=== PATIENT | male | born 1935 | race Caucasian/White ===

== ENCOUNTER 2017-06-04 23:42 | Outpatient (CLI) | payer MEDICARE, OTHER | END 2017-06-04 23:43 | disposition critical access hospital (66) | LOC: EMS 23:42 | PROVIDERS: ATTEND Surgery | DX: R07.89 Other chest pain (principal); R11.0 Nausea; R61 Generalized hyperhidrosis | CPT/HCPCS: A0425; A0427 ==

== ENCOUNTER 2017-06-05 00:01 | Observation (INO) | payer MEDICARE, OTHER ==
[2017-06-05] MEDS ORDERED: NITROGLYCERIN 2% PASTE TOP STA (00:21)
--- NOTE | 2017-06-05 00:24 | ED Physician Documentation ---
PD HPI CHEST PAIN - Stated complaint Stated Complaint: CHEST PN - Chief complaint Chief Complaint: Cardiac - History obtained from History obtained from: Patient, EMS - History of Present Illness Timing - onset: How many hours ago (6) Timing - onset during: Rest Timing - details: Still present Pain level max: 7 Pain level now: 1 Quality: Pain Location: Substernal Improved by: Nitro, ASA Associated symptoms: Diaphoresis, Nausea. No: Shortness of air, Vomiting Similar symptoms before: Has not had sx before - Treatment prior to arrival Treatment prior to arrival: Medics administered 4 baby aspirin and nitroglycerin sublingual x2. - Additional information Additional information: The patient is an 81-year-old male who presents with substernal chest pain that started about 6 hours prior to arrival while sitting watching television. He reports associated nausea and diaphoresis. He denies vomiting or shortness of breath. His pain has persisted since that time. Medics found him to be hypertensive with a blood pressure of 210/110. They administered aspirin and sublingual nitroglycerin x2, which did decrease his pain significantly. The patient denies history of similar symptoms in the past. His past medical history is significant for diabetes, but he has not been taking his metformin. He also has a history of hypertension for which he takes lisinopril. He has history of hyperlipidemia, but is not taking his medication. He quit smoking cigarettes about 35 years ago. Review of Systems Constitutional: denies: Fever Ears: denies: Tinnitus/ringing Nose: denies: Congestion Throat: denies: Sore throat Cardiac: reports: Chest pain / pressure Respiratory: denies: Dyspnea, Cough GI: reports: Nausea. denies: Abdominal Pain, Vomiting : denies: Dysuria Skin: denies: Rash Musculoskeletal: denies: Back pain, Extremity swelling Neurologic: denies: Focal weakness, Numbness, Headache PD PAST MEDICAL HISTORY - Past Medical History Cardiovascular: Hypertension, High cholesterol Neuro: None Endocrine/Autoimmune: Type 2 diabetes - Present Medications Home Medications: Ambulatory Orders Medication Instructions Recorded Confirmed Allopurinol 100 mg PO DAILY 06/05/17 06/05/17 Aspirin 81 mg PO DAILY 06/05/17 06/05/17 Lisinopril 20 mg PO DAILY 06/05/17 06/05/17 Nitroglycerin [Nitrostat] 0.4 mg SL Q5MIN PRN #1 bottle 06/05/17 - Allergies Allergies/Adverse Reactions: Allergies Allergy/AdvReac Type Severity Reaction Status Date / Time No Known Drug Allergies Allergy Verified 06/05/17 00:10 PD ED PE NORMAL - Vitals Vital signs reviewed: Yes (hypertensive) - General General: Alert and oriented X 3, Well developed/nourished - HEENT HEENT: Atraumatic, EOMI, Pharynx benign - Neck Neck: No adenopathy, No JVD - Cardiac Cardiac: No murmur, Other (Bradycardic rate, regular rhythm.) - Respiratory Respiratory: No respiratory distress, Clear bilaterally - Abdomen Abdomen: Soft, Non tender - Back Back: No CVA TTP - Derm Derm: No rash - Extremities Extremities: No edema, No calf tenderness / cord - Neuro Neuro: Alert and oriented X 3, No motor deficit, No sensory deficit Results - Vitals Vitals: Vital Signs - 24 hr 06/05/17 06/05/17 06/05/17 00:03 00:25 00:37 Temperature 36.8 C Heart Rate 54 L 57 L 55 L Respiratory 16 17 17 Rate Blood Pressure 156/90 H 198/88 H 163/80 H O2 Saturation 97 97 97 06/05/17 06/05/17 06/05/17 00:48 01:45 02:13 Temperature Heart Rate 64 72 74 Respiratory 17 16 13 Rate Blood Pressure 161/88 H 130/70 137/84 H O2 Saturation 98 100 99 06/05/17 06/05/17 02:56 03:20 Temperature Heart Rate 82 81 Respiratory 17 20 Rate Blood Pressure 112/98 H 162/79 H O2 Saturation 96 95 Oxygen O2 Source Room air - EKG (time done) 00:18 Rate: Rate (enter#) (45) Rhythm: Sinus bradycardia [place]: Normal Intervals: Normal NH QRS: Normal Ischemia: Normal ST segments Compare to prior EKG: Old EKG unavailable Computer interpretation: Agree with computer - Labs Labs: Laboratory Tests 06/05/17 06/05/17 06/05/17 00:30 00:30 00:30 WBC 12.3 H RBC 4.51 L Hgb 14.2 Hct 41.8 L MCV 92.6 MCH 31.5 H MCHC 34.1 RDW 13.6 Plt Count 205 MPV 8.5 Neut # 10.1 H Lymph # 1.6 [place] # 0.5 Eos # 0.1 Baso # 0.1 Absolute Nucleated RBC 0.00 Nucleated RBCs 0.0 Sodium 139 Potassium 4.4 Chloride 105 Carbon Dioxide 26 Anion Gap 8.0 BUN 16 Creatinine 1.0 Estimated GFR (MDRD) 72 L Glucose 166 H Glycated Hemoglobin Estim Average Glucose Calcium 8.7 Magnesium 1.7 Total Bilirubin 0.6 AST 20 ALT 16 Alkaline Phosphatase 64 Troponin I < 0.04 Total Protein 6.9 Albumin 3.8 Globulin 3.1 Albumin/Globulin Ratio 1.2 Lipase 17 L Urine Color Urine Clarity Urine pH Ur Specific [place] Urine Protein Urine Glucose (UA) Urine Ketones Urine Occult Blood Urine Nitrite Urine Bilirubin Urine Urobilinogen Ur Leukocyte Esterase Urine RBC Urine WBC Ur Squamous Epith Cells Urine Bacteria Ur Microscopic Review Urine Culture Comments 06/05/17 06/05/17 06/05/17 00:30 00:55 03:23 WBC RBC Hgb Hct MCV MCH MCHC RDW Plt Count MPV Neut # Lymph # [place] # Eos # Baso # Absolute Nucleated RBC Nucleated RBCs Sodium Potassium Chloride Carbon Dioxide Anion Gap BUN Creatinine Estimated GFR (MDRD) Glucose Glycated Hemoglobin 5.3 Estim Average Glucose 105 H Calcium Magnesium Total Bilirubin AST ALT Alkaline Phosphatase Troponin I < 0.04 Total Protein Albumin Globulin Albumin/Globulin Ratio Lipase Urine Color YELLOW Urine Clarity CLEAR Urine pH 7.0 Ur Specific [place] 1.020 Urine Protein NEGATIVE Urine Glucose (UA) NEGATIVE Urine Ketones 15 H Urine Occult Blood SMALL H Urine Nitrite NEGATIVE Urine Bilirubin NEGATIVE Urine Urobilinogen 0.2 (NORMAL) Ur Leukocyte Esterase NEGATIVE Urine RBC 6-10 H Urine WBC 0-3 Ur Squamous Epith Cells NONE SEEN Urine Bacteria None Seen Ur Microscopic Review INDICATED Urine Culture Comments NOT INDICATED - Rads (name of study) Portable CXR Radiology: Prelim report reviewed, EMP read contemporaneously, See rad report ( Minor left basilar scarring/atelectasis, otherwise unremarkable single the chest.) PD MEDICAL DECISION MAKING - ED course Complexity details: reviewed results, re-evaluated patient, considered differential, d/w patient, d/w family, d/w communication consultant ED course: The patient's presentation is significant for chest pain of about 6 hours duration, with associated hypertension. It is concerning for likely cardiac etiology. His pain improved significantly after administration of aspirin and sublingual nitroglycerin, and resolved completely after application of nitro paste. His initial cardiac enzymes are negative, and his electrocardiogram does not reveal acute ST elevations. His presentation does not suggest aortic dissection, pulmonary embolus, or congestive heart failure. Treatment in the emergency department included administration of nitro paste one-inch topically. I discussed his condition with hospitalist, Dr. Duncan, who will admit him on observation status for further evaluation and treatment. Departure - Departure Disposition: ED Place in Observation Clinical Impression: Chest pain Qualifiers: Chest pain type: unspecified Qualified Code(s): R07.9 - Chest pain, unspecified Condition: Good Discharge Date/Time: 06/05/17 04:59
[2017-06-05] MEDS ORDERED: NITROGLYCERIN 2% PASTE TOP ONE (00:26)
[2017-06-05 00:43] LABS: BASOPHILS # (AUTO) 0.1 10^3/uL (0.0-0.1); BASOPHILS % (AUTO) 0.7 %; EOSINOPHILS # (AUTO) 0.1 10^3/uL (0.0-0.7); EOSINOPHILS % (AUTO) 0.6 %; HCT - HEMATOCRIT 41.8 % (42.0-52.0); HGB - HEMOGLOBIN 14.2 g/dL (14.0-18.0); LYMPHOCYTES # (AUTO) 1.6 10^3/uL (1.5-3.5); MEAN CORPUSCULAR HEMOGLOBIN 31.5 pg (27.0-31.0); MEAN CORPUSCULAR HGB CONC 34.1 g/dL (32.0-36.0); MEAN CORPUSCULAR VOLUME 92.6 fL (80.0-94.0); MEAN PLATELET VOLUME 8.5 fL (7.4-11.4); MONOCYTES # (AUTO) 0.5 10^3/uL (0.0-1.0); MONOCYTES % (AUTO) 3.9 %; NEUTROPHILS # (AUTO) 10.1 10^3/uL (1.5-6.6); NEUTROPHILS % (AUTO) 81.8 %; RED BLOOD COUNT 4.51 10^6/uL (4.70-6.10); RED CELL DISTRIBUTION WIDTH 13.6 % (12.0-15.0); UNCORRECTED WHITE BLOOD COUNT 12.3 x10^3/uL; WHITE BLOOD COUNT 12.3 x10^3/uL (4.8-10.8)
[2017-06-05 00:54] LABS: ALBUMIN/GLOBULIN RATIO 1.2 (1.0-2.2); BILIRUBIN,TOTAL 0.6 mg/dL (0.2-1.0); CALCIUM 8.7 mg/dL (8.5-10.3); MAGNESIUM 1.7 mg/dL (1.7-2.8); POTASSIUM 4.4 mmol/L (3.5-5.0); TOTAL PROTEIN 6.9 g/dL (6.7-8.2)
--- NOTE | 2017-06-05 00:57 | XRAY Preliminary Report ---
Exam: XR Chest 1 View IMPRESSION: Minor left basilar scarring/atelectasis, otherwise unremarkable single view chest. [facility] SITE ID: [id number]
--- NOTE | 2017-06-05 01:00 | XRAY Report ---
EXAM: CHEST RADIOGRAPHY EXAM DATE: 06/05/2017 12:39 AM. CLINICAL HISTORY: Chest pain. COMPARISON: 05/05/2010. TECHNIQUE: 1 view. FINDINGS: Lungs/Pleura: Minor left base atelectasis/scarring, otherwise no focal opacities evident. No pleural effusion. No pneumothorax. Mediastinum: Within exam limitations, cardiomediastinal contour is normal. Other: No bony abnormality noted. IMPRESSION: Minor left basilar scarring/atelectasis, otherwise unremarkable single view chest. [facility] Referring Provider Line: [phone] SITE ID: [id number]
[2017-06-05 01:06] LABS: BILIRUBIN,URINE NEGATIVE (NEGATIVE)
[2017-06-05 01:10] LABS: UA w/ MICROSCOPIC CHARGE YES
[2017-06-05 01:22] LABS: UR CULTURE IF IND NOT INDICATED; WBC,URINE 0-3 /HPF (0-3)
[2017-06-05] MEDS ORDERED: ONDANSETRON ODT 4 MG TABLET TL PRN (03:28)
[2017-06-05] MEDS ORDERED: ASPIRIN CHEW 81 MG TABLET PO SCH (03:28)
[2017-06-05] MEDS ORDERED: ONDANSETRON 4 MG/2 ML VIAL IVP PRN (03:28)
[2017-06-05] MEDS ORDERED: ACETAMINOPHEN 325 MG TABLET PO PRN (03:28)
[2017-06-05] MEDS ORDERED: SODIUM CHLORIDE FLUSH 0.9% 10 ML SYRINGE IVP PRN (03:28)
[2017-06-05] MEDS ORDERED: HYDROcod/ACETAM 5/325 MG TABLET PO PRN (03:28)
[2017-06-05] MEDS ORDERED: MORPHINE 2 MG/ML SYRINGE IVP PRN (03:28)
[2017-06-05] MEDS ORDERED: NITROGLYCERIN SL 0.4 MG TABLET SL PRN (03:28)
[2017-06-05] MEDS ORDERED: ATORVASTATIN 40 MG TABLET PO SCH (03:32)
[2017-06-05 03:55] LABS: HEMOGLOBIN A1C 0.55 g/dL
--- NOTE | 2017-06-05 05:13 | HISTORY & PHYSICAL EXAMINATION ---
Chief Complaint - Chief Complaint Chief Complaint: Chest pain History of Present Illness - Admitted From Admitted From:: Emergency Department - History Obtained From Records Reviewed: Emergency Department and reviewed records from PCP History obtained from: Patient - History of Present Illness HPI Comment/Other: 81-year-old white male with PMH of hypertension, diabetes, and hyperlipidemia who presents tonight with chest "achiness" that started at 1800 last night after eating dinner. The pain was constant, rated 7-8/10 and radiated to his left shoulder with numbess to his left forearm. He experienced mild indigestion with "burping" and "was in a cold sweat." The patient called 911 and EMS administered 324 chewable aspirin and nitroglycerin which relieved his chest pain and relieved his systolic hypertension > 200. In the ED 1 inch of nitro paste is applied to his chest. Patient has no chest pain upon evaluation for admission. He denies shortness of breath or palpitations during the event. He continues to take his daily 81 mg aspirin at home and his lisinopril for his blood pressure but has stopped taking his simvastatin and metformin per his own accord. 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 Patient's medical record from his PCP's office was reviewed on [facility]. In 2006, he had a pre-surgical cardiac evaluation. A Modified Justin Treadmill test showed a fixed irreversible inferior wall defect and an LVEF 60%. Carotid ultrasound was completed to evaluate a right bruit which showed no carotid stenosis. His initial and 3 hour troponin levels are < 0.04 and there are no acute findings on his EKG. He is admitted to observation on the medical unit for repeat troponin levels at the 6 and 12 hour ocasio. Review of Systems - Constitutional Constitutional: denies: Fatigue, Fever, Chills, Weakness - Eyes Eyes: reports: Corrective lenses (Reading glasses.). denies: Blurred vision, Vision loss - Ears, Nose & Throat Ears, Nose & Throat: reports: Dentures (Upper and lower.). denies: Mouth lesions - Cardiovascular Cariovascular: reports: Chest pain. denies: Irregular heart rate, Palpitations , Edema, Syncope, Orthopnea - Respiratory Respiratory: reports: Cough - Gastrointestinal Gastrointestinal: reports: Nausea. denies: Constipation, Diarrhea, Black stools , Bloody stools, Reflux/heartburn - Genitourinary Genitourinary: reports: Frequency, Nocturia - Musculoskeletal Musculoskeletal: reports: Back pain (Chronic), Gout, Joint pain (Left hip). denies: Muscle aches - Neurological Neurological: denies: Headache, Numbness, Memory problems, Abnormal gait - Psychiatric Psychiatric: reports: Depression (Depression for "many" years.), Anxiety. denies: Suicidal, Homicidal - Hematologic/Lymphatic Hematologic/Lymphatic: reports: Bruising - All Other Systems All Other Systems: reports: Reviewed and negative History - Past Medical History Cardiovascular: reports: Hypertension, High cholesterol (Not taking medication) , Other (Premature ventricular contractions) Respiratory: reports: None Neuro: reports: None Endocrine/Autoimmune: reports: Type 2 diabetes GI: reports: GERD, Other (Diverticulosis) : reports: Benign prostate hypertrophy, Nocturia, Frequency, Kidney stones HEENT: reports: None Psych: reports: Depression, Anxiety, Other (Paranoia (documented in PCP charts)) Musculoskeletal: reports: Gout, Chronic back pain (spinal stenosis), Other ( Pain left hip; decided not to have surgery) Derm: reports: None MRSA Hx?: No Other Past Medical History: Dupuytren's contracture - Past Surgical History General: reports: Colonoscopy (2008) Ortho: reports: Other (Left meniscus repair.) - Family & Social History Family History Comment/Other: Patient's mother at 101 of old age. Both his father and brother had diabetes. His son is alive and healthy. Living arrangement: At home Living Situation: With spouse/s.o. 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 Upon skilled nursing him and his moved to [facility]. They currently live in [place] and the patient is the primary (sole) caregiver to his who has progressively worsening dementia over the past 6- 7 years. He dresses, bathes, and feeds his daily. She does not recognize him or her son anymore. He is home-bound to take care of her and pays someone to do the grocery shopping, it is causing him to miss doctor's appointments. His son lives nearby in [place] although is not able to assist regularly due to running his own businesses. Patient expresses concern about continuing to care for his at home and has been discussing the idea of finding placement for her. He enjoyed exercising, fly fishing, and fly fishing tying which is regrets he is unable to do at this time due to his caretaking responsibilities. - POLST Patient has POLST: No Meds/Allgy - Home Medications Home Medications: Ambulatory Orders Medication Instructions Recorded Confirmed Allopurinol 1 tab PO DAILY 06/05/17 06/05/17 Aspirin 1 tab PO DAILY 06/05/17 06/05/17 Lisinopril 1 tab PO DAILY 06/05/17 06/05/17 - Allergies Allergies/Adverse Reactions: Allergies Allergy/AdvReac Type Severity Reaction Status Date / Time No Known Drug Allergies Allergy Verified 06/05/17 00:10 Exam - Vital Signs Reviewed Vital Signs: Yes Vital Signs: Vital Signs x48h Pulse Resp BP Pulse Ox 06/05/17 04:10 81 19 143/90 H 98 - Physical Exam General Appearance: positive: No acute distress, Alert, Other (Appears comfortable on the stretcher, talkative and interactive.) Eyes Bilateral: positive: Normal inspection, PERRL, EOMI ENT: positive: ENT inspection nml, Pharynx nml, No signs of dehydration Neck: positive: No JVD, Trachea midline, Carotid bruit (Right) Respiratory: positive: Chest non-tender, No respiratory distress, Breath sounds nml Cardiovascular: positive: Regular rate & rhythm, Other (2/6 murmur heard best at the left 4th intercostal space.) Peripheral Pulses: positive: 2+ (Radial and pedal.) Abdomen: positive: Non-tender, No organomegaly, Nml bowel sounds, No distention Skin: positive: Color nml, Other (Multiple bruises to bilateral arms.) Extremities: positive: Non-tender, Full ROM, Nml appearance Neurologic/Psychiatric: positive: Oriented x3, Motor nml, Sensation nml, Mood/ affect nml Conclusion/Plan - Problem List (1) Chest pain Conclusion/Plan: Atypical presentation of angina related diabetes versus esophageal spasm. Patient's chest "achiness" occurred after eating dinner and was associated with pain that radiated to his left shoulder and a "cold sweat." His initial and 3 hours troponin values are both < 0.04; and no acute changes seen on EKG. * Repeat troponin at 0600 and 1200. * Cardiac stress test to be completed inpatient vs outpatient. * Telemetry * Assess and monitor for recurrent episodes of chest pain. * Vital signs every 8 hours. Qualifiers: Chest pain type: unspecified Qualified Code(s): R07.9 - Chest pain, unspecified (2) Diabetes Conclusion/Plan: Patient with diabetes previously controlled with Metformin. He has not been taking his Metformin or checking his blood sugars. * ACHS blood sugar checks. * ACHS 1-5 unit sliding scale Novolog insulin. * Hgb A1c * Level III carbohydrate controlled diet. * Address patient's need/reasons for no longer taking his Metformin after reviewing Hgb A1c results. Qualifiers: Diabetes mellitus type: type 2 Diabetes mellitus complication status: with neurologic complications Diabetes mellitus complication detail: with unspecified neuropathy Diabetes mellitus intermediate designer insulin use: without mcfp use Qualified Code(s): E11.40 - Type 2 diabetes mellitus with diabetic neuropathy, unspecified (3) Hypertension Conclusion/Plan: Hypertension not at goal therapy. * Continue home regimen. * 1 inch (gm) nitroglycerin paste placed in ED. * Vital signs every 8 hours. Qualifiers: Hypertension type: unspecified secondary hypertension Qualified Code(s): I15.9 - Secondary hypertension, unspecified; I15 - Secondary hypertension - Lab Results Fish Bones: 06/05/17 00:30 06/05/17 00:30 Issues/Core Measures - Anticipated LOS Anticipated Stay Length: Less than 2 midnights - DVT/VTE - Prophylaxis VTE/DVT Device ordered at admit?: No Not Ordered - Low Risk: Very low risk (Ambulatory) VTE/DVT Prophylaxis med ordered at admit?: No
[2017-06-05] MEDS ORDERED: SODIUM CHLORIDE FLUSH 0.9% 10 ML SYRINGE IVP SCH (06:00)
--- NOTE | 2017-06-05 07:10 | Discharge Plan ---
Discharge Plan Disposition: Home, Self Care Condition: Good Prescriptions: Nitroglycerin [Nitrostat] 0.4 mg SL Q5MIN PRN #1 bottle PRN Reason: Chest Pain Diet: Cardiac Activity Restrictions: No Restrictions Shower Restrictions: No Driving Restrictions: No Assistance Devices: Walker, Cane Weight Bearing: Full Weight Instruction Topics: Heart Failure Warning Signs Additional Instructions or Follow Up instructions: Please take all home medications as prescribed. You will need to see your spoke maker within the first week of discharge to have repeat stress test and echo to rule out possible cardiac problems. Continue to eat a heart healthy diet and drink plenty of water throughout the day. You need to avoid soda and limit caffeine because these can dehydrate you . Get plenty of exercise throughout the day and take rest breaks often. Walking is a great way to exercise. Get plenty of sleep at night, 7-8 hours is preferred. If you snore, you will need to talk to your doctor about a sleep study. Sleep apnea can weaken your hearts ability to contract normally. Be sure to follow up with your primary care provider within the first week of discharge. you will need to schedule an appointment with them. Be sure to let they know you were just released from the hospital. Call 911 or return to the nearest ER if you have chest pain, shortness of breath , fever not relieved with medications or stroklike symptoms. You need to schedule a electrocardiogram with your spoke maker as an outpatient No Smoking: If you smoke, Please STOP! Call for help. Follow-up with: David Winchester MD [Primary Care Provider] -
--- NOTE | 2017-06-05 07:10 | DISCHARGE SUMMARY ---
Discharge Summary Admit Date: 06/05/17 Discharge Date: 06/05/17 (discharge for MS rule out) Discharging Provider: Karyna Rome Primary Care Provider: Pb Winchester MD Code Status: Do Not Attempt Resuscitation Condition at Discharge: Good Discharge Disposition: 01 Home, Self Care Discharge Facility Name: home - DIAGNOSES Admission Diagnoses: 1. chest pain, unspecified 2. Type 2 diabetes mellitus with other diabetic neurological complication 3. Essential primary hypertension Discharge Diagnoses with Status of Each Condition: 1. Acute chest pain with probably angina, unspecified 2. Type 2 diabetes mellitus with other diabetic neurological complication 3. Essential primary hypertension - HPI History of Present Illness: 81-year-old white male with PMH of hypertension, diabetes, and hyperlipidemia who presents tonight with chest "achiness" that started at 1800 last night after eating dinner. The pain was constant, rated 7-8/10 and radiated to his left shoulder with numbess to his left forearm. He experienced mild indigestion with "burping" and "was in a cold sweat." The patient called 911 and EMS administered 324 chewable aspirin and nitroglycerin which relieved his chest pain and relieved his systolic hypertension > 200. In the ED 1 inch of nitro paste is applied to his chest. Patient has no chest pain upon evaluation for admission. He denies shortness of breath or palpitations during the event. He continues to take his daily 81 mg aspirin at home and his lisinopril for his blood pressure but has stopped taking his simvastatin and metformin per his own accord. 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 Patient's medical [facility] In 2006, he had a pre-surgical cardiac evaluation. A Modified Justin Treadmill test showed a fixed irreversible inferior wall defect and an LVEF 60%. Carotid ultrasound was completed to evaluate a right bruit which showed no carotid stenosis. His initial and 3 hour troponin levels are < 0.04 and there are no acute findings on his EKG. He is admitted to observation on the medical unit for repeat troponin levels at the 6 and 12 hour ocasio. - CONSULTS | PROCEDURES Consultations: none Procedures: none - HOSPITAL COURSE Hospital Course: Patient is an 81 year old admitted for chest pain rule out. He was admitted from the ER with troponins trended. Patient was continued on chest pain protocol including aspirin, nitro, morphine oxygen and statin therapy. He remained on lisinopril home dosage. He had EKG x 2 and remained in sinus rate and rhythm. He had nitropaste that helped and pain resolved. His chest xray was with no acute process. He was able to go home with followup stress test and echo with primary care referral to cardiology. Patient went home with son with referral and instructions for followup - ALLERGIES Allergies/Adverse Reactions: Allergies Allergy/AdvReac Type Severity Reaction Status Date / Time No Known Drug Allergies Allergy Verified 06/05/17 00:10 - MEDICATIONS Home Medications: Ambulatory Orders Medication Instructions Recorded Confirmed Allopurinol 100 mg PO DAILY 06/05/17 06/05/17 Aspirin 81 mg PO DAILY 06/05/17 06/05/17 Lisinopril 20 mg PO DAILY 06/05/17 06/05/17 Nitroglycerin [Nitrostat] 0.4 mg SL Q5MIN PRN #1 bottle 06/05/17 - PHYSICAL EXAM AT DISCHARGE General Appearance: positive: No acute distress, Alert Eyes Bilateral: positive: Normal inspection, PERRL, EOMI ENT: positive: ENT inspection nml, Pharynx nml, No signs of dehydration Neck: positive: Nml inspection, Thyroid nml, No JVD, Trachea midline Respiratory: positive: Chest non-tender, No respiratory distress, Breath sounds nml Cardiovascular: positive: Regular rate & rhythm, No murmur, No gallop Peripheral Pulses: positive: 2+ Abdomen: positive: Non-tender, No organomegaly, Nml bowel sounds, No distention Back: positive: Nml inspection. negative: CVA tenderness (R), CVA tenderness (L ) Skin: positive: Color nml, No rash, Warm, Dry Extremities: positive: Non-tender, Full ROM Neurologic/Psychiatric: positive: Oriented x3, CN's nml (2-12), Motor nml, Sensation nml, Mood/affect nml - LABS Result Diagrams: 06/05/17 00:30 06/05/17 00:30 - DIAGNOSTIC IMAGING Diagnostic Imaging Results: Final report reviewed - FOLLOW UP Follow Up: Patient was instructed to followup with Dr Winchester within 1 week of discharge and to return to the ER if symptoms reoccur. Time spent with patient was 40 minutes for education, assessment and planning.
[2017-06-05] MEDS: INSULIN ASPART 300 UNIT/3 ML PEN SUBQ SCH ×2 (08:12→12:08)
[2017-06-05] MEDS ORDERED: POLYETHYLENE GLYCOL 3350 17 GM PACKET PO SCH (09:00)
[2017-06-05] MEDS ORDERED: LISINOPRIL 20 MG TABLET PO SCH (09:00)
[2017-06-05] MEDS ORDERED: ALLOPURINOL 100 MG TABLET PO SCH (09:00)
[2017-06-05 12:11] VITALS: BP 143/73
== END 2017-06-05 13:12 | disposition home or self-care (01) ==
LOC: EDUNIT# → ED 00:01 → SUPCPDRO 00:01 → MS 03:29
PROVIDERS: ADMIT Specialist; ATTEND Nurse Practitioner
DX: R07.9 Chest pain, unspecified (principal); E11.40 Type 2 diabetes mellitus with diabetic neuropathy, unspecified; I10 Essential (primary) hypertension; E78.5 Hyperlipidemia, unspecified; H54.7 Unspecified visual loss; N40.1 Benign prostatic hyperplasia with lower urinary tract symptoms; R35.0 Frequency of micturition; R35.1 Nocturia; F32.9 Major depressive disorder, single episode, unspecified; F41.9 Anxiety disorder, unspecified; Z79.82 Long term (current) use of aspirin; Z87.891 Personal history of nicotine dependence
CPT/HCPCS: 36415; 71010; 80053; 81001; 83036; 83690; 83735; 84484; 85025; 93005; 99285; A9270; G0378; 81003; 87086

== ENCOUNTER 2019-01-15 10:47 | Outpatient (CLI) | payer MEDICARE, OTHER | END 2019-01-15 10:48 | disposition critical access hospital (66) | LOC: EMS 10:47 | PROVIDERS: ATTEND Surgery | DX: R47.81 Slurred speech (principal) | CPT/HCPCS: A0425; A0427 ==

== ENCOUNTER 2019-01-15 11:08 | Emergency (ER) | payer MEDICARE, OTHER ==
--- NOTE | 2019-01-15 11:21 | ED Physician Documentation ---
PD HPI FOCAL NEURO - Stated complaint Stated Complaint: POSS STROKE - Chief complaint Chief Complaint: Neuro - History obtained from History obtained from: Patient, EMS - History of Present Illness Timing - onset: Today (The patient got up from sleep and seemed to feel okay. He then went downstairs and made himself some breakfast and as he was drinking some coffee it dribbled out the right side of his mouth. He then went into the bathroom to shave and noticed a right facial droop. He did not feel any weakness of his arms or legs. He did not have any headache. EMS was called and brought him here with a notice of a facial droop without any other focal weakness. He thought he was having some troubles getting words out when talking with dispatcher but was not sure whether it was because of the facial muscles.) Timing - duration: Hours (3-4 hours or longer (awoke with symptoms)) Timing - details: Abrupt onset, Still present Severity of deficit: Moderate Weakness: Face. No: Arm, Leg Numbness: Face. No: Arm, Leg Associated symptoms: No: Headache, Nausea / vomiting Contributing factors: negative: Anticoagulated, Vascular dz, Atrial fibrillation Baseline status: positive: A&OX3, ambulatory, indep Similar symptoms before: Has not had sx before Recently seen: Not recently seen Review of Systems Constitutional: denies: Fever Nose: denies: Rhinorrhea / runny nose, Congestion Throat: denies: Sore throat Cardiac: denies: Chest pain / pressure, Palpitations Respiratory: denies: Dyspnea, Cough GI: denies: Abdominal Pain, Nausea, Vomiting Neurologic: reports: Focal weakness, Difficulty speaking (just briefly this morning). denies: Altered mental status, Headache PD PAST MEDICAL HISTORY - Past Medical History Cardiovascular: Hypertension, High cholesterol Respiratory: None Endocrine/Autoimmune: Type 2 diabetes GI: GERD, Other (Diverticulosis) : Benign prostate hypertrophy, Nocturia, Frequency, Kidney stones HEENT: None Psych: Depression, Anxiety, Other (Paranoia (documented in PCP charts)) Musculoskeletal: Gout, Chronic back pain (spinal stenosis), Other (Pain left hip; decided not to have surgery) Derm: None - Past Surgical History Past Surgical History: No General: Colonoscopy (2008) Ortho: Other (Left meniscus repair.) - Present Medications Home Medications: Ambulatory Orders Medication Instructions Recorded Confirmed Allopurinol 100 mg PO DAILY 06/05/17 06/05/17 Aspirin 81 mg PO DAILY 06/05/17 06/05/17 Lisinopril 20 mg PO DAILY 06/05/17 06/05/17 Nitroglycerin [Nitrostat] 0.4 mg SL Q5MIN PRN #1 bottle 06/05/17 Clopidogrel [Plavix] 75 mg PO DAILY #10 tablet 01/15/19 - Allergies Allergies/Adverse Reactions: Allergies Allergy/AdvReac Type Severity Reaction Status Date / Time No Known Drug Allergies Allergy Verified 01/15/19 11:18 - Social History Does the pt smoke?: No Smoking Status: Former smoker Does the pt drink ETOH?: No Does the pt have substance abuse?: No - Immunizations Immunizations are current?: Yes - POLST Patient has POLST: No PD ED PE NORMAL - Vitals Vital signs reviewed: Yes - General General: Alert and oriented X 3, Well developed/nourished - HEENT HEENT: Ears normal, Moist mucous membranes, Pharynx benign - Neck Neck: Supple, no meningeal sign, No adenopathy, No JVD - Cardiac Cardiac: RRR, No murmur - Respiratory Respiratory: Clear bilaterally - Abdomen Abdomen: Soft, Non tender - Back Back: No CVA TTP - Derm Derm: Normal color, Warm and dry - Extremities Extremities: No tenderness to palpate, Normal ROM s pain, No edema, No calf tenderness / cord - Neuro Neuro: Alert and oriented X 3, Normal speech, Other (right face with focal weakness lower face. The forehead appears normal function for eyebrow raising. ) NIHSS - Level of Consciousness Level of consciousness: (0) Alert, Keenly responsive LOC Questions: (0) Answers both Q's correct LOC Commands: (0) Performs both correctly - Gaze Best Gaze: (0) Normal - Visual Visual: (0) No loss - Facial Palsy Facial Palsy: (2) Partial paralysis - Motor Arms (both separate) Motor Arm (right): (0) No drift Motor Arm (left): (0) No drift - Motor Legs (both separate) Motor Leg (right): (0) No drift Motor Leg (left): (0) No drift - Limb Ataxia Limb Ataxia: (0) Absent - Sensory Sensory: (0) Normal - Best Language Best Language: (0) No aphasia - Dysarthria Dysarthria: (0) Normal - Extinction and Inattention (formally neg Extinction and inattention: (0) No abnormality - Total Score/Results Total Score/Result: 2 Results - Vitals Vitals: Vital Signs - 24 hr 01/15/19 01/15/19 01/15/19 11:11 12:56 13:39 Temperature 36.7 C 36.6 C Heart Rate 55 L 67 73 Respiratory 15 20 20 Rate Blood Pressure 178/91 H 189/86 H 156/116 H O2 Saturation 99 100 99 Oxygen O2 Source Room air - Labs Labs: Laboratory Tests 01/15/19 01/15/19 01/15/19 11:26 11:26 11:26 WBC 7.2 RBC 4.52 L Hgb 14.6 Hct 42.5 MCV 93.9 MCH 32.3 H MCHC 34.4 RDW 13.2 Plt Count 215 MPV 7.8 Neut # (Auto) 4.4 Lymph # (Auto) 1.8 Mccormick # (Auto) 0.7 Eos # (Auto) 0.2 Baso # (Auto) 0.1 Absolute Nucleated RBC 0.00 Nucleated RBC % 0.0 ESR 1 Sodium 135 Potassium 3.6 Chloride 97 L Carbon Dioxide 30 Anion Gap 8.0 BUN 16 Creatinine 1.0 Estimated GFR (MDRD) 72 L Glucose 111 H Calcium 8.9 Total Bilirubin 1.1 H AST 36 ALT 43 Alkaline Phosphatase 60 Total Protein 7.1 Albumin 3.8 Globulin 3.3 Albumin/Globulin Ratio 1.2 Lipase 31 PD MEDICAL DECISION MAKING - ED course Complexity details: re-evaluated patient (His facial weakness is improving while here in the ER. There is still a very minimal facial weakness but much improved and is able to walk steadily and speak clearly. I talked with stroke neurology who said he would not be a candidate for any intervention either TPA or endovascular. They did review the CTA showing the noncritical narrowings. There is suggestion was to add Plavix daily for 3 months to his baby aspirin.), considered differential (Facial weakness along with some difficulty speaking and feeling a bit off balance would be suggestive of a central cause. His forehead does not seem to be involved but only the lower part of the face on the right side also suggesting central cause as opposed to a facial nerve palsy. We evaluated him as potential stroke. His symptoms are improving on route.), d/w patient Departure - Departure Disposition: 07 Against Medical Advice Clinical Impression: Stroke-like symptoms, Facial weakness, TIA (transient ischemic attack) Condition: Stable Record reviewed to determine appropriate education?: Yes Instructions: ED Transient Ischemic Attack Follow-Up: Susan Becker MD [Provider Admit Priv/Credential] - Prescriptions: Clopidogrel [Plavix] 75 mg PO DAILY #10 tablet Comments: Continue your baby aspirin and add Plavix 75 mg daily for 3 months. I wrote a prescription for 10 days worth and follow-up with your primary care this week or early next week for follow-up, call today for follow-up appointment. Have her prescribe the remaining 3 months of medication so you can get it through [facility] as you request. Your symptoms are improving so it seems likely to be a TIA although there is possibility may have had a small stroke that just is not showing on the basic scan. Common treatment for this would be to have you in the hospital for a day for watching for worsening of symptoms and likely an ultrasound of your heart and MRI of your brain. I understand you want to go home and did not want to be admitted. Please return if you have worsening symptoms again. Follow-up with your primary care in the next few days. We would like to take care of you if you have worsening symptoms again. Discharge Date/Time: 01/15/19 13:45
[2019-01-15] MEDS ORDERED: SODIUM CHLORIDE 0.9% 1,000 ML IV ONE (11:30)
[2019-01-15] MEDS ORDERED: IOVERSOL 320 100 ML VIAL IVP ONE ×2 (11:45→12:33)
[2019-01-15 11:52] LABS: BASOPHILS # (AUTO) 0.1 10^3/uL (0.0-0.1); BASOPHILS % (AUTO) 0.7 %; EOSINOPHILS # (AUTO) 0.2 10^3/uL (0.0-0.7); HGB - HEMOGLOBIN 14.6 g/dL (14.0-18.0); LYMPHOCYTES # (AUTO) 1.8 10^3/uL (1.5-3.5); LYMPHOCYTES % (AUTO) 25.1 %; MEAN CORPUSCULAR HEMOGLOBIN 32.3 pg (27.0-31.0); MEAN CORPUSCULAR HGB CONC 34.4 g/dL (32.0-36.0); MEAN CORPUSCULAR VOLUME 93.9 fL (80.0-94.0); MEAN PLATELET VOLUME 7.8 fL (7.4-11.4); MONOCYTES # (AUTO) 0.7 10^3/uL (0.0-1.0); MONOCYTES % (AUTO) 10.3 %; NEUTROPHILS # (AUTO) 4.4 10^3/uL (1.5-6.6); NEUTROPHILS % (AUTO) 60.9 %; PLT - PLATELET COUNT 215 10^3/uL (130-450); RED BLOOD COUNT 4.52 10^6/uL (4.70-6.10); RED CELL DISTRIBUTION WIDTH 13.2 % (12.0-15.0); WHITE BLOOD COUNT 7.2 x10^3/uL (4.8-10.8)
[2019-01-15 12:04] LABS: ALBUMIN 3.8 g/dL (3.2-5.5); ALBUMIN/GLOBULIN RATIO 1.2 (1.0-2.2); BILIRUBIN,TOTAL 1.1 mg/dL (0.2-1.0); CALCIUM 8.9 mg/dL (8.5-10.3); TOTAL PROTEIN 7.1 g/dL (6.7-8.2)
--- NOTE | 2019-01-15 12:20 | CT Report ---
Reason: right facial droop this morning Procedure Date: 01/15/2019 Accession Number: [id number] / [id number] Procedure: CT - Head W/O Stroke Protocol CPT Code: FULL RESULT: EXAM: CT HEAD EXAM DATE: 01/15/2019 12:00 PM. CLINICAL HISTORY: Right facial droop this morning. COMPARISON: Head angio 01/15/2019 11:56 AM. TECHNIQUE: Multiaxial CT images were obtained from the foramen magnum to the vertex. Reformats: Coronal IV contrast: None. In accordance with CT protocol optimization, one or more of the following dose reduction techniques were utilized for this exam: automated exposure control, adjustment of mA and/or KV based on patient size, or use of iterative reconstructive technique. FINDINGS: Parenchyma: No intraparenchymal hemorrhage. No evidence of mass, midline shift, or CT findings of acute infarction. Potts-white differentiation is distinct. Age-related volume loss is seen. Mild periventricular white matter hypodensity is seen. Extraaxial Spaces: Normal for age. No subdural or epidural collections identified. Ventricles: Normal in size and position. No hydrocephalus. Sinuses and Orbits: Imaged paranasal sinuses, orbits, and mastoids show no significant abnormality. Bones: No evidence of fracture or calvarial defect. Other: None. IMPRESSION: 1. Negative noncontrast CT scan of the head. No acute abnormality. 2. Mild senescent change. RADIA The critical test notification system was initiated by Dr. Kenny Grullon at 12:16 PM on 01/15/2019. Critical test: The above critical test findings were discussed with Jay Carson by Dr. Kenny Grullon at 12:22 PM on 01/15/2019.
--- NOTE | 2019-01-15 12:26 | CT Report ---
Reason: R sided facial droop Procedure Date: 01/15/2019 Accession Number: [id number] / [id number] Procedure: CT - ANGIO HEAD W CPT Code: FULL RESULT: EXAM: CT ANGIOGRAM HEAD. CT SCAN OF THE HEAD WITH CONTRAST. EXAM DATE: 01/15/2019 12:09 PM CLINICAL HISTORY: 83-year-old man with right-sided facial droop. COMPARISON: HEAD W/O STROKE PROTOCOL 01/15/2019 11:56 AM. TECHNIQUE: - CT Scan Head: Using a multidetector scanner, axial images were acquired from the foramen magnum to the skull vertex following contrast administration. - CT Angiogram: Using a multidetector scanner, high-resolution axial images were acquired from the skull base through vertex following rapid infusion of intravenous contrast. Reformats: Multiplanar MIP reformats were reconstructed. Nascet criteria used for stenosis measurement. IV Contrast: OPTI 320 90mL. In accordance with CT protocol optimization, one or more of the following dose reduction techniques were utilized for this exam: automated exposure control, adjustment of mA and/or KV based on patient size, or use of iterative reconstructive technique. FINDINGS: CTA HEAD: RIGHT: - Visualized Internal Carotid: Patent without significant stenosis or aneurysm. No evidence of atherosclerotic plaque. - Anterior Cerebral: Patent without significant stenosis or aneurysm. The A1 segment is hypoplastic, a normal variant. - Middle Cerebral: Patent without significant stenosis or aneurysm. - Posterior Cerebral: Patent without significant stenosis or aneurysm. - Posterior Communicating: Not well seen. - Visualized Vertebral: Patent without significant stenosis or dissection. LEFT: - Visualized Internal Carotid: Patent without significant stenosis or aneurysm. No evidence of atherosclerotic plaque. - Anterior Cerebral: Patent without significant stenosis or aneurysm. - Middle Cerebral: Patent, but there is mild stenosis (less than 50% luminal narrowing) along the M1 segment and moderate to high-grade stenosis (approximate 70% luminal narrowing) at the origin of the superior temporal branch (image 68, series 8). - Posterior Cerebral: Patent without significant stenosis or aneurysm. - Posterior Communicating: Not well seen. - Visualized Vertebral: Patent without significant stenosis or dissection. 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 CENTRAL: - Anterior Communicating: Patent. No aneurysm. - Basilar: Patent without significant stenosis, dissection, or aneurysm. POSTCONTRAST HEAD: No abnormal enhancement. IMPRESSION: 1. 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 There is also mild narrowing (less than 50%) of the M1 segment on the side. RADIA
--- NOTE | 2019-01-15 12:30 | CT Report ---
Reason: right facial droop this morning Procedure Date: 01/15/2019 Accession Number: [id number] / [id number] Procedure: CT - ANGIO NECK W/WO CPT Code: FULL RESULT: EXAM: CT ANGIOGRAM NECK EXAM DATE: 01/15/2019 12:09 PM. CLINICAL HISTORY: 83-year-old man with right facial droop this morning. COMPARISON: None. TECHNIQUE: Routine axial helical imaging was performed from the skull base through the aortic arch. Reconstructions: Routine multiplanar 3D MIP reconstructions. IV Contrast: OPTI 320 90mL. Evaluation of arterial stenosis is based on a NASCET method of measurement. In accordance with CT protocol optimization, one or more of the following dose reduction techniques were utilized for this exam: automated exposure control, adjustment of mA and/or KV based on patient size, or use of iterative reconstructive technique. FINDINGS: RIGHT: - Common and Internal Carotid: Patent without signficant stenosis. No evidence of atherosclerotic plaque at the bifurcation. Stenosis by NASCET criteria: 0%. No evidence of dissection. - External Carotid: Unremarkable. - Vertebral: Patent without significant stenosis. No evidence of dissection. LEFT: - Common and Internal Carotid: Patent without signficant stenosis. There is trace calcified atherosclerotic plaque at the bifurcation and along the siphon. Stenosis by NASCET criteria: 0%. No evidence of dissection. - External Carotid: Unremarkable. - Vertebral: Patent without significant stenosis. No evidence of dissection. SOFT TISSUES AND BONES: Visualized soft tissues are unremarkable. Lung apices are clear. No evidence of acute fracture or malalignment of the cervical spine. IMPRESSION: 1. Normal. Carotid and vertebral arteries are patent without significant stenosis, atherosclerotic plaque, or dissection. RADIA
[2019-01-15] MEDS ORDERED: CLOPIDOGREL 75 MG TABLET PO STA (13:21)
[2019-01-15 13:40] VITALS: BP 156/116
== END 2019-01-15 13:45 | disposition home or self-care (01) ==
LOC: EDUNIT# → ED 11:08
DX: G45.9 Transient cerebral ischemic attack, unspecified (principal); I10 Essential (primary) hypertension; E11.9 Type 2 diabetes mellitus without complications; Z79.82 Long term (current) use of aspirin; Z87.891 Personal history of nicotine dependence
CPT/HCPCS: 36415; 70450; 70496; 70498; 80053; 83690; 85025; 85651; 93005; 99284; A9270; Q9967

== ENCOUNTER 2019-01-16 08:43 | Outpatient (CLI) | payer MEDICARE, OTHER | END 2019-01-16 08:44 | disposition critical access hospital (66) | LOC: EMS 08:43 | PROVIDERS: ATTEND Surgery | DX: R29.810 Facial weakness (principal) | CPT/HCPCS: A0425; A0429 ==

== ENCOUNTER 2019-01-16 09:05 | Inpatient (IN) | payer MEDICARE, OTHER ==
--- NOTE | 2019-01-16 09:17 | ED Physician Documentation ---
PD HPI FOCAL NEURO - Stated complaint Stated Complaint: R SIDE WEAKNESS - Chief complaint Chief Complaint: Neuro - History obtained from History obtained from: Patient - History of Present Illness Timing - onset: Today Timing - duration: Hours Timing - details: Abrupt onset, Still present Time of symptom onset unknown: Time of onset unknown Severity of deficit: Moderate Weakness: Face. No: Arm, Hand, Leg, Foot, Right, Left Numbness: No: Face, Arm, Hand, Leg, Foot, Right, Left Associated symptoms: No: Headache Contributing factors: negative: Anticoagulated Baseline status: positive: A&OX3, ambulatory, indep Similar symptoms before: Diagnosis (TIA) Recently seen: Emergency Dept - Additional information Additional information: 83-year-old male who has had a recent elevation his blood pressure has doubled up on his hydrochlorothiazide. He was seen in the emergency department ye sterday with a right sided facial droop and this was sparing the forehead and likely a central process. He had workup including CT Justyna of the head and neck without finding of large vessel occlusion. He did have some narrowing that was considered noncritical. He was hydrated and improved and refused hospitalization. He is come back here this morning with repeat symptoms. He states that he has been drinking a lot of fluid and urinating a lot.He reports that he went to the gym and did an hour of workout as usual something he does every other day and he did this the day before yesterday. Review of Systems Constitutional: denies: Fever, Chills, Myalgias Eyes: denies: Decreased vision Ears: denies: Ear pain Nose: denies: Rhinorrhea / runny nose, Congestion Throat: denies: Sore throat Cardiac: denies: Chest pain / pressure, Palpitations Respiratory: denies: Dyspnea, Cough GI: denies: Abdominal Pain, Nausea, Vomiting : reports: Frequency. denies: Dysuria Musculoskeletal: denies: Neck pain, Back pain, Extremity pain Neurologic: reports: Focal weakness, Difficulty speaking. denies: Generalized weakness, Numbness, Syncope, Seizure, Confused, Headache, Head injury, LOC PD PAST MEDICAL HISTORY - Past Medical History Cardiovascular: Hypertension, High cholesterol Respiratory: None Endocrine/Autoimmune: Type 2 diabetes GI: GERD, Other (Diverticulosis) : Benign prostate hypertrophy, Nocturia, Frequency, Kidney stones HEENT: None Psych: Depression, Anxiety, Other (Paranoia (documented in PCP charts)) Musculoskeletal: Gout, Chronic back pain (spinal stenosis), Other (Pain left hip; decided not to have surgery) Derm: None - Past Surgical History Past Surgical History: No General: Colonoscopy (2008) Ortho: Other (Left meniscus repair.) - Present Medications Home Medications: Ambulatory Orders Medication Instructions Recorded Confirmed Allopurinol 100 mg PO DAILY 06/05/17 06/05/17 Aspirin 81 mg PO DAILY 06/05/17 06/05/17 Lisinopril 20 mg PO DAILY 06/05/17 06/05/17 Nitroglycerin [Nitrostat] 0.4 mg SL Q5MIN PRN #1 bottle 06/05/17 Clopidogrel [Plavix] 75 mg PO DAILY #10 tablet 01/15/19 - Allergies Allergies/Adverse Reactions: Allergies Allergy/AdvReac Type Severity Reaction Status Date / Time No Known Drug Allergies Allergy Verified 01/16/19 09:10 - Social History Does the pt smoke?: No Smoking Status: Former smoker Does the pt drink ETOH?: No Does the pt have substance abuse?: No - Immunizations Immunizations are current?: Yes - POLST Patient has POLST: No PD ED PE NORMAL - Vitals Vital signs reviewed: Yes (hypertensive ) - General General: Alert and oriented X 3, No acute distress, Well developed/nourished - HEENT HEENT: Atraumatic, PERRL, EOMI, Ears normal, Other (dry mucous membranes ) - Neck Neck: Supple, no meningeal sign, No bony TTP - Cardiac Cardiac: RRR, No murmur - Respiratory Respiratory: No respiratory distress, Clear bilaterally - Abdomen Abdomen: Soft, Non tender - Back Back: No CVA TTP, No spinal TTP - Derm Derm: Normal color, Warm and dry, No rash - Extremities Extremities: No deformity, No edema - Neuro Neuro: Alert and oriented X 3, Other (mildly dysarthric speech, facial asymetry with right sided droop sparring the forehead. ) Eye Opening: Spontaneous Motor: Obeys Commands Verbal: Oriented GCS Score: 15 - Psych Psych: Normal mood, Normal affect NIHSS - Time Time: 10:00 - Level of Consciousness Level of consciousness: (0) Alert, Keenly responsive LOC Questions: (0) Answers both Q's correct LOC Commands: (0) Performs both correctly - Gaze Best Gaze: (0) Normal - Visual Visual: (0) No loss - Facial Palsy Facial Palsy: (2) Partial paralysis - Motor Arms (both separate) Motor Arm (right): (0) No drift Motor Arm (left): (0) No drift - Motor Legs (both separate) Motor Leg (right): (0) No drift Motor Leg (left): (0) No drift - Limb Ataxia Limb Ataxia: (0) Absent - Sensory Sensory: (0) Normal - Best Language Best Language: (0) No aphasia - Dysarthria Dysarthria: (1) [id number] dysarthria - Extinction and Inattention (formally neg Extinction and inattention: (0) No abnormality - Total Score/Results Total Score/Result: 3 Results - Vitals Vitals: Vital Signs - 24 hr 01/16/19 01/16/19 09:05 11:31 Temperature 36.8 C Heart Rate 87 75 Respiratory 14 18 Rate Blood Pressure 191/91 H 170/91 H O2 Saturation 100 99 Oxygen O2 Source Room air - EKG (time done) 0909 Rate: Rate (enter#) (56) Rhythm: NSR Compare to prior EKG: Unchanged from prior EKG (SPT 01-15-19 no changes) Computer interpretation: Agree with computer - Labs Labs: Laboratory Tests 01/16/19 01/16/19 01/16/19 09:17 09:17 09:17 WBC 8.1 RBC 4.65 L Hgb 14.9 Hct 43.5 MCV 93.5 MCH 32.1 H MCHC 34.3 RDW 13.4 Plt Count 226 MPV 8.0 Neut # (Auto) 4.8 Lymph # (Auto) 2.2 [place]ell # (Auto) 0.9 Eos # (Auto) 0.2 Baso # (Auto) 0.1 Absolute Nucleated RBC 0.01 Nucleated RBC % 0.1 Sodium 140 Potassium 3.4 L Chloride 101 Carbon Dioxide 32 Anion Gap 7.0 BUN 15 Creatinine 1.1 Estimated GFR (MDRD) 64 L Glucose 103 H Calcium 9.2 Total Bilirubin 0.9 AST 38 ALT 44 Alkaline Phosphatase 53 Troponin I < 0.04 Total Protein 7.2 Albumin 3.9 Globulin 3.3 Albumin/Globulin Ratio 1.2 Lipase 35 Urine Color Urine Clarity Urine pH Ur Specific [place] Urine Protein Urine Glucose (UA) Urine Ketones Urine Occult Blood Urine Nitrite Urine Bilirubin Urine Urobilinogen Ur Leukocyte Esterase Ur Microscopic Review Urine Culture Comments 01/16/19 10:20 WBC RBC Hgb Hct MCV MCH MCHC RDW Plt Count MPV Neut # (Auto) Lymph # (Auto) Cory[place] # (Auto) Eos # (Auto) Baso # (Auto) Absolute Nucleated RBC Nucleated RBC % Sodium Potassium Chloride Carbon Dioxide Anion Gap BUN Creatinine Estimated GFR (MDRD) Glucose Calcium Total Bilirubin AST ALT Alkaline Phosphatase Troponin I Total Protein Albumin Globulin Albumin/Globulin Ratio Lipase Urine Color YELLOW Urine Clarity CLEAR Urine pH 6.0 Ur Specific [place] 1.010 Urine Protein NEGATIVE Urine Glucose (UA) NEGATIVE Urine Ketones NEGATIVE Urine Occult Blood NEGATIVE Urine Nitrite NEGATIVE Urine Bilirubin NEGATIVE Urine Urobilinogen 0.2 (NORMAL) Ur Leukocyte Esterase NEGATIVE Ur Microscopic Review NOT INDICATED Urine Culture Comments NOT INDICATED Procedures - IVC sono (time) 1005 Bedside IVC sono: IVC measures (cm) (0.73), IVC collapsed c insp (cm) (complete), Significant dehydration (est 2-3 liter deficit) PD MEDICAL DECISION MAKING - ED course Complexity details: reviewed old records, reviewed results, re-evaluated patient, considered differential, d/w patient, d/w family ED course: 83-year-old male with history of hypertension has had an increase in his blood pressure recently has been placed onto an increased dose of hydrochlorothiazide. He developed right-sided facial weakness and dysarthric speech which was transient yesterday and appears persistent today. He is again today dehydrated on interrogation the inferior vena cava and saline is again administered. He does not resolve his symptoms. He refused hospitalization yesterday and today he is willing to go into the hospital. After Dr. Dr. Gibbs and she has graciously agreed to care for him in the hospital. Today he received 1 liter of saline and he is estimated to be 2-3 liter deficit on initial exam. Departure - Departure Disposition: 66 [facility] DC/Xfer Clinical Impression: Dehydration Cerebrovascular accident (CVA) Qualifiers: CVA mechanism: unspecified Qualified Code(s): I63.9 - Cerebral infarction, unspecified Hypertension Qualifiers: Hypertension type: unspecified Qualified Code(s): I10 - Essential (primary) hypertension Condition: Stable
[2019-01-16] MEDS ORDERED: SODIUM CHLORIDE 0.9% 1,000 ML IV ONE (10:09)
[2019-01-16 10:16] LABS: BASOPHILS # (AUTO) 0.1 10^3/uL (0.0-0.1); BASOPHILS % (AUTO) 0.6 %; EOSINOPHILS # (AUTO) 0.2 10^3/uL (0.0-0.7); EOSINOPHILS % (AUTO) 3.1 %; HGB - HEMOGLOBIN 14.9 g/dL (14.0-18.0); LYMPHOCYTES # (AUTO) 2.2 10^3/uL (1.5-3.5); LYMPHOCYTES % (AUTO) 26.7 %; MEAN CORPUSCULAR HEMOGLOBIN 32.1 pg (27.0-31.0); MEAN CORPUSCULAR HGB CONC 34.3 g/dL (32.0-36.0); MEAN CORPUSCULAR VOLUME 93.5 fL (80.0-94.0); MONOCYTES # (AUTO) 0.9 10^3/uL (0.0-1.0); MONOCYTES % (AUTO) 10.7 %; NEUTROPHILS # (AUTO) 4.8 10^3/uL (1.5-6.6); NEUTROPHILS % (AUTO) 58.9 %; PLT - PLATELET COUNT 226 10^3/uL (130-450); RED BLOOD COUNT 4.65 10^6/uL (4.70-6.10); RED CELL DISTRIBUTION WIDTH 13.4 % (12.0-15.0); WHITE BLOOD COUNT 8.1 x10^3/uL (4.8-10.8)
[2019-01-16 10:25] LABS: BILIRUBIN,URINE NEGATIVE (NEGATIVE); GLUCOSE, URINE (UA) NEGATIVE (NEGATIVE); KETONES,URINE (UA) NEGATIVE (NEGATIVE); LEUKOCYTE ESTERASE, URINE NEGATIVE (NEGATIVE); NITRITE,URINE NEGATIVE (NEGATIVE); OCCULT BLOOD,URINE NEGATIVE (NEGATIVE); PROTEIN,URINE NEGATIVE (NEGATIVE); UROBILINOGEN,URINE 0.2 (NORMAL) E.U./dL (NORMAL)
[2019-01-16 10:25] LABS: ALBUMIN 3.9 g/dL (3.2-5.5); ALBUMIN/GLOBULIN RATIO 1.2 (1.0-2.2); BILIRUBIN,TOTAL 0.9 mg/dL (0.2-1.0); CALCIUM 9.2 mg/dL (8.5-10.3); CREATININE 1.1 mg/dL (0.6-1.2); TOTAL PROTEIN 7.2 g/dL (6.7-8.2)
[2019-01-16 10:26] LABS: CLARITY,URINE CLEAR (CLEAR)
[2019-01-16] MEDS ORDERED: POTASSIUM BICARB 25 MEQ TABLET PO STA (10:40)
[2019-01-16] MEDS ORDERED: SODIUM CHLORIDE FLUSH 0.9% 10 ML SYRINGE IVP PRN (13:50)
[2019-01-16] MEDS ORDERED: ONDANSETRON 4 MG/2 ML VIAL IVP PRN (13:50)
[2019-01-16] MEDS ORDERED: ZOLPIDEM 5 MG TABLET PO PRN (13:50)
[2019-01-16] MEDS ORDERED: ACETAMINOPHEN 325 MG TABLET PO PRN (13:50)
[2019-01-16] MEDS ORDERED: hydrALAZINE INJ 20 MG/ML VIAL IVP PRN (13:58)
[2019-01-16] MEDS ORDERED: cloNIDine 0.1 MG TABLET PO PRN (14:00)
--- NOTE | 2019-01-16 14:06 | HISTORY & PHYSICAL EXAMINATION ---
Chief Complaint - Chief Complaint Chief Complaint: facial droop and dysarthric speech History of Present Illness - History of Present Illness HPI Comment/Other: 83-year-old white male with PMH significant for hypertension, diabetes with diet control, and hyperlipidemia who presents ER complain right facial droop and dysarthric speech. Pt was seen in this emergency department on yesterday with complaint of a right sided facial droop and dysarthric speech. He had workup in ER of CT of head and CTA of the head and neck which was not found to have large vessel occlusion and noncritical. Pt refused hospitalization at that time. Pt came back today and complain of similar symptoms, right facial droop and some of difficulty speech. He denies dysphagia, denies upper and lower extremity weakness or abnormal sensation. Upon examination, pt present slight weakness on right upper extremity and unsteady on the walk. pt is admitted for whole stroke workup. History - Past Medical History Cardiovascular: reports: Hypertension, High cholesterol Respiratory: reports: None Endocrine/Autoimmune: reports: Type 2 diabetes GI: reports: GERD, Other (Diverticulosis) : reports: Benign prostate hypertrophy, Nocturia, Frequency, Kidney stones HEENT: reports: None Psych: reports: Depression, Anxiety, Other (Paranoia (documented in PCP charts)) Musculoskeletal: reports: Gout, Chronic back pain (spinal stenosis), Other (Pain left hip; decided not to have surgery) Derm: reports: None MRSA Hx?: No - Past Surgical History General: reports: Colonoscopy (2008) Ortho: reports: Other (Left meniscus repair.) - Family & Social History Social History Notes: Patient was raised on the [facility] and went to college in [employer] [employer], he left school to join 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 Upon alf him and his moved to [facility]. They currently live in [place] and the patient is the primary (sole) caregiver to his who has progressively worsening dementia over the past 6-7 years. He dresses, bathes, and feeds his daily. She does not recognize him or her son anymore. He is home-bound to take care of her and pays someone to do the grocery shopping, it is causing him to miss doctor's appointments. His son lives nearby in [place] although is not able to assist regularly due to running his own businesses. Patient expresses concern about continuing to care for his at home and has been discussing the idea of finding placement for her. He enjoyed exercising, fly fishing, and fly fishing tying which is regrets he is unable to do at this time due to his caretaking responsibilities. - POLST Patient has POLST: No Meds/Allgy - Home Medications Home Medications: Ambulatory Orders Medication Instructions Recorded Confirmed Aspirin 81 mg PO DAILY 06/05/17 01/16/19 Lisinopril 40 mg PO DAILY 06/05/17 01/16/19 Clopidogrel [Plavix] 75 mg PO DAILY #10 tablet 01/15/19 01/16/19 Simvastatin 20 mg PO QPM 01/16/19 01/16/19 hydroCHLOROthiazide 50 mg PO DAILY 01/16/19 01/16/19 [Hydrochlorothiazide] - Allergies Allergies/Adverse Reactions: Allergies Allergy/AdvReac Type Severity Reaction Status Date / Time No Known Drug Allergies Allergy Verified 01/16/19 09:10 Review of Systems - Constitutional Constitutional: denies: Fatigue, Fever, Chills, Weakness, Poor appetite, Diaphoresis, Night sweats - Eyes Eyes: denies: Pain, Irritation, Amaurosis, Spots in vision, Field loss, Vision loss, Dipolpia - Ears, Nose & Throat Ears, Nose & Throat: denies: Ear pain, Hearing loss, Hearing aids, Tinnitus, Vertigo, Nasal pain, Nasal discharge, Nosebleeds, Nasal obstruction, Nasal congestion, Postnasal drainage, Dentures, Sore throat, Hoarseness, Mouth lesions, Bleeding gums - Cardiovascular Cariovascular: denies: Irregular heart rate, Palpitations, Chest pain, Edema, Lightheadedness, Syncope, Exertional dyspnea, Decr. exercise tolerance - Respiratory Respiratory: denies: Cough, Sputum production, Wheezing, Snoring, Hemoptysis, Orthopnea, SOB at rest, SOB with exertion - Gastrointestinal Gastrointestinal: denies: Abdominal pain, Abdominal distention, Constipation, Diarrhea, Change in bowel habits, Rectal bleeding, Black stools, Bloody stools, Nausea, Vomiting, Bile emesis, Rodríguez blood emesis - Genitourinary Genitourinary: denies: Dysuria, Frequency, Urgency, Hematuria, Incontinence, Flank pain, Nocturia, Urethral discharge - Musculoskeletal Musculoskeletal: denies: Muscle pain, Back pain, Muscle aches, Stiffness, Limited range of motion, Muscle weakness, Gout, Joint pain - Integumentary Integumentary: denies: Rash, Pruritis, Lesions, Dryness, Acne, Pigment changes, Nail changes - Neurological Neurological: reports: Focal weakness, Slurred speech. denies: General weakness, Headache, Dizziness, Numbness, Memory problems, Pre-existing deficit, Abnormal gait, Seizures, Incoordination - Psychiatric Psychiatric: denies: Depression, Anxiety, Suicidal, Delusions, Hallucinations, Homicidal - Endocrine Endocrine: denies: Polyuria, Polydypsia, Polyphagia, Intolerance to cold - Hematologic/Lymphatic Hematologic/Lymphatic: denies: Anemia, Bruising, Petechiae, Blood clots, Lymphadenopathy, Bleeding tendencies Prior Level of Functionality: pt is independent Exam - Vital Signs Vital Signs: Vital Signs x48h Temp Pulse Resp BP Pulse Ox 01/16/19 13:00 68 16 181/106 H 100 01/16/19 11:31 75 18 170/91 H 99 01/16/19 09:05 36.8 C 87 14 191/91 H 100 - Physical Exam General Appearance: positive: No acute distress, Alert. negative: Lethargic Eyes Bilateral: positive: Normal inspection, PERRL, No lid inflammation, Conjunctivae nml ENT: positive: ENT inspection nml, Pharynx nml, No signs of dehydration. negative: Purulent nasal drainage, Pharyngeal erythema, Oral lesions Neck: positive: Nml inspection, Thyroid nml, No JVD, Trachea midline. negative: Thyromegaly, Lymphadenopathy (R), Lymphadenopathy (L), Stiff neck, Swelling/bruising, Tracheal deviation Respiratory: positive: Chest non-tender, No respiratory distress, Breath sounds nml. negative: Wheezes, Rales, Rhonchi Cardiovascular: positive: Regular rate & rhythm, No murmur, No gallop. negative: Irregularly irregular, Extrasystoles, Tachycardia, Bradycardia, JVD present, Systolic murmur, Diastolic murmur Peripheral Pulses: positive: 2+ Abdomen: positive: Non-tender, No organomegaly, Nml bowel sounds, No distention. negative: Tenderness, Guarding, Rebound Back: positive: Nml inspection. negative: CVA tenderness (R), CVA tenderness (L) Skin: positive: Color nml, No rash, Warm, Dry. negative: Cyanosis, Diaphoresis, Pallor Extremities: positive: Non-tender, Nml appearance. negative: Calf tenderness, Joint swelling, Sandra's sign/cords Neurologic/Psychiatric: positive: Oriented x3, Sensation nml, Mood/affect nml, Weakness, Facial droop, Slurred/abnml speech. negative: Sensory loss, Depressed mood/affect Sepsis Event Note (H) - Evaluation Current Stage of Sepsis: Ruled out Conclusion/Plan - Problem List (1) Cerebrovascular accident (CVA) Conclusion/Plan: pt present persisting facial droop, dysarthric speech, right upper extremity mild weakness, and unsteady on the walk, clinically indicate pt has stroke MRI and ECHO pt was prescribed Plavix on yesterday, will continue Lipitor 80 mg daily PT/OT/ ST evaluation and treatment Qualifiers: CVA mechanism: unspecified Qualified Code(s): I63.9 - Cerebral infarction, unspecified (2) Hypertension Conclusion/Plan: hold home BP meds, allow BP rise. PRN hydralazine and Clonidine. Qualifiers: Hypertension type: unspecified Qualified Code(s): I10 - Essential (primary) hypertension (3) Hyperlipidemia Conclusion/Plan: test Lipid panel Lipitor 80 mg daily (4) Dehydration Conclusion/Plan: pt has slight elevated creatinine, clinic present dehydration IVF of NS vital and lab monitor (5) Do not intubate, cardiopulmonary resuscitation (CPR)-only code status Conclusion/Plan: pt request DNR - Lab Results Fish Bones: 01/16/19 09:17 01/16/19 09:17 Core Measures - Anticipated LOS I expect patient to be DC'd or transferred within 96 hours.: Yes - DVT/VTE - Prophylaxis VTE/DVT Device ordered at admit?: Yes VTE/DVT Prophylaxis med ordered at admit?: Yes
[2019-01-16] MEDS: SODIUM CHLORIDE 0.9% 1,000 ML IV SCH ×2 (14:28→22:46)
[2019-01-16] MEDS: SODIUM CHLORIDE FLUSH 0.9% 10 ML SYRINGE IVP SCH (17:22)
[2019-01-16] MEDS: FAMOTIDINE 20 MG TABLET PO SCH (20:24)
[2019-01-16] MEDS ORDERED: ATORVASTATIN 40 MG TABLET PO SCH (21:00)
[2019-01-17] MEDS: SODIUM CHLORIDE FLUSH 0.9% 10 ML SYRINGE IVP SCH ×2 (03:28→08:26)
[2019-01-17 05:23] LABS: BASOPHILS % (AUTO) 0.6 %; EOSINOPHILS # (AUTO) 0.3 10^3/uL (0.0-0.7); EOSINOPHILS % (AUTO) 3.1 %; HGB - HEMOGLOBIN 13.7 g/dL (14.0-18.0); LYMPHOCYTES # (AUTO) 2.4 10^3/uL (1.5-3.5); LYMPHOCYTES % (AUTO) 28.5 %; MEAN CORPUSCULAR HEMOGLOBIN 32.7 pg (27.0-31.0); MEAN CORPUSCULAR HGB CONC 34.8 g/dL (32.0-36.0); MEAN PLATELET VOLUME 7.6 fL (7.4-11.4); MONOCYTES # (AUTO) 0.9 10^3/uL (0.0-1.0); MONOCYTES % (AUTO) 11.1 %; NEUTROPHILS # (AUTO) 4.7 10^3/uL (1.5-6.6); NEUTROPHILS % (AUTO) 56.7 %; PLT - PLATELET COUNT 198 10^3/uL (130-450); RED BLOOD COUNT 4.21 10^6/uL (4.70-6.10); RED CELL DISTRIBUTION WIDTH 13.2 % (12.0-15.0); WHITE BLOOD COUNT 8.3 x10^3/uL (4.8-10.8)
[2019-01-17 05:39] LABS: CHOL/HDL RATIO 2.3 (<5.0); CHOLESTEROL 107 mg/dL; HDL CHOLESTEROL 47 mg/dL; LDL CHOLESTEROL,CALCULATED 49 mg/dL; VLDL CHOLESTEROL 11 mg/dL
[2019-01-17 05:42] LABS: ALBUMIN 3.3 g/dL (3.2-5.5); ALBUMIN/GLOBULIN RATIO 1.2 (1.0-2.2); BILIRUBIN,TOTAL 1.2 mg/dL (0.2-1.0); CALCIUM 8.3 mg/dL (8.5-10.3); MAGNESIUM 1.7 mg/dL (1.7-2.8); TOTAL PROTEIN 6.1 g/dL (6.7-8.2)
[2019-01-17] MEDS: FAMOTIDINE 20 MG TABLET PO SCH (08:25)
[2019-01-17] MEDS ORDERED: ENOXAPARIN 40 MG/0.4 ML SYRINGE SUBQ SCH (09:00)
[2019-01-17] MEDS ORDERED: POLYETHYLENE GLYCOL 3350 17 GM PACKET PO SCH (09:00)
[2019-01-17] MEDS ORDERED: CLOPIDOGREL 75 MG TABLET PO SCH (09:00)
[2019-01-17] MEDS ORDERED: ASPIRIN CHEW 81 MG TABLET PO SCH (09:00)
--- NOTE | 2019-01-17 12:52 | MRI Report ---
Reason: stroke Procedure Date: 01/17/2019 Accession Number: [id number] / [id number] Procedure: MRI - Brain W/O CPT Code: FULL RESULT: EXAM: MRI BRAIN WITHOUT CONTRAST EXAM DATE: 01/17/2019 12:00 PM. CLINICAL HISTORY: Stroke. Right facial droop. COMPARISON: MRI brain without contrast 02/20/2012 12:24 PM Head without stroke protocol 01/15/2019 11:56 AM Head angio 01/15/2019 11:56 AM. TECHNIQUE: Multiplanar, multisequence T1-weighted and fluid-sensitive MR sequences of the brain were performed. Sequences optimized for routine evaluation. Other: None. IV Contrast: None. FINDINGS: Brain Volume: Normal for age. Parenchyma/Dura: 13 mm wedge-shaped focus of restricted diffusion is seen in the posterior left putamen. Patchy extension through the posterior limb of the internal capsule to the posterior body of the left caudate nucleus is seen. Associated increased T2/FLAIR signal is noted. No hemorrhage is present. Mild confluent periventricular with minimal scattered punctate deep and subcortical white matter T2/FLAIR bright signal is seen in the cerebral hemispheres and to a lesser extent brainstem. No intracranial mass or hemorrhage is seen. Ventricles/Cisterns: Mild age-related prominence to the ventricular system and overlying cortical sulci. No hydrocephalus. No abnormal extra-axial fluid collection or hemorrhage. Orbits: Symmetric and unremarkable. Sella Turcica: The pituitary gland, cavernous sinuses, suprasellar cistern and optic chiasm are unremarkable. IAC: Symmetric and unremarkable. Vasculature: Normal signal flow void is seen in the major arterial structures at the skull base. Sinuses: Diffuse opacification of left mastoid air cells is once again evident. Right mastoid air cells and visualized paranasal sinuses are clear. Bones: No focal pathologic appearing marrow signal changes. Other: None. IMPRESSION: 1. Acute infarct in the left posterior putamen. Minimal patchy extension through the posterior limb of the internal capsule to the posterior body of the caudate nucleus is seen. This is consistent with lacunar infarct in lateral lenticulostriate arterial supply off the M1 segment of the MCA. 2. Mild white matter T2/FLAIR bright signal seen in the cerebral hemispheres and to a lesser extent brainstem. This is nonspecific. This is typically secondary to small vessel ischemic change. 3. Diffuse opacification of left mastoid air cells once again evident. RADIA The call report notification system was initiated by Dr. Kenny Grullon at 12:40 PM on 01/17/2019. Critical test: The above call report findings were discussed with referring physician, Dr. Ruiz, by Dr. Kenny Grullon at 12:46 PM on 01/17/2019.
--- NOTE | 2019-01-17 13:16 | Discharge Plan ---
Discharge Plan Disposition: Home, Self Care Condition: Poor Prescriptions: Atorvastatin [Lipitor] 80 mg PO QPM #20 tablet Diet: Regular Activity Restrictions: Activity as Tolerated Shower Restrictions: No (fall precaution, caregiver closely monitor) Instruction Topics: Atorvastatin tablets, Clopidogrel Bisulfate Oral tablet, Stroke Taking Meds, Stroke Risk Factors, TIA Surgery, Stroke Sx Additional Instructions or Follow Up instructions: You may followup your PCP in one week, followup neurologist as out-pt. Should your symptoms return or worsen, you may present ER, call 911, or your PCP for help. No Smoking: If you smoke, Please STOP! Call for help. Follow-up with: Susan Becker MD [Primary Care Provider] -
--- NOTE | 2019-01-17 13:26 | DISCHARGE SUMMARY ---
Discharge Summary Discharge Date: 01/17/19 Discharging Provider: COULTER Primary Care Provider: Dr. Becker Condition at Discharge: Poor Discharge Disposition: 01 Home, Self Care Discharge Facility Name: home - DIAGNOSES Admission Diagnoses: (1) Cerebrovascular accident (CVA) (2) Hypertension (3) Hyperlipidemia (4) Dehydration Discharge Diagnoses with Status of Each Condition: 1) Cerebrovascular accident (CVA) MRI reveal pt has acute left infarction. Pt still present right facial droop but speech is improved, no difficult to speech and understand. Pt does not present other focal neurology deficit beside of facial droop. PT/OT had evaluation and treatment for pt, and recommend pt can be d/c home. discuss the image results of MRI and CTA of head with pt and pt's son. advise pt followup PCP and neurologist, answer all their questions discuss pt about if he can drive. advise pt no driving for at least two weeks until he was assessed by his PCP or neurologist (2) Hypertension resume home meds, followup PCP management (3) Hyperlipidemia increase pt's lipid to 80mg daily per stroke recommendation (4) Dehydration resolved - HPI History of Present Illness: 83-year-old white male with PMH significant for hypertension, diabetes with diet control, and hyperlipidemia who presents ER complain right facial droop and dysarthric speech. Pt was seen in this emergency department on yesterday with complaint of a right sided facial droop and dysarthric speech. He had workup in ER of CT of head and CTA of the head and neck which was not found to have large vessel occlusion and noncritical. Pt refused hospitalization at that time. Pt came back today and complain of similar and persisting symptoms, right facial droop and some of difficulty speech. He denies dysphagia, denies upper and lower extremity weakness or abnormal sensation. Upon examination, pt present slight weakness on right upper extremity and unsteady on the walk. pt is admitted for whole stroke workup. - HOSPITAL COURSE Hospital Course: pt was admitted for further evaluation and treatment of persisting right facial droop and slight dysarthria. Pt had ECHO and MRI. ECHO reveals unremarkable. MRI reveals pt had left brain infarction. Pt still present right facial droop but speech is improved, and he can speak, and understand other's speech. pt does not have other focal neurological deficit. Pt and PT evaluate and treated pt. I discussed all image study results with pt and his son, and answer all their questions. pt strongly requested to be discharged today. pt is advised to continue his home medications, include Plavix, and increase dosage of his Lipitor to 80 mg daily - ALLERGIES Allergies/Adverse Reactions: Allergies Allergy/AdvReac Type Severity Reaction Status Date / Time No Known Drug Allergies Allergy Verified 01/16/19 09:10 - MEDICATIONS Home Medications: Ambulatory Orders Medication Instructions Recorded Confirmed RX: Aspirin 81 mg PO DAILY 06/05/17 01/16/19 RX: Lisinopril 40 mg PO DAILY 06/05/17 01/16/19 RX: Clopidogrel [Plavix] 75 mg PO DAILY #10 tablet 01/15/19 01/16/19 RX: hydroCHLOROthiazide 50 mg PO DAILY 01/16/19 01/16/19 [Hydrochlorothiazide] RX: Atorvastatin [Lipitor] 80 mg PO QPM #20 tablet 01/17/19 - PHYSICAL EXAM AT DISCHARGE General Appearance: positive: No acute distress, Alert. negative: Lethargic Eyes Bilateral: positive: Normal inspection, PERRL, No lid inflammation, Conjunctivae nml ENT: positive: ENT inspection nml, Pharynx nml, No signs of dehydration. negative: Purulent nasal drainage, Pharyngeal erythema, Oral lesions Neck: positive: Nml inspection, Thyroid nml, No JVD, Trachea midline. negative: Thyromegaly, Stiff neck, Swelling/bruising, Tracheal deviation Respiratory: positive: Chest non-tender, No respiratory distress, Breath sounds nml. negative: Wheezes, Rales, Rhonchi Cardiovascular: positive: Regular rate & rhythm, No murmur, No gallop. negative: Irregularly irregular, Extrasystoles, Tachycardia, Bradycardia, PMI displaced laterally, Systolic murmur, Diastolic murmur Peripheral Pulses: positive: 2+ Abdomen: positive: Non-tender, No organomegaly, Nml bowel sounds, No distention. negative: Tenderness, Guarding, Rebound Back: positive: Nml inspection. negative: CVA tenderness (R), CVA tenderness (L) Skin: positive: Color nml, No rash, Warm, Dry. negative: Cyanosis, Diaphoresis, Pallor Extremities: positive: Non-tender, Full ROM, Nml appearance. negative: Calf tenderness, Joint swelling, Sandra's sign/cords Neurologic/Psychiatric: positive: Oriented x3, Motor nml, Sensation nml, Mood/affect nml, Facial droop. negative: Disoriented to person, Disoriented to place, Disoriented to time, Weakness, Sensory loss, Slurred/abnml speech, Depressed mood/affect - LABS Result Diagrams: 01/17/19 05:05 01/17/19 05:05 - SEPSIS Current Stage of Sepsis: Ruled out - FOLLOW UP Follow Up: You may followup your PCP in one week, followup neurologist as out-pt. Should your symptoms return or worsen, you may present ER, call 911, or your PCP for help. - TIME SPENT Time Spent in Discharge (Minutes): 55
[2019-01-17 14:33] VITALS: BP 184/95
== END 2019-01-17 13:40 | disposition home or self-care (01) | DRG 66 ==
LOC: ED 09:05 → MS2 13:50
PROVIDERS: ADMIT Nurse Practitioner Gerontology; ATTEND Nurse Practitioner Gerontology
DX: I63.9 Cerebral infarction, unspecified (principal); G81.91 Hemiplegia, unspecified affecting right dominant side; R47.1 Dysarthria and anarthria; R29.810 Facial weakness; G83.21 Monoplegia of upper limb affecting right dominant side; R27.0 Ataxia, unspecified; R29.703 NIHSS score 3; E78.00 Pure hypercholesterolemia, unspecified; E86.0 Dehydration; I10 Essential (primary) hypertension; E78.5 Hyperlipidemia, unspecified; E11.9 Type 2 diabetes mellitus without complications; N40.1 Benign prostatic hyperplasia with lower urinary tract symptoms; R35.0 Frequency of micturition; R35.1 Nocturia; K21.9 Gastro-esophageal reflux disease without esophagitis; K57.90 Diverticulosis of intestine, part unspecified, without perforation or abscess without bleeding; G89.29 Other chronic pain; M54.9 Dorsalgia, unspecified; M48.00 Spinal stenosis, site unspecified; M25.552 Pain in left hip; M10.9 Gout, unspecified; Z66 Do not resuscitate; Z79.82 Long term (current) use of aspirin; Z87.891 Personal history of nicotine dependence; Z87.442 Personal history of urinary calculi
CPT/HCPCS: 36415; 70551; 80053; 80061; 81001; 81003; 83690; 83721; 83735; 84484; 85025; 87086; 93005; 93306; 96360; 99284

== ENCOUNTER 2019-02-01 15:00 | Outpatient (CLI) | payer MEDICARE, OTHER | END 2019-02-01 23:59 | LOC: LAB.WCP 15:00 | PROVIDERS: ATTEND Family Medicine | DX: I10 Essential (primary) hypertension (principal); I63.9 Cerebral infarction, unspecified | CPT/HCPCS: 83835 ==

== ENCOUNTER 2019-02-05 12:51 | Outpatient (CLI) | payer MEDICARE, OTHER ==
--- NOTE | 2019-02-05 16:27 | Ultrasound Report ---
Reason: HYPERTENSION,BENIGN ESSENTIAL,LABILE Procedure Date: 02/05/2019 Accession Number: [id number] / [id number] Procedure: US - Retroperitoneal CPT Code: FULL RESULT: EXAM: RENAL ULTRASOUND EXAM DATE: 02/05/2019 02:04 PM. CLINICAL HISTORY: Hypertension, benign essential, labile. COMPARISON: None. TECHNIQUE: Real-time scanning was performed with static images obtained. FINDINGS: Right Kidney: 10.6 x 5.4 x 5.6 cm. Mildly increased cortical echotexture. 2.2 cm mid pole simple cyst. No solid masses. No appreciable stone or hydronephrosis. Left Kidney: 10.5 x 4.6 x 5.2 cm. Mildly increased cortical echotexture. Thin-walled 4.7 x 2.7 x 3.5 cm upper pole cyst with thin internal septation. No appreciable stone or hydronephrosis. Bladder: Bilateral jets seen. The prevoid bladder volume was 215 cc. The postvoid bladder volume was 198 cc. Other: Enlarged prostate gland measuring 5.9 x 6.6 x 5.5 cm. Estimated volume 114 cc. IMPRESSION: 1. Symmetric increase in cortical echotexture may indicate underlying medical renal disease. 2. No appreciable stone or hydronephrosis. 3. Enlarged prostate gland. 4. Large postvoiding residual possibly due to prostatic enlargement. RADIA
== END 2019-02-05 12:52 | disposition home or self-care (01) ==
LOC: DI 12:51
PROVIDERS: ATTEND Family Medicine
DX: I10 Essential (primary) hypertension (principal); N40.0 Benign prostatic hyperplasia without lower urinary tract symptoms
CPT/HCPCS: 76770

== ENCOUNTER 2019-03-13 08:10 | Outpatient (CLI) | payer MEDICARE, OTHER ==
--- NOTE | 2019-03-13 11:12 | Ultrasound Report ---
Reason: HYPERTENSION,BENIGN ESSENTIAL,LABILE Procedure Date: 03/13/2019 Accession Number: [id number] / [id number] Procedure: US - Arterial Visceral Complete CPT Code: FULL RESULT: EXAM: RENAL ARTERY DOPPLER ULTRASOUND EXAM DATE: 03/13/2019 09:30 AM. CLINICAL HISTORY: Hypertension, benign essential, labile. COMPARISON: None. TECHNIQUE: Real-time sonographic vascular imaging was performed by the mixer runner through the renal arterial system with a linear transducer utilizing color-flow, Doppler flow, and spectral analysis. Multiple parts representative static images were saved for review. FINDINGS: Bilateral renal artery duplex is performed. The study is somewhat limited by poor acoustic windows. Within the right kidney resistive indices are relatively low and there is questionably mild delay in upstroke, evaluation limited by Doppler signal. At the same time, there are borderline elevated renal artery to aortic peak systolic velocities. Investigation of the left kidney is normal. Redemonstration of renal cysts, simple appearance. Right Kidney: 10.5 x 5.5 x 5.2 cm. Echotexture: Increased cortical echogenicity. Right Segmental Artery: Upper pole: PSV 12.4 cm/sec, RI 0.65. Mid pole: PSV 20.0 cm/sec, RI 0.60. Lower pole: PSV 19.0 cm/sec, RI 0.63. Right Renal Artery: Origin: PSV 134 cm/sec, RA/AO 3.2. Proximal: PSV 122 cm/sec, RA/AO 2.9. Mid: PSV 151 cm/sec, RA/AO 3.6. Distal: PSV 175 cm/sec, RA/AO 4.2. Aorta PSV: 42.0 cm/sec. RRV Patent: Yes. Left Kidney: 10.3 x 4.9 x 4.6 cm. Echotexture: Increased cortical echogenicity. Left Segmental Artery: Upper pole: PSV 18 cm/sec, RI 0.68. Mid pole: PSV 19 cm/sec, RI 0.70. Lower pole: PSV 12.4 cm/sec, RI 0.66. Left Renal Artery: Origin: PSV 76 cm/sec, RA/AO 1.81. Proximal: PSV 82 cm/sec, RA/AO 1.95. Mid: PSV 127 cm/sec, RA/AO 3.02. Distal: Not seen. LRV Patent: Yes. IMPRESSION: Limited study with possible mild right renal artery stenosis. Recommendation: CTA CRITERIA FOR CLASSIFICATION OF RENAL ARTERY (RA) DISEASE BY DUPLEX SCANNING: RA Diameter Reduction/ RA PSV/ RAR: Normal, < 180 cm/sec, < 3.5 < 60%, >= 180 cm/sec, < 3.5 >= 60%, >= 180 cm/sec, >= 3.5 Total Occlusion: Undetectable; Not applicable RADIA
== END 2019-03-13 08:11 | disposition home or self-care (01) ==
LOC: DI 08:10
PROVIDERS: ATTEND Family Medicine
DX: I10 Essential (primary) hypertension (principal)
CPT/HCPCS: 93975

== ENCOUNTER 2019-03-14 15:36 | Outpatient (CLI) | payer MEDICARE, OTHER ==
[2019-03-14 19:55] LABS: HB2 TOTAL 15.6 g/dL; HEMOGLOBIN A1C 0.66 g/dL
== END 2019-03-14 23:59 | disposition home or self-care (01) ==
LOC: LAB.WCP 15:36
PROVIDERS: ATTEND Family Medicine
DX: E11.9 Type 2 diabetes mellitus without complications (principal); Z12.5 Encounter for screening for malignant neoplasm of prostate
CPT/HCPCS: 36415; 83036; G0103; 84153

== ENCOUNTER 2019-11-25 11:30 | Outpatient (CLI) | payer MEDICARE, OTHER ==
--- NOTE | 2019-11-25 15:01 | XRAY Report ---
Reason: COSTOCHONDRITIS ACUTE Procedure Date: 11/25/2019 Accession Number: [id number] / [id number] Procedure: WCP - Chest 2 View X-Ray CPT Code: 60630 Final Report FULL RESULT: EXAM: CHEST RADIOGRAPHY EXAM DATE: 11/25/2019 11:30 AM. CLINICAL HISTORY: COSTOCHONDRITIS ACUTE. Pain. COMPARISON: CHEST 1 VIEW 06/05/2017 12:43 AM. TECHNIQUE: 2 views. FINDINGS: Lungs/Pleura: Clear. No effusion or pneumothorax. Mediastinum: Heart and mediastinal contours are unremarkable. Upper lobe vessels not distended. Other: Degenerative changes. IMPRESSION: No acute disease. RADIA
== END 2019-11-25 23:59 | disposition home or self-care (01) ==
LOC: DI.WCP 11:30
PROVIDERS: ATTEND Physician Assistant Medical
DX: M94.0 Chondrocostal junction syndrome [Tietze] (principal)
CPT/HCPCS: 71046

== ENCOUNTER 2020-01-14 07:36 | Outpatient (CLI) | payer MEDICARE, OTHER ==
[2020-01-14 12:48] LABS: ALBUMIN 3.8 g/dL (3.2-5.5); ALKALINE PHOSPHATASE 68 IU/L (42-121); ALT ALANINE AMINOTRANSFERASE 26 IU/L (10-60); AST ASPARTATE AMINOTRANSFERASE 24 IU/L (10-42); BILIRUBIN,TOTAL 0.9 mg/dL (0.2-1.0); BUN - BLOOD UREA NITROGEN 23 mg/dL (6-20); CARBON DIOXIDE - CO2 29 mmol/L (21-32); CHLORIDE 106 mmol/L (101-111); CHOLESTEROL 109 mg/dL; GFR - MDRD 71 (>89); GLUCOSE 128 mg/dL (70-100); HDL CHOLESTEROL 55 mg/dL; LDL CHOLESTEROL,CALCULATED 38 mg/dL; LDL/HDL RATIO 0.7 (<3.6); SODIUM 140 mmol/L (135-145); TOTAL PROTEIN 7.6 g/dL (6.7-8.2); VLDL CHOLESTEROL 16 mg/dL
[2020-01-14 13:14] LABS: HB2 TOTAL 13.9 g/dL; HEMOGLOBIN A1C 0.63 g/dL; HEMOGLOBIN A1C % 6.3 % (4.6-6.2)
== END 2020-01-14 23:59 | disposition home or self-care (01) ==
LOC: LAB.WCP 07:36
PROVIDERS: ATTEND Physician Assistant Medical
DX: E78.5 Hyperlipidemia, unspecified (principal); E11.9 Type 2 diabetes mellitus without complications; R79.89 Other specified abnormal findings of blood chemistry
CPT/HCPCS: 36415; 80053; 80061; 83036; 83721; 84443

== ENCOUNTER 2020-02-10 08:00 | Outpatient (CLI) | payer MEDICARE, OTHER | END 2020-02-10 23:59 | disposition home or self-care (01) | LOC: LAB.WCP 08:00 | PROVIDERS: ATTEND Physician Assistant Medical | DX: R31.9 Hematuria, unspecified (principal) | CPT/HCPCS: 81002 ==

== ENCOUNTER 2020-02-10 08:00 | Outpatient (CLI) | payer MEDICARE, OTHER ==
[2020-02-10 12:15] LABS: BILIRUBIN,URINE NEGATIVE (NEGATIVE); GLUCOSE, URINE (UA) NEGATIVE (NEGATIVE); KETONES,URINE (UA) NEGATIVE (NEGATIVE); LEUKOCYTE ESTERASE, URINE NEGATIVE (NEGATIVE); NITRITE,URINE NEGATIVE (NEGATIVE); OCCULT BLOOD,URINE SMALL (NEGATIVE); PROTEIN,URINE NEGATIVE (NEGATIVE); UROBILINOGEN,URINE 0.2 (NORMAL) E.U./dL (NORMAL)
[2020-02-10 12:31] LABS: BACTERIA,URINE Rare /HPF (None Seen); CLARITY,URINE CLEAR (CLEAR); SQUAMOUS EPITHELIAL CELL,UR NONE SEEN (<= Few)
== END 2020-02-10 23:59 | disposition home or self-care (01) ==
LOC: LAB.R 08:00
PROVIDERS: ATTEND Physician Assistant Medical
DX: R31.9 Hematuria, unspecified (principal)
CPT/HCPCS: 81001; 87086

== ENCOUNTER 2020-02-17 08:12 | Outpatient (CLI) | payer MEDICARE, OTHER ==
--- NOTE | 2020-02-17 10:07 | Ultrasound Report ---
Reason: HEMATURIA Procedure Date: 02/17/2020 Accession Number: [id number] / [id number] Procedure: US - Retroperitoneal CPT Code: Final Report FULL RESULT: EXAM: RENAL ULTRASOUND EXAM DATE: 02/17/2020 09:53 AM. CLINICAL HISTORY: Haematuria. COMPARISON: RETROPERITONEAL 02/05/2019 1:08 PM. TECHNIQUE: Real-time scanning was performed with static images obtained. FINDINGS: Right Kidney: 11.1 x 5.6 x 4.0 cm. No calculi or hydronephrosis evident. At multiple simple cysts are identified, the largest measuring 2.7 cm, previously 2.2 cm. The cortex appears mildly thinned. No solid masses identified. Left Kidney: 10.9 x 5.4 x 5.4 cm. No calculi or hydronephrosis evident. An upper pole finally septated cyst measures 7.3 x 4.5 x 6.2 cm, previously 4.7 cm. No solid masses identified. The cortex is mildly thinned. Bladder: Bilateral jets seen. The prevoid bladder volume was 328 cc. The postvoid bladder volume was 192 cc. There is non-mobile echogenic focus adjacent to the right UVJ measuring 1.7 x 0.9 x 1.2 cm and could represent non-mobile debris versus mass lesion. Other: The prostate is enlarged measuring 6.0 x 5.9 x 6.6 cm. IMPRESSION: 1. Newly identified 1.7 cm non-mobile echogenic mural focus adjacent to right UVJ concerning for bladder wall mass and could explain the hematuria. Less likely it could represent non-mobile echogenic debris such as blood clot. Urological consult and further evaluation with cystoscopy and/or contrast-enhanced cross-sectional imaging suggested. 2. Large post void bladder residual of 192 cc, likely secondary to prostatic hypertrophy. 3. Large septated left upper pole renal cyst has increased in size in the interval from 4.7 to 7.3 cm. 4. Multiple right renal simple cysts measuring up to 2.7 cm, increased from 2.2 cm. 5. No calculi or hydronephrosis evident. RADIA
== END 2020-02-17 08:13 | disposition home or self-care (01) ==
LOC: DI 08:12
PROVIDERS: ATTEND Physician Assistant Medical
DX: R31.9 Hematuria, unspecified (principal); N40.0 Benign prostatic hyperplasia without lower urinary tract symptoms; Q61.02 Congenital multiple renal cysts
CPT/HCPCS: 76770

== ENCOUNTER 2020-03-19 11:31 | Outpatient (CLI) | payer MEDICARE, OTHER | END 2020-03-19 11:32 | disposition EMS.NT | LOC: EMS 11:31 | PROVIDERS: ATTEND Surgery | DX: M79.602 Pain in left arm (principal) ==

== ENCOUNTER 2020-03-19 11:35 | Emergency (ER) | payer MEDICARE, OTHER ==
--- NOTE | 2020-03-19 11:41 | ED Physician Documentation ---
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 Pt states for the past two nights as he laid down to sleep he had 2-3 minutes of achiness in the left shoulder into the upper arm. It goes away on its own and he goes to sleep w/o difficulty. He has no pain during the day. He has no associated sx w/ the pain such as cough or uri sx, chest pain, dyspnea, abd pain, n/v, diaphoresis. He remains active during the day time and walks on his treadmill most days of the week and has not had pain w/ this. He denies any new strenuous activity or shoulder injury. He has been practicing his fly fishing cast in his yard recently, but no other new activity. Has not attempted meds for this. Feels well now and has no pain. Pt last saw a spd manager in December of 2018, has hx/o palpitations and some atypical cp in the past but spd manager evaluated and felt no provocative testing indicated.) Review of Systems Constitutional: reports: Reviewed and negative Eyes: reports: Reviewed and negative Ears: reports: Reviewed and negative Nose: reports: Reviewed and negative Throat: reports: Reviewed and negative Cardiac: reports: Reviewed and negative Respiratory: reports: Reviewed and negative GI: reports: Reviewed and negative : reports: Reviewed and negative Skin: reports: Reviewed and negative Musculoskeletal: reports: Extremity pain (left shoulder/arm), Joint pain. denies: Extremity swelling, Joint swelling Neurologic: reports: Reviewed and negative PD PAST MEDICAL HISTORY - Past Medical History Cardiovascular: Hypertension, High cholesterol Respiratory: None Neuro: TIA Endocrine/Autoimmune: Type 2 diabetes GI: GERD, Other (Diverticulosis) : Benign prostate hypertrophy, Nocturia, Frequency, Kidney stones HEENT: None Psych: Depression, Anxiety, Other Musculoskeletal: Gout, Chronic back pain, Other Derm: None - Past Surgical History Past Surgical History: No General: Colonoscopy Ortho: Other - Present Medications Home Medications: Ambulatory Orders Medication Instructions Recorded Confirmed Aspirin 81 mg PO DAILY 06/05/17 01/16/19 lisinopriL [Lisinopril] 40 mg PO DAILY 06/05/17 01/16/19 Clopidogrel [Plavix] 75 mg PO DAILY #10 tablet 01/15/19 01/16/19 hydroCHLOROthiazide 50 mg PO DAILY 01/16/19 01/16/19 [Hydrochlorothiazide] Atorvastatin [Lipitor] 80 mg PO QPM #20 tablet 01/17/19 - Allergies Allergies/Adverse Reactions: Allergies Allergy/AdvReac Type Severity Reaction Status Date / Time No Known Drug Allergies Allergy Verified 03/19/20 11:49 - Social History Does the pt smoke?: No Smoking Status: Former smoker Does the pt drink ETOH?: No Does the pt have substance abuse?: No - Immunizations Immunizations are current?: Yes - POLST Patient has POLST: No PD ED PE NORMAL - Vitals Vital signs reviewed: Yes - General General: Alert and oriented X 3, No acute distress, Well developed/nourished - HEENT HEENT: Atraumatic, Moist mucous membranes - Neck Neck: Supple, no meningeal sign, No adenopathy, No JVD - Cardiac Cardiac: RRR, No murmur, No gallop, No rub, Strong equal pulses - Respiratory Respiratory: No respiratory distress, Clear bilaterally - Abdomen Abdomen: Normal bowel sounds, Non tender, Non distended - Back Back: No CVA TTP, No spinal TTP - Derm Derm: Normal color, Warm and dry, No rash - Extremities Extremities: No deformity, No tenderness to palpate, Normal ROM s pain, No edema, No calf tenderness / cord - Neuro Neuro: Alert and oriented X 3 Eye Opening: Spontaneous Motor: Obeys Commands Verbal: Confused GCS Score: 14 - Psych Psych: Normal mood, Normal affect Results - Vitals Vitals: Vital Signs - 24 hr 03/19/20 03/19/20 03/19/20 11:37 12:00 12:41 Temperature 36.4 C L 98.4 C H Heart Rate 78 77 74 Respiratory 16 22 24 Rate Blood Pressure 157/98 H 157/98 H 141/99 H O2 Saturation 98 97 96 Oxygen O2 Source Room air - EKG (time done) 12pm Rhythm: NSR [place]: Normal Intervals: Normal IA QRS: Normal Ischemia: Non specific changes - Labs Labs: Laboratory Tests 03/19/20 03/19/20 03/19/20 11:50 12:05 12:05 WBC 8.6 RBC 4.70 Hgb 15.3 Hct 45.6 MCV 97.0 H MCH 32.6 H MCHC 33.6 RDW 12.7 Plt Count 254 MPV 10.6 Neut # (Auto) 5.7 Lymph # (Auto) 1.8 [place] # (Auto) 0.7 Eos # (Auto) 0.3 Baso # (Auto) 0.1 Absolute Nucleated RBC 0.00 Nucleated RBC % 0.0 Sodium 140 Potassium 4.0 Chloride 103 Carbon Dioxide 29 Anion Gap 8.0 BUN 24 H Creatinine 1.1 Estimated GFR (MDRD) 64 L Glucose 124 H Calcium 8.8 Troponin I High Sens 5.0 PD MEDICAL DECISION MAKING - ED course Complexity details: reviewed results, re-evaluated patient, considered differential, d/w patient ED course: Pt presented with a few minutes of left shoulder and upper arm pain at night for the last few nights. He was evaluated by PCP and advised to come to the ER for a troponin, though low suspicion for ACS/anginal equivalent. His trop is negative and his EKG is NSR w/o acute st/t changes. His chest xray is normal. It is reassuring that patient has no pain with daily treadmill walks that he does. He has been doing some fly fishing casting recently which potentially are causiing some achiness in left shoulder. He has full left shoulder ROM and no acute signs of impingement or rotator cuff injury. ACS unlikely and given sx onset was 2 days ago, will not hold for 2nd troponin. Departure - Departure Disposition: 01 Home, Self Care Clinical Impression: Atypical chest pain Condition: Good Instructions: ED Chest Pain NonCardiac Comments: We evaluated you for chest pain today. We checked a lab that helps us know if there may be damage or stress to the heart and this was negative. Your EKG (heart rhythm) does not show any sign of acute heart damage. Your chest xray was also normal. I suspect you may have some achiness in the shoulder due to activity and you may consider taking a tylenol or using a warm compress before bed. If your symptoms worsen or become more persistent or are accompanied by chest pain, dyspnea, sweating, nausea, or other new symptoms, please return to the ER. Please follow up with your primary doctor in the next 1-2 weeks. Discharge Date/Time: 03/19/20 12:41
[2020-03-19 12:23] LABS: BASOPHILS # (AUTO) 0.1 10^3/uL (0.0-0.1); BASOPHILS % (AUTO) 0.8 %; EOSINOPHILS # (AUTO) 0.3 10^3/uL (0.0-0.7); EOSINOPHILS % (AUTO) 3.8 %; HGB - HEMOGLOBIN 15.3 g/dL (14.0-18.0); LYMPHOCYTES # (AUTO) 1.8 10^3/uL (1.5-3.5); LYMPHOCYTES % (AUTO) 20.7 %; MEAN CORPUSCULAR HEMOGLOBIN 32.6 pg (27.0-31.0); MEAN CORPUSCULAR HGB CONC 33.6 g/dL (32.0-36.0); MEAN PLATELET VOLUME 10.6 fL (7.4-11.4); MONOCYTES # (AUTO) 0.7 10^3/uL (0.0-1.0); NEUTROPHILS # (AUTO) 5.7 10^3/uL (1.5-6.6); NEUTROPHILS % (AUTO) 66.4 %; PLT - PLATELET COUNT 254 10^3/uL (130-450); RED CELL DISTRIBUTION WIDTH 12.7 % (12.0-15.0); WHITE BLOOD COUNT 8.6 x10^3/uL (4.8-10.8)
[2020-03-19 12:27] LABS: CALCIUM 8.8 mg/dL (8.5-10.3); CREATININE 1.1 mg/dL (0.6-1.2)
[2020-03-19 12:55] VITALS: BP 141/99
--- NOTE | 2020-03-19 13:24 | XRAY Report ---
Reason: cough Procedure Date: 03/19/2020 Accession Number: [id number] / [id number] Procedure: XR - Chest 2 View X-Ray CPT Code: 08090 Final Report FULL RESULT: EXAM: CHEST RADIOGRAPHY EXAM DATE: 03/19/2020 12:29 PM. CLINICAL HISTORY: Cough. COMPARISON: CHEST 2 VIEW 11/25/2019 11:08 AM. TECHNIQUE: 2 views. FINDINGS: Lungs/Pleura: No focal opacities evident. No pleural effusion. No pneumothorax. Decreased volumes. Mediastinum: Heart size normal. Calcified ectatic aorta. Other: None. IMPRESSION: No active cardiopulmonary disease RADIA
== END 2020-03-19 12:41 | disposition home or self-care (01) ==
LOC: ED 11:35
DX: R07.89 Other chest pain (principal); I10 Essential (primary) hypertension; E11.9 Type 2 diabetes mellitus without complications; Z87.891 Personal history of nicotine dependence
CPT/HCPCS: 36415; 71046; 80048; 84484; 85025; 93005; 99284

== ENCOUNTER 2021-01-04 08:00 | Outpatient (CLI) | payer MEDICARE, OTHER ==
[2021-01-04 18:39] LABS: ALBUMIN 3.6 g/dL (3.2-5.5); ALBUMIN/GLOBULIN RATIO 0.8 (1.0-2.2); ALKALINE PHOSPHATASE 81 IU/L (42-121); ALT ALANINE AMINOTRANSFERASE 18 IU/L (10-60); AST ASPARTATE AMINOTRANSFERASE 14 IU/L (10-42); BILIRUBIN,TOTAL 0.7 mg/dL (0.2-1.0); BUN - BLOOD UREA NITROGEN 29 mg/dL (6-20); CALCIUM 9.1 mg/dL (8.5-10.3); CARBON DIOXIDE - CO2 28 mmol/L (21-32); CHLORIDE 102 mmol/L (101-111); CHOL/HDL RATIO 2.6 (<5.0); CHOLESTEROL 108 mg/dL; CREATININE 1.3 mg/dL (0.6-1.2); GLUCOSE 192 mg/dL (70-100); HDL CHOLESTEROL 42 mg/dL; LDL CHOLESTEROL,CALCULATED 43 mg/dL; TOTAL PROTEIN 8.3 g/dL (6.7-8.2); VLDL CHOLESTEROL 23 mg/dL
[2021-01-04 20:27] LABS: HEMOGLOBIN A1c% 8.4 % (4.27-6.07)
== END 2021-01-04 23:59 | disposition home or self-care (01) ==
LOC: LAB.WCP 08:00
PROVIDERS: ATTEND Family Medicine
DX: E11.9 Type 2 diabetes mellitus without complications (principal)
CPT/HCPCS: 36415; 80053; 80061; 83036; 83721

== ENCOUNTER 2021-01-25 12:08 | Inpatient (IN) | payer MEDICARE, OTHER ==
[2021-01-25] MEDS ORDERED: SODIUM CHLORIDE 0.9% 1,000 ML IV STA ×2 (12:57→14:31)
--- NOTE | 2021-01-25 13:02 | ED Physician Documentation ---
History of Present Illness - Stated complaint Stated Complaint: FOUND ON FLOOR YESTERDAY - Chief complaint Chief Complaint: General - History obtained from History obtained from: Patient - Additonal information Additional information: Patient comes emergency department chief complaint of generalized weakness that started a few days ago. He states that it seems to have gotten gradually little worse over the course of last few days. Patient states that he got up to go to the bathroom and try to take a shower today, and he just felt so weak that he had to lay down on the floor. He denies any chest pain or shortness of breath. No abdominal pain, nausea, or vomiting. No diarrhea or dysuria. No fevers or chills. He states that he does not drink much water and that he has been told before that he gets dehydrated. Patient has a history of a CVA. He states that he recovered from all of his deficits after his CVA. No complaints of focal deficits today. No known coronary artery disease. 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 No other complaints at this time. Review of Systems Ten Systems: 10 systems reviewed and negative Constitutional: reports: Fatigue Eyes: reports: Reviewed and negative Ears: reports: Reviewed and negative Nose: reports: Reviewed and negative Throat: reports: Reviewed and negative Cardiac: reports: Reviewed and negative Respiratory: reports: Reviewed and negative GI: reports: Reviewed and negative : reports: Reviewed and negative Skin: reports: Reviewed and negative Musculoskeletal: reports: Reviewed and negative Neurologic: reports: Other (Generalized weakness.). denies: Focal weakness Psychiatric: reports: Reviewed and negative Endocrine: reports: Reviewed and negative Immunocompromised: reports: Reviewed and negative PD PAST MEDICAL HISTORY - Past Medical History Past Medical History: Yes Cardiovascular: Hypertension, High cholesterol Respiratory: None Neuro: TIA Endocrine/Autoimmune: Type 2 diabetes GI: GERD, Other : Benign prostate hypertrophy, Nocturia, Frequency, Kidney stones, Other HEENT: None Psych: Depression, Anxiety, Other Musculoskeletal: Gout, Chronic back pain, Other Derm: None Other Past Medical History: Bladder cancer - Past Surgical History Past Surgical History: No General: Colonoscopy Ortho: Other - Present Medications Home Medications: Ambulatory Orders Medication Instructions Recorded Confirmed Aspirin 81 mg PO DAILY 06/05/17 01/16/19 lisinopriL [Lisinopril] 40 mg PO DAILY 06/05/17 01/16/19 Clopidogrel [Plavix] 75 mg PO DAILY #10 tablet 01/15/19 01/16/19 hydroCHLOROthiazide 50 mg PO DAILY 01/16/19 01/16/19 [Hydrochlorothiazide] Atorvastatin [Lipitor] 80 mg PO QPM #20 tablet 01/17/19 - Allergies Allergies/Adverse Reactions: Allergies Allergy/AdvReac Type Severity Reaction Status Date / Time No Known Drug Allergies Allergy Verified 01/25/21 12:20 - Social History Does the pt smoke?: No Smoking Status: Never smoker Does the pt drink ETOH?: No Does the pt have substance abuse?: No - Immunizations Immunizations are current?: Yes - POLST Patient has POLST: No PD ED PE NORMAL - Vitals Vital signs reviewed: Yes - General General: Alert and oriented X 3, No acute distress, Well developed/nourished - HEENT HEENT: Atraumatic, PERRL, EOMI, Moist mucous membranes - Neck Neck: Supple, no meningeal sign - Cardiac Cardiac: RRR, No murmur, Strong equal pulses - Respiratory Respiratory: No respiratory distress, Clear bilaterally - Abdomen Abdomen: Soft, Non tender, Non distended - Derm Derm: Normal color, Warm and dry, No rash - Extremities Extremities: No deformity, No edema, No calf tenderness / cord - Neuro Neuro: Alert and oriented X 3, braiding operator 2-12 intact, No motor deficit (No gross deficit), Normal speech - Psych Psych: Normal mood, Normal affect Results - Vitals Vitals: Vital Signs - 24 hr 01/25/21 01/25/21 01/25/21 12:20 12:37 13:55 Temperature 36.3 C L Heart Rate 87 74 80 Respiratory 18 14 20 Rate Blood Pressure 93/48 L 94/64 95/59 L O2 Saturation 100 96 98 Oxygen O2 Source Room air - Labs Labs: Laboratory Tests 01/25/21 01/25/21 13:19 13:19 WBC 17.0 H RBC 4.30 L Hgb 13.3 L Hct 41.4 L MCV 96.3 H MCH 30.9 MCHC 32.1 RDW 13.4 Plt Count 231 MPV 10.9 Neut # (Auto) 14.1 H Lymph # (Auto) 1.3 [place] # (Auto) 1.3 H Eos # (Auto) 0.1 Baso # (Auto) 0.1 Absolute Nucleated RBC 0.00 Nucleated RBC % 0.0 Sodium 134 L Potassium 4.1 Chloride 98 L Carbon Dioxide 24 Anion Gap 12.0 BUN 82 H* Creatinine 3.9 H Estimated GFR (MDRD) 15 L Glucose 225 H Calcium 8.4 L Total Bilirubin 0.9 AST 33 ALT 30 Alkaline Phosphatase 78 Total Protein 7.8 Albumin 3.2 Globulin 4.6 H Albumin/Globulin Ratio 0.7 L Lipase 27 PD MEDICAL DECISION MAKING - ED course Complexity details: reviewed old records, reviewed results, re-evaluated patient, considered differential, d/w patient ED course: The patient was treated with IV fluids and worked up with laboratory studies and urinalysis. He was found to have an elevated BUN at 82 and a creatinine of 3.9. This was an acute change since 3 weeks ago when he was last seen here. The patient received serial boluses in the ED. I spoke to Dr. Duncan, who agreed to admit the patient to her service. Departure - Departure Disposition: 66 [facility] DC/Xfer Clinical Impression: Acute prerenal failure, Dehydration Condition: Serious
[2021-01-25 13:53] LABS: BASOPHILS # (AUTO) 0.1 10^3/uL (0.0-0.1); BASOPHILS % (AUTO) 0.3 %; EOSINOPHILS # (AUTO) 0.1 10^3/uL (0.0-0.7); EOSINOPHILS % (AUTO) 0.3 %; HCT - HEMATOCRIT 41.4 % (42.0-52.0); HGB - HEMOGLOBIN 13.3 g/dL (14.0-18.0); LYMPHOCYTES # (AUTO) 1.3 10^3/uL (1.5-3.5); LYMPHOCYTES % (AUTO) 7.7 %; MEAN CORPUSCULAR HEMOGLOBIN 30.9 pg (27.0-31.0); MEAN CORPUSCULAR HGB CONC 32.1 g/dL (32.0-36.0); MEAN CORPUSCULAR VOLUME 96.3 fL (80.0-94.0); MEAN PLATELET VOLUME 10.9 fL (7.4-11.4); MONOCYTES # (AUTO) 1.3 10^3/uL (0.0-1.0); MONOCYTES % (AUTO) 7.4 %; NEUTROPHILS # (AUTO) 14.1 10^3/uL (1.5-6.6); NEUTROPHILS % (AUTO) 83.4 %; PLT - PLATELET COUNT 231 10^3/uL (130-450); RED CELL DISTRIBUTION WIDTH 13.4 % (12.0-15.0)
[2021-01-25 14:09] LABS: ALBUMIN 3.2 g/dL (3.2-5.5); ALBUMIN/GLOBULIN RATIO 0.7 (1.0-2.2); BILIRUBIN,TOTAL 0.9 mg/dL (0.2-1.0); CALCIUM 8.4 mg/dL (8.5-10.3); CREATININE 3.9 mg/dL (0.6-1.2); POTASSIUM 4.1 mmol/L (3.5-5.0); TOTAL PROTEIN 7.8 g/dL (6.7-8.2)
[2021-01-25] MEDS ORDERED: ACETAMINOPHEN 325 MG TABLET PO PRN (14:34)
[2021-01-25] MEDS ORDERED: ONDANSETRON ODT 4 MG TABLET TL PRN (14:34)
[2021-01-25] MEDS ORDERED: SODIUM CHLORIDE FLUSH 0.9% 10 ML SYRINGE IVP PRN (14:34)
[2021-01-25] MEDS ORDERED: ONDANSETRON 4 MG/2 ML VIAL IVP PRN (14:34)
[2021-01-25] MEDS ORDERED: oxyCODONE 5 MG TABLET PO PRN (14:34)
[2021-01-25 15:35] LABS: B. PARAPERTUSSIS- RESP PCR PAN NOT DETECTED; B. PERTUSSIS- RESP PCR PANEL NOT DETECTED; C. PNEUMONIAE- RESP PCR PANEL NOT DETECTED; CORONAVIRUS 229E-RESP PCR NOT DETECTED; CORONAVIRUS HKU1-RESP PCR NOT DETECTED; CORONAVIRUS NL63-RESP PCR NOT DETECTED; CORONAVIRUS OC43-RESP PCR NOT DETECTED; HUMAN METAPNEUMOVIRUS NOT DETECTED; INFLUENZA A- RESP PCR PANEL NOT DETECTED; INFLUENZA B - RESP PCR PANEL NOT DETECTED; M. PNEUMONIAE- RESP PCR PANEL NOT DETECTED; PARAINFLUENZA VIRUS 1 NOT DETECTED; PARAINFLUENZA VIRUS 2 NOT DETECTED; PARAINFLUENZA VIRUS 3 NOT DETECTED; PARAINFLUENZA VIRUS 4 NOT DETECTED; RHINOVIRUS/ENTEROVIRUS NOT DETECTED; RSV- RESP PCR PANEL NOT DETECTED; SARS-CoV-2 -RESP PCR PANEL NOT DETECTED
[2021-01-25] MEDS: SODIUM CHLORIDE 0.9% 1,000 ML IV SCH (16:09)
[2021-01-25] MEDS ORDERED: SODIUM CHLORIDE 0.9% 500 ML IV PRN (16:42)
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
[2021-01-25] MEDS: SODIUM CHLORIDE FLUSH 0.9% 10 ML SYRINGE IVP SCH (17:43)
--- NOTE | 2021-01-25 18:22 | XRAY Report ---
PROCEDURE: Chest 1 View X-Ray INDICATIONS: aloc, wbc TECHNIQUE: One view of the chest was acquired. COMPARISON: 03/19/2020 FINDINGS: Surgical changes and devices: Right chest wall Port-A-Cath tip is projecting in the expected location of SVC.. Lungs and pleura: No pleural effusions or pneumothorax. Increased interstitial reticular markings ar e noted. No focal infiltrate. Mediastinum: Mediastinal contours appear normal. Heart size is enlarged. Bones and chest wall: No suspicious bony lesions. Overlying soft tissues appear unremarkable. IMPRESSION: Increased interstitial reticular markings most consistent with chronic lung parenchymal disease/pulmo nary fibrosis. No focal infiltrate, pleural effusion or pneumothorax. Reviewed by: Osmani Burrell MD on 01/25/2021 6:20 PM PST Approved by: Osmani Burrell MD on 01/25/2021 6:20 PM PST Station ID: [id number]
[2021-01-25 18:54] LABS: GLUCOSE, URINE (UA) NEGATIVE (NEGATIVE); KETONES,URINE (UA) NEGATIVE (NEGATIVE); LEUKOCYTE ESTERASE, URINE NEGATIVE (NEGATIVE); NITRITE,URINE NEGATIVE (NEGATIVE); OCCULT BLOOD,URINE SMALL (NEGATIVE); PROTEIN,URINE 30 mg/dL (NEGATIVE); UROBILINOGEN,URINE 0.2 (NORMAL) E.U./dL (NORMAL)
[2021-01-25 19:03] LABS: BILIRUBIN,URINE SMALL (NEGATIVE); CLARITY,URINE CLEAR (CLEAR); ICTOTEST,URINE POSITIVE
[2021-01-25 19:30] LABS: BACTERIA,URINE Few /HPF (None Seen); EPITHELIAL CELLS,UR RARE Transitional /HPF (<= Few); RBC,URINE 0-5 /HPF (0-5); SQUAMOUS EPITHELIAL CELL,UR NONE SEEN (<= Few); WBC,URINE 0-3 /HPF (0-3)
[2021-01-25 19:31] LABS: AMORPHOUS SEDIMENT,UR Few /LPF
[2021-01-25 19:41] LABS: CALCIUM 8.2 mg/dL (8.5-10.3); CREATININE 3.3 mg/dL (0.6-1.2)
[2021-01-25] MEDS: INSULIN ASPART 300 UNIT/3 ML PEN SUBQ SCH (21:07)
[2021-01-25] MEDS: INSULIN GLARGINE 300 UNIT/3 ML PEN SUBQ SCH (21:08)
[2021-01-26] MEDS: SODIUM CHLORIDE FLUSH 0.9% 10 ML SYRINGE IVP SCH ×3 (00:37→19:20)
[2021-01-26] MEDS: SODIUM CHLORIDE 0.9% 1,000 ML IV SCH ×3 (01:56→21:32)
[2021-01-26 06:05] LABS: BASOPHILS % (AUTO) 0.2 %; EOSINOPHILS # (AUTO) 0.2 10^3/uL (0.0-0.7); EOSINOPHILS % (AUTO) 1.7 %; HCT - HEMATOCRIT 37.7 % (42.0-52.0); HGB - HEMOGLOBIN 12.4 g/dL (14.0-18.0); LYMPHOCYTES # (AUTO) 1.3 10^3/uL (1.5-3.5); LYMPHOCYTES % (AUTO) 11.7 %; MEAN CORPUSCULAR HEMOGLOBIN 31.7 pg (27.0-31.0); MEAN CORPUSCULAR HGB CONC 32.9 g/dL (32.0-36.0); MEAN CORPUSCULAR VOLUME 96.4 fL (80.0-94.0); MEAN PLATELET VOLUME 10.4 fL (7.4-11.4); NEUTROPHILS # (AUTO) 8.5 10^3/uL (1.5-6.6); NEUTROPHILS % (AUTO) 76.9 %; PLT - PLATELET COUNT 190 10^3/uL (130-450); RED BLOOD COUNT 3.91 10^6/uL (4.70-6.10); RED CELL DISTRIBUTION WIDTH 13.3 % (12.0-15.0); WHITE BLOOD COUNT 11.1 x10^3/uL (4.8-10.8)
[2021-01-26 06:14] LABS: CALCIUM 7.8 mg/dL (8.5-10.3); CREATININE 2.5 mg/dL (0.6-1.2); POTASSIUM 3.8 mmol/L (3.5-5.0)
--- NOTE | 2021-01-26 07:07 | PROVIDER PROGRESS NOTE ---
Assessment/Plan - Problem List (1) Acute metabolic encephalopathy Assessment/Plan: Improved. This was likely multifactorial due to renal failure, dehydration, lack of p.o. intake. Patient also has some documented cognitive deficits. Patient receiving IV hydration with normal saline. Creatinine has improved from 3.9 down to 2.5. Patient was seen by physical therapy today who determined the patient is doing well and will mainly need a walker upon discharge. He may follow-up with physical therapy outpatient. Patient also reports that he has a neuropsych eval in [place]. He does not remember the specific date. Occupational Therapy asked to do cognitive eval while the patient is in the hospital. (2) Acute prerenal failure Assessment/Plan: Improving with IV hydration. Patient's creatinine today was 2.5. At admission creatinine was 3.9. (3) Dehydration Assessment/Plan: To poor p.o. intake from being on the ground. Patient is receiving IV hydration Patient also tolerated his breakfast well. (4) Generalized weakness Assessment/Plan: Patient was seen by physical therapy today who determined the patient is doing well and will mainly need a walker upon discharge. He may follow-up with physical therapy outpatient. (5) Stage IV bladder cancer Assessment/Plan: Has received 2 TURBTs. 4 cycles of chemotherapy. A cystectomy has been recommended and the patient has declined. 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 (6) Cognitive decline Assessment/Plan: This has been noted by patient's primary care physician. It was reported that patient has been forgetting appointments and showing up for unscheduled appointment. And the cause of the visit today patient will repeat the same statement he made moments and there without seeming to be aware he had just done so. Patient is having difficulty selling his home because of legalities of a patient with dementia selling his home. Patient is in contention with his son regarding the matter of his cognitive decline. Patient states that he has a neuropsych appointment scheduled in the near future in [place]. APS referral has been made. (7) DM w/o complication type II, uncontrolled Qualifiers: Glycemic state: with hyperglycemia Qualified Code(s): E11.65 - Type 2 diabetes mellitus with hyperglycemia Assessment/Plan: Last A1c in 01/04/21 was 8.4. Patient used to be on Metformin but is currently not taking Lantus 10 units subcu every afternoon ordered. Low-dose sliding scale insulin ordered. Accu-Cheks before every meal and at bedtime. (8) Multiple skin tears Assessment/Plan: Acute. These have been cleaned and dressed. Anticipating healing over time. (9) Non-pressure ulcer of right lower extremity Qualifiers: Non-pressure ulcer stage: limited to breakdown of skin Qualified Code(s): L97.911 - Non-pressure chronic ulcer of unspecified part of right lower leg limited to breakdown of skin Assessment/Plan: Cleaned and dressed. Patient to follow-up with wound care clinic as set up in the outpatient setting. - Current Meds Current Meds: Current Medications Generic Name Dose Route Start Last Admin Trade Name Freq PRN Reason Stop Dose Admin Sodium Chloride 1,000 mls @ 100 mls/hr 01/25/21 15:00 01/26/21 01:56 Normal Saline 0.9% IV 100 mls/hr .Q10H DIANDRA Administration Insulin Aspart 1 - 5 unit 01/25/21 21:00 01/25/21 21:07 Insulin Aspart 300 Unit/3 Ml Pen SUBQ 2 unit 0800,1200,1700,2100 DIANDRA Administration Protocol Insulin Glargine 10 unit 01/25/21 21:00 01/25/21 21:08 Insulin Glargine 300 Unit/3 Ml Pen SUBQ 10 unit QPM DIANDRA Administration Sodium Chloride 10 ml 01/25/21 17:00 01/26/21 00:37 Sodium Chloride Flush 0.9% 10 Ml Syringe IVP Not Given 0100,0900,1700 DIANDRA - Lab Result Fish Bone Diagrams: 01/26/21 05:58 01/26/21 05:58 Subjective - Subjective Patient Reports: Other (Mosley was seated up in bedside chair at time of exam. He denied any physical complaints. Prior to my visit he had been ambulating around the floor using a walker. He gets tearful talking about his who last March. Patient repeats the same statements he made comments before without s) Objective Vital Signs: Vital Signs - 24 hr 01/25/21 01/25/21 01/25/21 12:20 12:37 13:55 Temperature 36.3 C L Heart Rate 87 74 80 Heart Rate [ Brachial] Respiratory 18 14 20 Rate Blood Pressure 93/48 L 94/64 95/59 L Blood Pressure [Right Brachial artery] O2 Saturation 100 96 98 01/25/21 01/25/21 01/26/21 15:55 20:45 00:00 Temperature 36.3 C L 36.5 C 36.4 C L Heart Rate Heart Rate [ 87 87 91 Brachial] Respiratory 20 20 18 Rate Blood Pressure Blood Pressure 136/99 H 110/60 113/62 [Right Brachial artery] O2 Saturation 99 97 94 Oxygen O2 Source Room air I&O (Last 24 Hrs): Intake and Output Totals x24h 01/24/21 01/25/21 01/26/21 23:59 23:59 23:59 Intake Total 2195 1000 Output Total 100 300 Balance 2095 700 General: Alert, Cooperative, No acute distress HEENT: PERRLA, EOMI Neck: Supple, No JVD Neuro: Alert, Non Focal, Other (Patient repeats same statments he made moment earlier with no awareness he is doing.) Cardiovascular: Regular rate, Normal S1 Respiratory: Chest non-tender, No respiratory distress, Breath sounds nml Abdomen: Normal bowel sounds, Soft Extremities: No clubbing, No cyanosis, No edema, No tenderness/swelling Skin: No rashes, No breakdown, No significant lesion - Results Results: Laboratory Results WBC 11.1 x10^3/uL (4.8-10.8) H 01/26/21 05:58 RBC 3.91 10^6/uL (4.70-6.10) L 01/26/21 05:58 Hgb 12.4 g/dL (14.0-18.0) L 01/26/21 05:58 Hct 37.7 % (42.0-52.0) L 01/26/21 05:58 MCV 96.4 fL (80.0-94.0) H 01/26/21 05:58 MCH 31.7 pg (27.0-31.0) H 01/26/21 05:58 MCHC 32.9 g/dL (32.0-36.0) 01/26/21 05:58 RDW 13.3 % (12.0-15.0) 01/26/21 05:58 Plt Count 190 10^3/uL (130-450) 01/26/21 05:58 MPV 10.4 fL (7.4-11.4) 01/26/21 05:58 Neut # (Auto) 8.5 10^3/uL (1.5-6.6) H 01/26/21 05:58 Lymph # (Auto) 1.3 10^3/uL (1.5-3.5) L 01/26/21 05:58 Mathews # (Auto) 1.0 10^3/uL (0.0-1.0) 01/26/21 05:58 Eos # (Auto) 0.2 10^3/uL (0.0-0.7) 01/26/21 05:58 Baso # (Auto) 0.0 10^3/uL (0.0-0.1) 01/26/21 05:58 Absolute Nucleated RBC 0.00 x10^3/uL 01/26/21 05:58 Nucleated RBC % 0.0 /100WBC 01/26/21 05:58 Sodium 136 mmol/L (135-145) 01/26/21 05:58 Potassium 3.8 mmol/L (3.5-5.0) 01/26/21 05:58 Chloride 104 mmol/L (101-111) 01/26/21 05:58 Carbon Dioxide 22 mmol/L (21-32) 01/26/21 05:58 Anion Gap 10.0 (6-13) 01/26/21 05:58 BUN 74 mg/dL (6-20) H 01/26/21 05:58 Creatinine 2.5 mg/dL (0.6-1.2) H 01/26/21 05:58 Estimated GFR (MDRD) 25 (>89) L 01/26/21 05:58 Glucose 165 mg/dL (70-100) H 01/26/21 05:58 POC Whole Bld Glucose 188 mg/dL (70 - 100) H 01/25/21 20:41 Calcium 7.8 mg/dL (8.5-10.3) L 01/26/21 05:58 Total Bilirubin 0.9 mg/dL (0.2-1.0) 01/25/21 13:19 AST 33 IU/L (10-42) 01/25/21 13:19 ALT 30 IU/L (10-60) 01/25/21 13:19 Alkaline Phosphatase 78 IU/L (42-121) 01/25/21 13:19 Total Creatine Kinase 608 IU/L (22-269) H 01/25/21 19:20 Total Protein 7.8 g/dL (6.7-8.2) 01/25/21 13:19 Albumin 3.2 g/dL (3.2-5.5) 01/25/21 13:19 Globulin 4.6 g/dL (2.1-4.2) H 01/25/21 13:19 Albumin/Globulin Ratio 0.7 (1.0-2.2) L 01/25/21 13:19 Lipase 27 U/L (22-51) 01/25/21 13:19 Urine Color DARK YELLOW 01/25/21 18:30 Urine Clarity CLEAR (CLEAR) 01/25/21 18:30 Urine pH 5.0 PH (5.0-7.5) 01/25/21 18:30 Ur Specific [place] >=1.030 (1.002-1.030) H 01/25/21 18:30 Urine Protein 30 mg/dL (NEGATIVE) H 01/25/21 18:30 Urine Glucose (UA) NEGATIVE mg/dL (NEGATIVE) 01/25/21 18:30 Urine Ketones NEGATIVE mg/dL (NEGATIVE) 01/25/21 18:30 Urine Occult Blood SMALL (NEGATIVE) H 01/25/21 18:30 Urine Nitrite NEGATIVE (NEGATIVE) 01/25/21 18:30 Urine Bilirubin SMALL (NEGATIVE) H 01/25/21 18:30 Urine Urobilinogen 0.2 (NORMAL) E.U./dL (NORMAL) 01/25/21 18:30 Ur Leukocyte Esterase NEGATIVE (NEGATIVE) 01/25/21 18:30 Urine RBC 0-5 /HPF (0-5) 01/25/21 18:30 Urine WBC 0-3 /HPF (0-3) 01/25/21 18:30 Ur Epithelial Cells RARE Transitional /HPF (<= Few) 01/25/21 18:30 Ur Squamous Epith Cells NONE SEEN (<= Few) 01/25/21 18:30 Amorphous Sediment Few /LPF 01/25/21 18:30 Urine Bacteria Few /HPF (None Seen) 01/25/21 18:30 Urine Casts 3-5 Hyaline Casts /LPF6-10 Fine Granular /LPF 01/25/21 18:30 Urine Casts 3-5 Hyaline Casts /LPF6-10 Fine Granular /LPF 01/25/21 18:30 Ur Microscopic Review INDICATED 01/25/21 18:30 Urine Culture Comments NOT INDICATED 01/25/21 18:30 Nasal Adenovirus (PCR) NOT DETECTED 01/25/21 14:40 Nasal B. parapertussis DNA (PCR) NOT DETECTED 01/25/21 14:40 Nasal Coronavir 229E PCR NOT DETECTED 01/25/21 14:40 Nasal Coronavir HKU1 PCR NOT DETECTED 01/25/21 14:40 Nasal Coronavir NL63 PCR NOT DETECTED 01/25/21 14:40 Nasal Coronavir OC43 PCR NOT DETECTED 01/25/21 14:40 Nasal Enterovir/Rhinovir PCR NOT DETECTED 01/25/21 14:40 Nasal Influenza B PCR NOT DETECTED 01/25/21 14:40 Nasal Influenza A PCR NOT DETECTED 01/25/21 14:40 Nasal Parainfluen 1 PCR NOT DETECTED 01/25/21 14:40 Nasal Parainfluen 2 PCR NOT DETECTED 01/25/21 14:40 Nasal Parainfluen 3 PCR NOT DETECTED 01/25/21 14:40 Nasal Parainfluen 4 PCR NOT DETECTED 01/25/21 14:40 Nasal RSV (PCR) NOT DETECTED 01/25/21 14:40 Nasal B.pertussis DNA PCR NOT DETECTED 01/25/21 14:40 Nasal C.pneumoniae (PCR) NOT DETECTED 01/25/21 14:40 Ludin Human Metapneumo PCR NOT DETECTED 01/25/21 14:40 Nasal M.pneumoniae (PCR) NOT DETECTED 01/25/21 14:40 Nasal SARS-CoV-2 (PCR) NOT DETECTED 01/25/21 14:40
[2021-01-26] MEDS: INSULIN ASPART 300 UNIT/3 ML PEN SUBQ SCH ×4 (07:48→20:59)
--- NOTE | 2021-01-26 10:18 | Ultrasound Report ---
PROCEDURE: Retroperitoneal INDICATIONS: acute renal failure TECHNIQUE: Real-time scanning was performed of the retroperitoneal organs, with image documentation. COMPARISON: Retroperitoneal ultrasound 01/08/2019, 02/17/2020 FINDINGS: Kidneys: Right kidney measures 11.6 cm long; left kidney measures 11.1 cm long. Right renal cortic al thickness is 1.2 cm; left renal cortical thickness is 1.4 cm. There is mild appearance of increa sed echogenicity bilaterally, right greater than left. Bilateral renal cysts are noted the largest on the left measuring 7.2 x 4.7 x 4.4 cm. Septation is identified. There are 2 echogenic foci identifie d within the left kidney measuring 4 x 3 mm and 8 x 7 mm. C1 focus demonstrates a questionable appear ance of posterior shadowing, less so identified on prior exam. Bladder: Prevoid volume 2 85 cc, post void residual to 18 cc. Bilateral ureteral jets are identified. Prostate measures 5.6 x 5.4 x 6.0 cm. Bladder wall is irregular, similar as noted on prior exams.. IMPRESSION: 1. Increased echogenicity of the kidneys suggests medical renal disease. 2. Increased foci within the left kidney as above. While these could represent areas of calcification , given lack of posterior shadowing associated with these foci, other etiologies such as angiomyolipo ma cannot be excluded. These foci were not identified on prior ultrasound. As clinically indicated, C T abdomen pelvis with contrast may be obtained for further evaluation. Reviewed by: Genevieve Dawson MD on 01/26/2021 10:17 AM [facility] Approved by: Genevieve Dawson MD on 01/26/2021 10:17 AM PST Station ID: [id number]
[2021-01-26 12:47] LABS: ESTIMATED AVERAGE GLUCOSE 197 mg/dL (70-100); HEMOGLOBIN A1c% 8.5 % (4.27-6.07)
--- NOTE | 2021-01-26 15:08 | PHARMACY PROGRESS NOTE ---
- Best Possible Medication History Admit Date and Time: 01/25/21 1434 Processed by: Pharmacy Medication History completed: Yes Patient Interview: Completed (Pt interview completed by Jackson 01/26) Secondary Source(s): Pharmacy records, Insurance records As the person ultimately responsible for medication therapy, providers are able to order a medication from an existing home medication list in [facility] via the "Reconcile Routine" prior to Confirmation of that medication by product support representative. Such practice is discouraged except when the physician, in their clinical judgment, deems that a medical need exists for a medication without regard to previous use.
[2021-01-26] MEDS: MULTIVITAMIN W/MINERALS TABLET PO SCH (16:28)
[2021-01-26] MEDS: INSULIN GLARGINE 300 UNIT/3 ML PEN SUBQ SCH (21:01)
[2021-01-27] MEDS: SODIUM CHLORIDE FLUSH 0.9% 10 ML SYRINGE IVP SCH ×3 (00:32→17:07)
[2021-01-27 04:51] LABS: BASOPHILS % (AUTO) 0.5 %; EOSINOPHILS # (AUTO) 0.3 10^3/uL (0.0-0.7); EOSINOPHILS % (AUTO) 3.7 %; HCT - HEMATOCRIT 36.8 % (42.0-52.0); HGB - HEMOGLOBIN 11.9 g/dL (14.0-18.0); LYMPHOCYTES # (AUTO) 1.3 10^3/uL (1.5-3.5); LYMPHOCYTES % (AUTO) 16.8 %; MEAN CORPUSCULAR HEMOGLOBIN 31.4 pg (27.0-31.0); MEAN CORPUSCULAR HGB CONC 32.3 g/dL (32.0-36.0); MEAN CORPUSCULAR VOLUME 97.1 fL (80.0-94.0); MEAN PLATELET VOLUME 9.9 fL (7.4-11.4); MONOCYTES % (AUTO) 12.6 %; NEUTROPHILS % (AUTO) 65.2 %; PLT - PLATELET COUNT 188 10^3/uL (130-450); RED BLOOD COUNT 3.79 10^6/uL (4.70-6.10); RED CELL DISTRIBUTION WIDTH 13.3 % (12.0-15.0); WHITE BLOOD COUNT 7.6 x10^3/uL (4.8-10.8)
[2021-01-27 05:00] LABS: CALCIUM 7.8 mg/dL (8.5-10.3); CREATININE 1.6 mg/dL (0.6-1.2); POTASSIUM 3.9 mmol/L (3.5-5.0)
[2021-01-27] MEDS: SODIUM CHLORIDE 0.9% 1,000 ML IV SCH ×2 (07:41→17:12)
[2021-01-27] MEDS: INSULIN ASPART 300 UNIT/3 ML PEN SUBQ SCH ×4 (08:06→20:56)
[2021-01-27] MEDS: MULTIVITAMIN W/MINERALS TABLET PO SCH (08:07)
--- NOTE | 2021-01-27 10:56 | PROVIDER PROGRESS NOTE ---
Subjective - Prog Note Date Prog Note Date: 01/27/21 - Subjective Pt reports feeling: Improved Subjective: pt report he feel better, he denies fever, chill, chest pain, shortness of breath. Patient is alert and orientated on today. Patient report he had central line port For his chemotherapy for every any other Monday, He will call his storage room company because he had a schedule to remove his stuff on tomorrow, and that he remembers the telephone number of storage room. He clearly state he want to be d/ to home, NOT to nurse home or SNF on today. Current Medications - Current Medications Current Medications: Active Medications Acetaminophen (Acetaminophen 325 Mg Tablet) 650 mg PO Q4HR PRN PRN Reason: Pain 1 to 4 Heparin Sodium (Beef Lung) (Heparin Flush 50 Units/5 Ml Syringe) 30 - 50 unit IVP PRN PRN PRN Reason: Port Protocol (<24 hours) Heparin Sodium (Beef Lung) (Heparin Flush 500 Units/5 Ml Syringe) 300 - 500 unit IVP PRN PRN PRN Reason: Port Protocol (>24 hours) Sodium Chloride (Normal Saline 0.9%) 1,000 mls @ 100 mls/hr IV .Q10H [facility] Last Admin: 01/27/21 07:41 Dose: 100 mls/hr Documented by: Sodium Chloride (Normal Saline 0.9%) 500 mls @ 20 mls/hr IV Q24H PRN PRN Reason: TKO RATE Insulin Aspart (Insulin Aspart 300 Unit/3 Ml Pen) 1 - 5 unit SUBQ 0800,1200,1700,2100 [facility]; Protocol Last Admin: 01/27/21 08:06 Dose: Not Given Documented by: Insulin Glargine (Insulin Glargine 300 Unit/3 Ml Pen) 10 unit SUBQ QPM [facility] Last Admin: 01/26/21 21:01 Dose: 10 unit Documented by: Multivitamins/Minerals (Multivitamin W/Minerals Tablet) 1 tab PO DAILYWM [facility] Last Admin: 01/27/21 08:07 Dose: 1 tab Documented by: Ondansetron HCl (Ondansetron Odt 4 Mg Tablet) 4 mg TL Q6HR PRN PRN Reason: Nausea / Vomiting Ondansetron HCl (Ondansetron 4 Mg/2 Ml Vial) 4 mg IVP Q6HR PRN PRN Reason: Nausea / Vomiting Oxycodone HCl (Oxycodone 5 Mg Tablet) 5 mg PO Q4HR PRN PRN Reason: Pain 5 to 7 Sodium Chloride (Sodium Chloride Flush 0.9% 10 Ml Syringe) 10 ml IVP PRN PRN PRN Reason: NEEDED PER PROVIDER ORDERS Sodium Chloride (Sodium Chloride Flush 0.9% 10 Ml Syringe) 10 ml IVP 0100,0900,1700 [facility] Last Admin: 01/27/21 08:06 Dose: Not Given Documented by: lisinopriL [Lisinopril] 40 mg PO DAILY 06/05/17 hydroCHLOROthiazide [Hydrochlorothiazide] 25 mg PO DAILY 01/16/19 Objective - Vital Signs/Intake & Output Vital Signs: Vital Signs x48h Temp Pulse Resp BP Pulse Ox 01/27/21 07:57 37.0 C 72 17 152/85 H 97 Intake & Output: Intake & Output 01/24/21 01/25/21 01/26/21 01/27/21 23:59 23:59 23:59 23:59 Intake Total 2195 3876.667 1480 Output Total 100 1000 1100 Balance 2095 2876.667 380 - Objective General Appearance: positive: No acute distress, Alert. negative: Lethargic Eyes Bilateral: positive: Normal inspection, PERRL, No lid inflammation ENT: positive: ENT inspection nml, No signs of dehydration. negative: Purulent nasal drainage Neck: positive: Nml inspection, Trachea midline. negative: Thyromegaly, Tracheal deviation Respiratory: positive: Chest non-tender, No respiratory distress. negative: Wheezes, Rales Cardiovascular: positive: Regular rate & rhythm - Lab Results Fish Bones: 01/27/21 04:45 01/27/21 04:45 Other Labs: Lab Results x24hrs 01/27/21 01/27/21 01/27/21 Range/Units 07:28 04:45 04:45 WBC 7.6 (4.8-10.8) x10^3/uL RBC 3.79 L (4.70-6.10) 10^6/uL Hgb 11.9 L (14.0-18.0) g/dL Hct 36.8 L (42.0-52.0) % MCV 97.1 H (80.0-94.0) fL MCH 31.4 H (27.0-31.0) pg MCHC 32.3 (32.0-36.0) g/dL RDW 13.3 (12.0-15.0) % Plt Count 188 (130-450) 10^3/uL MPV 9.9 (7.4-11.4) fL Neut # (Auto) 5.0 (1.5-6.6) 10^3/uL Lymph # (Auto) 1.3 L (1.5-3.5) 10^3/uL Williamson # (Auto) 1.0 (0.0-1.0) 10^3/uL Eos # (Auto) 0.3 (0.0-0.7) 10^3/uL Baso # (Auto) 0.0 (0.0-0.1) 10^3/uL Absolute Nucleated RBC 0.00 x10^3/uL Nucleated RBC % 0.0 /100WBC Sodium 137 (135-145) mmol/L Potassium 3.9 (3.5-5.0) mmol/L Chloride 106 (101-111) mmol/L Carbon Dioxide 22 (21-32) mmol/L Anion Gap 9.0 (6-13) BUN 50 H (6-20) mg/dL Creatinine 1.6 H (0.6-1.2) mg/dL Estimated GFR (MDRD) 41 L (>89) Glucose 176 H (70-100) mg/dL POC Whole Bld Glucose 139 H (70 - 100) mg/dL Estimat Average Glucose (70-100) mg/dL Hemoglobin A1c % (4.27-6.07) % Calcium 7.8 L (8.5-10.3) mg/dL 01/26/21 01/26/21 01/26/21 Range/Units 20:13 16:37 11:18 WBC (4.8-10.8) x10^3/uL RBC (4.70-6.10) 10^6/uL Hgb (14.0-18.0) g/dL Hct (42.0-52.0) % MCV (80.0-94.0) fL MCH (27.0-31.0) pg MCHC (32.0-36.0) g/dL RDW (12.0-15.0) % Plt Count (130-450) 10^3/uL MPV (7.4-11.4) fL Neut # (Auto) (1.5-6.6) 10^3/uL Lymph # (Auto) (1.5-3.5) 10^3/uL Williamson # (Auto) (0.0-1.0) 10^3/uL Eos # (Auto) (0.0-0.7) 10^3/uL Baso # (Auto) (0.0-0.1) 10^3/uL Absolute Nucleated RBC x10^3/uL Nucleated RBC % /100WBC Sodium (135-145) mmol/L Potassium (3.5-5.0) mmol/L Chloride (101-111) mmol/L Carbon Dioxide (21-32) mmol/L Anion Gap (6-13) BUN (6-20) mg/dL Creatinine (0.6-1.2) mg/dL Estimated GFR (MDRD) (>89) Glucose (70-100) mg/dL POC Whole Bld Glucose 223 H 183 H 196 H (70 - 100) mg/dL Estimat Average Glucose (70-100) mg/dL Hemoglobin A1c % (4.27-6.07) % Calcium (8.5-10.3) mg/dL 01/26/21 Range/Units 05:58 WBC (4.8-10.8) x10^3/uL RBC (4.70-6.10) 10^6/uL Hgb (14.0-18.0) g/dL Hct (42.0-52.0) % MCV (80.0-94.0) fL MCH (27.0-31.0) pg MCHC (32.0-36.0) g/dL RDW (12.0-15.0) % Plt Count (130-450) 10^3/uL MPV (7.4-11.4) fL Neut # (Auto) (1.5-6.6) 10^3/uL Lymph # (Auto) (1.5-3.5) 10^3/uL Williamson # (Auto) (0.0-1.0) 10^3/uL Eos # (Auto) (0.0-0.7) 10^3/uL Baso # (Auto) (0.0-0.1) 10^3/uL Absolute Nucleated RBC x10^3/uL Nucleated RBC % /100WBC Sodium (135-145) mmol/L Potassium (3.5-5.0) mmol/L Chloride (101-111) mmol/L Carbon Dioxide (21-32) mmol/L Anion Gap (6-13) BUN (6-20) mg/dL Creatinine (0.6-1.2) mg/dL Estimated GFR (MDRD) (>89) Glucose (70-100) mg/dL POC Whole Bld Glucose (70 - 100) mg/dL Estimat Average Glucose 197 H (70-100) mg/dL Hemoglobin A1c % 8.5 H (4.27-6.07) % Calcium (8.5-10.3) mg/dL Assessment/Plan - Problem List (1) Acute metabolic encephalopathy Impression: Great improved, Patient is clear and orientated on today. agreed it is likely multifactorial due to JOSE, dehydration, lack of p.o. intake, pt will have cognitive assessment as well. pt clearly state he want to be d/c to home not SNF or nurse home. We will continue hydration, neuro check (2) Acute prerenal failure Assessment/Plan: Improve with IV hydration. Patient's creatinine today was 1.6. At admission creatinine was 3.9. will continue hydration, and lab monitor (3) Dehydration Assessment/Plan: improved. Due To poor p.o. intake from felling on the ground. Patient is receiving IV hydration Patient also tolerated diet now (4) Generalized weakness Assessment/Plan: improved. physical therapy assessed the patient is doing well and will mainly ne ed a walker upon discharge. Patient is prescribed a walker. We will continue physical therapist and occupational therapist evaluation and treatment. (5) Stage IV bladder cancer Assessment/Plan: Patient report he continues to have chemotherapy every other Julio by his central port. Has received 2 TURBTs. 4 cycles of chemotherapy. A cystectomy has been recommended and the patient has declined. 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 (6) Cognitive decline Assessment/Plan: Patient will have OT cognitive assessment, will followup. Today patient is clearly and orientated (7) DM w/o complication type II, uncontrolled Patient was prescribed Metformin by his oncologist per pharmacy. Last A1c was 8.4. today A1C is 8.5 pt request Metformin, pt's kidney function is imporoved. pharmacy state it is ok pt can have Metformin, continue Slide scale, continue Accu-Cheks before every meal and at bedtime, and hypoglycemia protocol. (8) Multiple skin tears Assessment/Plan: stable and improved. No infection indicated. These have been cleaned and dres sed. Anticipating healing over time. (9) Non-pressure ulcer of right lower extremity Assessment/Plan: stable, Cleaned and dressed without infection indicated. Patient to follow-up with wound care clinic as set up in the outpatient setting.
[2021-01-27] MEDS: metFORMIN 500 MG TABLET PO SCH ×2 (11:13→17:07)
[2021-01-27] MEDS: INSULIN GLARGINE 300 UNIT/3 ML PEN SUBQ SCH (20:56)
[2021-01-28] MEDS: SODIUM CHLORIDE FLUSH 0.9% 10 ML SYRINGE IVP SCH ×2 (00:39→07:52)
[2021-01-28] MEDS: SODIUM CHLORIDE 0.9% 1,000 ML IV SCH (02:48)
[2021-01-28 05:06] LABS: BASOPHILS # (AUTO) 0.1 10^3/uL (0.0-0.1); BASOPHILS % (AUTO) 0.7 %; EOSINOPHILS # (AUTO) 0.3 10^3/uL (0.0-0.7); EOSINOPHILS % (AUTO) 3.6 %; HCT - HEMATOCRIT 38.7 % (42.0-52.0); HGB - HEMOGLOBIN 12.3 g/dL (14.0-18.0); LYMPHOCYTES # (AUTO) 1.8 10^3/uL (1.5-3.5); LYMPHOCYTES % (AUTO) 24.3 %; MEAN CORPUSCULAR HEMOGLOBIN 30.8 pg (27.0-31.0); MEAN CORPUSCULAR HGB CONC 31.8 g/dL (32.0-36.0); MEAN PLATELET VOLUME 10.4 fL (7.4-11.4); MONOCYTES # (AUTO) 0.9 10^3/uL (0.0-1.0); MONOCYTES % (AUTO) 11.9 %; NEUTROPHILS # (AUTO) 4.3 10^3/uL (1.5-6.6); NEUTROPHILS % (AUTO) 58.2 %; PLT - PLATELET COUNT 195 10^3/uL (130-450); RED BLOOD COUNT 3.99 10^6/uL (4.70-6.10); RED CELL DISTRIBUTION WIDTH 13.2 % (12.0-15.0); WHITE BLOOD COUNT 7.4 x10^3/uL (4.8-10.8)
[2021-01-28 05:19] LABS: CREATININE 1.3 mg/dL (0.6-1.2); POTASSIUM 3.7 mmol/L (3.5-5.0)
[2021-01-28] MEDS: metFORMIN 500 MG TABLET PO SCH (07:51)
[2021-01-28] MEDS: MULTIVITAMIN W/MINERALS TABLET PO SCH (07:52)
[2021-01-28] MEDS ORDERED: hydroCHLOROthiazide 25 MG TABLET PO SCH ×2 (08:26→09:00)
[2021-01-28 08:52] VITALS: BP 158/88
[2021-01-28] MEDS ORDERED: ENOXAPARIN 40 MG/0.4 ML SYRINGE SUBQ SCH (09:00)
[2021-01-28] MEDS ORDERED: amLODIPine 5 MG TABLET PO SCH (09:00)
[2021-01-28] MEDS: INSULIN ASPART 300 UNIT/3 ML PEN SUBQ SCH ×2 (09:22→11:40)
--- NOTE | 2021-01-28 11:10 | Discharge Plan ---
Discharge Plan Problem Reviewed?: Yes Disposition: Home, Self Care Condition: Stable Prescriptions: amLODIPine [Norvasc] 5 mg PO DAILY #30 tablet Multivitamin W/Minerals [Theragran M] 1 tab PO DAILYWM #30 tablet Diet: Diabetic Activity Restrictions: Activity as Tolerated Shower Restrictions: No (fall precaution) Instruction Topics: Amlodipine, Injury Acute Kidney Dc, Dehydration Health Concerns: acute kidney injury, dehydration, diabetes Plan of Treatment: You clearly state you want to be d/c to home not SNF or nurse home. Your kidney function return your baseline now, you may keep hydration at home. Your home meds Lisinopril is hold for protection of your kidney function, instead you are prescribed new blood pressure medication Amlodipine. You may followup with your PCP continue management. Your A1C is 8.5 now. You want continue to keep your home medication Metformin not insulin, you may continue followup with your PCP for your diabetes management. Care Goals: stabilization and improvement of your medical conditions. Assessment: Discussed the care plan with you, answered your questions, you understood. Additional Instructions or Follow Up instructions: You may followup with your PCP in one to two weeks. Should your symptoms return or worsen, you may present ER or call 911 for help Follow-Up Care: Outpatient Rehab - PT No Smoking: If you smoke, Please STOP! Call for help. Follow-up with: Juliette Howard PA-C [Primary Care Provider] -
--- NOTE | 2021-01-28 11:21 | DISCHARGE SUMMARY ---
Discharge Summary Admit Date: 01/25/21 Discharge Date: 01/28/21 Discharging Provider: Onur Doe Primary Care Provider: Dr. Brooklyn Howard Condition at Discharge: Stable Discharge Disposition: 01 Home, Self Care Discharge Facility Name: home - DIAGNOSES Discharge Diagnoses with Status of Each Condition: (1) Acute metabolic encephalopathy resolved. pt is alert and oriented today (2) Acute prerenal failure resolved. pt's creatinine is 1.3 as his baseline. advise pt keep hydration at home (3) Dehydration resolved (4) Generalized weakness great improved. PT Evaluated and treated the patient, Patient declined to be discharged to SNF or nurse home. Patient also declined to have a walker, home health PT, Aide. After PT was treated in the hospital, PT believe patient can be safely discharged to the home. (5) Stage IV bladder cancer pt is followup with his oncologist to have chemotherapy now. advise pt continue to followup. (6) Cognitive decline stable. pt had OT evaluation. Pt scored a 19/30 on the SLUMS Examination. (7) DM w/o complication type II, uncontrolled pt's A1C is 8.5. pt demanded to resume his metformin in hospital. he declined to have insulin. resume home Metformin and followup with his PCP continue management of his diabetes. (8) Multiple skin tears stable and improved. No infection indicated. These have been cleaned and dressed. Anticipating healing over time. (9) Non-pressure ulcer of right lower extremity stable and improved. He will follow up with wound care clinic that is already been set up for him in the outpatient setting. - HPI History of Present Illness: refer from Dr. Duncan's HPI on 01/25/21 He has lost his after years of taking care of her with dementia. But he has had a family that has worked for him and had become friends with him for the last 13 years. They live in [place] and they come over to check on him regularly. While his son is in his life, he does not actively take care of his dad. In the last few months the patient decided that he wanted to move to [place] to be closer to his friends. He emptied his house and put things in storage. Moved in with his friends in [place]. He was only supposed to be for a couple of days until he closed on his house in [place] and bought the house in [place]. She is not clear what happened but that sale of his [place] house fell through. Which meant he could not purchase the [place] home. After a month and a half he returned back to his house in [place]. He has only been home for a week. When he lived with them for that month and a half, she describes him as eating well, alert, having energy. Sleeping well. They check on him regularly. They last saw him on January and they made arrangements to get together on Monday the to go to [place] together. He did not answer the phone on Monday the . And on the morning of the when he did not come to [place], the friends were alarmed and went to his house. They found him on the floor of his bathroom. He had apparently tried to get up that morning. Sat down on the toilet to go to the bathroom. Because of chronic back pain he was unable to get off the toilet and fell on the floor and could not get up. So he laid on the bathroom floor for a few hours. He did not want to go to the doctor or the hospital so they cleaned him up and put him back in bed Monday. This morning they got him up to feed him breakfast. He did not want to eat because his abdomen hurt. It just aches. He was very nauseated. When he tried to get up to go back to the bathroom again he was incontinent of stool. They cleaned him up and decided that they really needed to bring him to the emergency room. He is unable to give me much of a history. But his friend Lisbeth states that there is been no fever, chills. The upset stomach was only yesterday morning and today. No vomiting. No diarrhea. No sore throat. He had a recent nonpressure ulcer of his leg on the right lower dubon. About a month ago his legs were swollen. The skin broke. He was seen for lower extremity edema by Dr. Lema and sent to the wound clinic at [facility]. He was being seen at [place] [facility] and it only had one visit. He is in the midst of changing primary care providers. They state that it was getting too difficult to try to be seen in his current clinic on [address]. And as such he is about to have her make a new patient appointment with a new PCP at [facility]. He is also having memory loss. He walked into his primary care provider's office on January 19 without an appointment. Forgotten that he had had a previous appointment the week before. He is in the midst of trying to get his son removed his power of research attorney and from his well. But he is having difficulty doing so because of his diagnosis of dementia. There is an APS clerical investigator involved in his case. Radha Ramirez. Fax number [phone]. He was seen by Dr. Ley. She found him to have a temperature of 36.3, heart rate 87, respirations 18. Blood pressure 93/48. White cell count 17 with a hemoglobin of 13.3. BUN 82, creatinine 3.9. Random glucose 225. She did not do a CPK. No was there any imaging of his head.He was a lethargic elderly gentleman. With no focal deficits. This document was made in part using voice recognition software. While efforts are made to proofread this document, sound alike and grammatical errors may occur. - HOSPITAL COURSE Hospital Course: Patient was admitted for evaluation of mental status change. Patient was also found to have Severe dehydration with acute kidney injury, creatinine is 3.9, Generalized weakness. pt Was given intravenous IV fluids, patient had a physical therapist evaluation and treatment, patient was recommended to discharge to SNF. After treatment patient become orientated. Patient kidney function return his baseline. Patient did decline to discharge to SNF. After treatment in the hospital, patient's weakness had greatly improved. Patient want to be discharged to the home. The detailed hospital course please review discharge diagnosis summary. - ALLERGIES Allergies/Adverse Reactions: Allergies Allergy/AdvReac Type Severity Reaction Status Date / Time No Known Drug Allergies Allergy Verified 01/25/21 12:20 - MEDICATIONS Home Medications: Ambulatory Orders Medication Instructions Recorded Confirmed hydroCHLOROthiazide 25 mg PO DAILY 01/16/19 01/26/21 [Hydrochlorothiazide] Atorvastatin [Lipitor] 80 mg PO QPM #20 tablet 01/17/19 01/26/21 metFORMIN [Glucophage] 500 mg PO BID 01/27/21 01/27/21 Multivitamin W/Minerals [Theragran 1 tab PO DAILYWM #30 tablet 01/28/21 M] amLODIPine [Norvasc] 5 mg PO DAILY #30 tablet 01/28/21 - PHYSICAL EXAM AT DISCHARGE General Appearance: positive: No acute distress, Alert. negative: Lethargic Eyes Bilateral: positive: Normal inspection, PERRL, No lid inflammation ENT: positive: ENT inspection nml, No signs of dehydration. negative: Purulent nasal drainage Neck: positive: Nml inspection, Trachea midline. negative: Thyromegaly, Tracheal deviation Respiratory: positive: Chest non-tender, No respiratory distress. negative: Wheezes Cardiovascular: positive: Regular rate & rhythm, No murmur. negative: Tachycar bert, Bradycardia, Systolic murmur, Diastolic murmur Peripheral Pulses: positive: 2+ Abdomen: positive: Non-tender, Nml bowel sounds, No distention. negative: Tenderness, Guarding, Rebound Back: positive: Nml inspection Skin: positive: Color nml, Warm, Dry. negative: Cyanosis, Diaphoresis, Pallor Extremities: positive: Non-tender, Full ROM, Other (Skin tears on his anterior shins with the right leg and the left leg, are in the healing. Right posterior calf with a nonpressure ulcer that appears to be healing). negative: Pedal edema, Calf tenderness Neurologic/Psychiatric: positive: Motor nml, Sensation nml, Mood/affect nml. negative: Weakness, Sensory loss, Facial droop, Slurred/abnml speech, Depressed mood/affect - LABS Result Diagrams: 01/28/21 04:26 01/28/21 04:26 - FOLLOW UP Follow Up: You clearly state you want to be d/c to home not SNF or nurse home. Your kidney function return your baseline now, you may keep hydration at home. Your home meds Lisinopril is hold for protection of your kidney function, instead you are prescribed new blood pressure medication Amlodipine. You may followup with your PCP continue management. Your A1C is 8.5 now. You want continue to keep your home medication Metformin not insulin, you may continue followup with your PCP for your diabetes management. You may followup with your PCP in one to two weeks. Should your symptoms return or worsen, you may present ER or call 911 for help - TIME SPENT Time Spent in Discharge (Minutes): 30
== END 2021-01-28 14:00 | disposition home or self-care (01) | DRG 682 ==
LOC: ED 12:08 → MS2 14:34
PROVIDERS: ADMIT Specialist; ATTEND Nurse Practitioner Gerontology
DX: N17.9 Acute kidney failure, unspecified (principal); G93.41 Metabolic encephalopathy; C79.51 Secondary malignant neoplasm of bone; L97.911 Non-pressure chronic ulcer of unspecified part of right lower leg limited to breakdown of skin; E11.9 Type 2 diabetes mellitus without complications; E86.0 Dehydration; E11.65 Type 2 diabetes mellitus with hyperglycemia; R41.81 Age-related cognitive decline; Z20.822 Contact with and (suspected) exposure to COVID-19; I10 Essential (primary) hypertension; C67.9 Malignant neoplasm of bladder, unspecified; I69.30 Unspecified sequelae of cerebral infarction; E78.00 Pure hypercholesterolemia, unspecified; Z74.09 Other reduced mobility; G89.29 Other chronic pain; M54.9 Dorsalgia, unspecified; M19.90 Unspecified osteoarthritis, unspecified site; M10.9 Gout, unspecified; M72.0 Palmar fascial fibromatosis [Dupuytren]; N40.1 Benign prostatic hyperplasia with lower urinary tract symptoms; R35.0 Frequency of micturition; R35.1 Nocturia; Z91.19 Patient's noncompliance with other medical treatment and regimen; S81.812A Laceration without foreign body, left lower leg, initial encounter; S81.811A Laceration without foreign body, right lower leg, initial encounter; W18.11XA Fall from or off toilet without subsequent striking against object, initial encounter; Y92.012 Bathroom of single-family (private) house as the place of occurrence of the external cause; Z79.84 Long term (current) use of oral hypoglycemic drugs; Z79.899 Other long term (current) drug therapy
CPT/HCPCS: 36415; 71045; 76770; 80048; 80053; 81001; 82550; 83036; 83690; 85025; 87631; 93005; 97116; 97161; 97165; 97535; 99284; 99285; A9270; J1650; J1815; 0202U; 81003; 84484; 87086

== ENCOUNTER 2021-03-23 10:03 | Outpatient (CLI) | payer MEDICARE, OTHER | END 2021-03-23 10:04 | disposition EMS.NT | LOC: EMS 10:03 | DX: Z03.89 Encounter for observation for other suspected diseases and conditions ruled out (principal) ==

== ENCOUNTER 2021-03-24 10:19 | Outpatient (CLI) | payer MEDICARE, OTHER | END 2021-03-24 10:20 | disposition critical access hospital (66) | LOC: EMS 10:19 | DX: Z04.3 Encounter for examination and observation following other accident (principal) | CPT/HCPCS: A0425; A0429 ==

== ENCOUNTER 2021-03-24 10:37 | Emergency (ER) | payer MEDICARE, OTHER ==
--- NOTE | 2021-03-24 11:02 | XRAY Report ---
PROCEDURE: Chest 1 View X-Ray INDICATIONS: fever, weakness TECHNIQUE: One view of the chest was acquired. COMPARISON: 01/25/2021. FINDINGS: Surgical changes and devices: Right chest wall Port-A-Cath tip is in the region of SVC.. Lungs and pleura: No pleural effusions or pneumothorax. Lungs are clear. Mediastinum: Mediastinal contours appear normal. Heart size is mildly enlarged. Bones and chest wall: No suspicious bony lesions. Overlying soft tissues appear unremarkable. IMPRESSION: No acute cardiopulmonary pathology. Reviewed by: Osmani Burrell MD on 03/24/2021 11:00 AM PDT Approved by: Osmani Burrell MD on 03/24/2021 11:00 AM PDT Station ID: [id number]
[2021-03-24] MEDS ORDERED: ACETAMINOPHEN 325 MG TABLET PO STA (12:31)
[2021-03-24] MEDS ORDERED: SODIUM CHLORIDE 0.9% 1,000 ML IV STA ×2 (12:58→14:50)
[2021-03-24 13:03] LABS: BASOPHILS % (AUTO) 0.3 %; EOSINOPHILS % (AUTO) 0.3 %; HCT - HEMATOCRIT 39.8 % (42.0-52.0); HGB - HEMOGLOBIN 13.4 g/dL (14.0-18.0); LYMPHOCYTES # (AUTO) 1.5 10^3/uL (1.5-3.5); LYMPHOCYTES % (AUTO) 12.2 %; MEAN CORPUSCULAR HEMOGLOBIN 31.6 pg (27.0-31.0); MEAN CORPUSCULAR HGB CONC 33.7 g/dL (32.0-36.0); MEAN CORPUSCULAR VOLUME 93.9 fL (80.0-94.0); MEAN PLATELET VOLUME 9.4 fL (7.4-11.4); MONOCYTES # (AUTO) 1.2 10^3/uL (0.0-1.0); MONOCYTES % (AUTO) 9.8 %; NEUTROPHILS # (AUTO) 9.3 10^3/uL (1.5-6.6); NEUTROPHILS % (AUTO) 77.1 %; PLT - PLATELET COUNT 277 10^3/uL (130-450); RED BLOOD COUNT 4.24 10^6/uL (4.70-6.10); RED CELL DISTRIBUTION WIDTH 13.1 % (12.0-15.0)
[2021-03-24 13:15] LABS: ALBUMIN 3.3 g/dL (3.2-5.5); ALBUMIN/GLOBULIN RATIO 0.7 (1.0-2.2); BILIRUBIN,TOTAL 1.1 mg/dL (0.2-1.0); CALCIUM 8.8 mg/dL (8.5-10.3); POTASSIUM 3.8 mmol/L (3.5-5.0); TOTAL PROTEIN 8.3 g/dL (6.7-8.2)
--- NOTE | 2021-03-24 16:14 | ED Physician Documentation ---
History of Present Illness - Stated complaint Stated Complaint: GLF - Chief complaint Chief Complaint: General - History obtained from History obtained from: Patient - Additonal information Additional information: 85yM with pmh stage 4 bladder CA with port in place, chronic uti, dementia, DM2, presents after being found down when family came to pick him up for his covid shot today. he was incontinent of urine and stool and stated he fell yesterday and was unable to get up since that time. the patient lives alone with a cat. patient's son is concerned he may need placement. patient endorsed to Dr. Rivera for further management and care. Review of Systems Unable to obtain: Uncooperative PD PAST MEDICAL HISTORY - Past Medical History Cardiovascular: Hypertension, High cholesterol, Angina, Arrhythmia Respiratory: None Neuro: Dementia, CVA, TIA Endocrine/Autoimmune: Type 2 diabetes GI: GERD, Other : Benign prostate hypertrophy, Nocturia, Frequency, Kidney stones, Other HEENT: None Psych: Depression, Anxiety, Other Musculoskeletal: Osteoarthritis, Gout, Chronic back pain, Other Derm: None - Past Surgical History Past Surgical History: No General: Colonoscopy Ortho: Arthroscopic surgery, Other - Present Medications Home Medications: Ambulatory Orders Medication Instructions Recorded Confirmed hydroCHLOROthiazide 25 mg PO DAILY 01/16/19 01/26/21 [Hydrochlorothiazide] Atorvastatin [Lipitor] 80 mg PO QPM #20 tablet 01/17/19 01/26/21 metFORMIN [Glucophage] 500 mg PO BID 01/27/21 01/27/21 Multivitamin W/Minerals [Theragran 1 tab PO DAILYWM #30 tablet 01/28/21 M] amLODIPine [Norvasc] 5 mg PO DAILY #30 tablet 01/28/21 - Allergies Allergies/Adverse Reactions: Allergies Allergy/AdvReac Type Severity Reaction Status Date / Time No Known Drug Allergies Allergy Verified 03/24/21 10:47 - Social History Does the pt smoke?: No Smoking Status: Never smoker Does the pt drink ETOH?: No Does the pt have substance abuse?: No - Immunizations Immunizations are current?: Yes - POLST Patient has POLST: No PD ED PE NORMAL - Vitals Vital signs reviewed: Yes - General General: No acute distress, Well developed/nourished, Other (AOX2) - HEENT HEENT: Atraumatic, PERRL, EOMI - Neck Neck: Supple, no meningeal sign - Cardiac Cardiac: Other (tachycardic rate, irreg rhythm) - Respiratory Respiratory: No respiratory distress, Clear bilaterally - Abdomen Abdomen: Non tender, Non distended, Other (discomfort and fullness to suprapubic palpation) - Derm Derm: Normal color - Extremities Extremities: No deformity - Neuro Neuro: No motor deficit, No sensory deficit - Psych Psych: Normal mood, Normal affect Results - Vitals Vitals: Vital Signs - 24 hr 03/24/21 03/24/21 03/24/21 10:47 12:56 14:12 Temperature 37.9 C 36.6 C Heart Rate 110 H 106 H 110 H Respiratory 15 24 25 H Rate Blood Pressure 146/113 H 147/96 H 148/102 H O2 Saturation 100 100 100 03/24/21 03/24/21 03/24/21 16:06 18:46 20:00 Temperature 36.3 C L 36.3 C L Heart Rate 89 98 91 Respiratory 20 24 22 Rate Blood Pressure 140/98 H 164/99 H 155/91 H O2 Saturation 98 100 100 03/24/21 03/25/21 03/25/21 22:40 00:00 02:00 Temperature 36.6 C 36.6 C 36.5 C Heart Rate 76 71 72 Respiratory 20 19 16 Rate Blood Pressure 155/105 H 152/91 H 155/98 H O2 Saturation 97 97 98 Oxygen O2 Source Room air - Labs Labs: Laboratory Tests 03/24/21 03/24/21 03/24/21 12:50 12:50 12:50 WBC 12.0 H RBC 4.24 L Hgb 13.4 L Hct 39.8 L MCV 93.9 MCH 31.6 H MCHC 33.7 RDW 13.1 Plt Count 277 MPV 9.4 Neut # (Auto) 9.3 H Lymph # (Auto) 1.5 [place] # (Auto) 1.2 H Eos # (Auto) 0.0 Baso # (Auto) 0.0 Absolute Nucleated RBC 0.00 Nucleated RBC % 0.0 Sodium 133 L Potassium 3.8 Chloride 98 L Carbon Dioxide 25 Anion Gap 10.0 BUN 16 Creatinine 1.0 Estimated GFR (MDRD) 71 L Glucose 192 H Lactic Acid 1.3 Calcium 8.8 Total Bilirubin 1.1 H AST 15 ALT 14 Alkaline Phosphatase 86 Total Creatine Kinase Total Protein 8.3 H Albumin 3.3 Globulin 5.0 H Albumin/Globulin Ratio 0.7 L Lipase 20 L Urine Color Urine Clarity Urine pH Ur Specific [place] Urine Protein Urine Glucose (UA) Urine Ketones Urine Occult Blood Urine Nitrite Urine Bilirubin Urine Urobilinogen Ur Leukocyte Esterase Urine RBC Urine WBC Ur Squamous Epith Cells Urine Bacteria Urine Culture Comments Nasal Adenovirus (PCR) Nasal B. parapertussis DNA (PCR) Nasal Coronavir 229E PCR Nasal Coronavir HKU1 PCR Nasal Coronavir NL63 PCR Nasal Coronavir OC43 PCR Nasal Enterovir/Rhinovir PCR Nasal Influenza B PCR Nasal Influenza A PCR Nasal Parainfluen 1 PCR Nasal Parainfluen 2 PCR Nasal Parainfluen 3 PCR Nasal Parainfluen 4 PCR Nasal RSV (PCR) Nasal B.pertussis DNA PCR Nasal C.pneumoniae (PCR) Ludin Human Metapneumo PCR Nasal M.pneumoniae (PCR) Nasal SARS-CoV-2 (PCR) 03/24/21 03/24/21 03/24/21 12:50 16:05 16:35 WBC RBC Hgb Hct MCV MCH MCHC RDW Plt Count MPV Neut # (Auto) Lymph # (Auto) [place] # (Auto) Eos # (Auto) Baso # (Auto) Absolute Nucleated RBC Nucleated RBC % Sodium Potassium Chloride Carbon Dioxide Anion Gap BUN Creatinine Estimated GFR (MDRD) Glucose Lactic Acid Calcium Total Bilirubin AST ALT Alkaline Phosphatase Total Creatine Kinase 163 Total Protein Albumin Globulin Albumin/Globulin Ratio Lipase Urine Color YELLOW Urine Clarity CLEAR Urine pH 6.5 Ur Specific [place] 1.015 Urine Protein NEGATIVE Urine Glucose (UA) 250 H Urine Ketones NEGATIVE Urine Occult Blood TRACE-INTA Urine Nitrite NEGATIVE Urine Bilirubin NEGATIVE Urine Urobilinogen 0.2 (NORMAL) Ur Leukocyte Esterase NEGATIVE Urine RBC 0-5 Urine WBC 0-3 Ur Squamous Epith Cells NONE SEEN Urine Bacteria None Seen Urine Culture Comments NOT INDICATED Nasal Adenovirus (PCR) NOT DETECTED Nasal B. parapertussis DNA (PCR) NOT DETECTED Nasal Coronavir 229E PCR NOT DETECTED Nasal Coronavir HKU1 PCR NOT DETECTED Nasal Coronavir NL63 PCR NOT DETECTED Nasal Coronavir OC43 PCR NOT DETECTED Nasal Enterovir/Rhinovir PCR NOT DETECTED Nasal Influenza B PCR NOT DETECTED Nasal Influenza A PCR NOT DETECTED Nasal Parainfluen 1 PCR NOT DETECTED Nasal Parainfluen 2 PCR NOT DETECTED Nasal Parainfluen 3 PCR NOT DETECTED Nasal Parainfluen 4 PCR NOT DETECTED Nasal RSV (PCR) NOT DETECTED Nasal B.pertussis DNA PCR NOT DETECTED Nasal C.pneumoniae (PCR) NOT DETECTED Ludin Human Metapneumo PCR NOT DETECTED Nasal M.pneumoniae (PCR) NOT DETECTED Nasal SARS-CoV-2 (PCR) NOT DETECTED PD MEDICAL DECISION MAKING - ED course ED course: Patient with likely uti. he is unable to urinate with bladder scan showing 600cc. refusing stewart. d/w Dr Graf for possible admission. he will see the patient.
[2021-03-24 16:57] LABS: BILIRUBIN,URINE NEGATIVE (NEGATIVE); GLUCOSE, URINE (UA) 250 mg/dL (NEGATIVE); KETONES,URINE (UA) NEGATIVE (NEGATIVE); LEUKOCYTE ESTERASE, URINE NEGATIVE (NEGATIVE); NITRITE,URINE NEGATIVE (NEGATIVE); OCCULT BLOOD,URINE TRACE-INTA (NEGATIVE); PH,URINE 6.5 PH (5.0-7.5); PROTEIN,URINE NEGATIVE (NEGATIVE); UROBILINOGEN,URINE 0.2 (NORMAL) E.U./dL (NORMAL)
[2021-03-24 16:58] LABS: CLARITY,URINE CLEAR (CLEAR)
[2021-03-24 17:06] LABS: BACTERIA,URINE None Seen /HPF (None Seen); RBC,URINE 0-5 /HPF (0-5); SQUAMOUS EPITHELIAL CELL,UR NONE SEEN (<= Few); WBC,URINE 0-3 /HPF (0-3)
[2021-03-24 17:59] LABS: B. PARAPERTUSSIS- RESP PCR PAN NOT DETECTED; B. PERTUSSIS- RESP PCR PANEL NOT DETECTED; C. PNEUMONIAE- RESP PCR PANEL NOT DETECTED; CORONAVIRUS 229E-RESP PCR NOT DETECTED; CORONAVIRUS HKU1-RESP PCR NOT DETECTED; CORONAVIRUS NL63-RESP PCR NOT DETECTED; CORONAVIRUS OC43-RESP PCR NOT DETECTED; HUMAN METAPNEUMOVIRUS NOT DETECTED; INFLUENZA A- RESP PCR PANEL NOT DETECTED; INFLUENZA B - RESP PCR PANEL NOT DETECTED; M. PNEUMONIAE- RESP PCR PANEL NOT DETECTED; PARAINFLUENZA VIRUS 1 NOT DETECTED; PARAINFLUENZA VIRUS 2 NOT DETECTED; PARAINFLUENZA VIRUS 3 NOT DETECTED; PARAINFLUENZA VIRUS 4 NOT DETECTED; RHINOVIRUS/ENTEROVIRUS NOT DETECTED; RSV- RESP PCR PANEL NOT DETECTED; SARS-CoV-2 -RESP PCR PANEL NOT DETECTED
[2021-03-25 16:46] VITALS: BP 148/88
== END 2021-03-25 12:33 | disposition home or self-care (01) ==
LOC: EDUNIT# → ED 10:37
DX: R53.81 Other malaise (principal); R33.9 Retention of urine, unspecified; F03.90 Unspecified dementia, unspecified severity, without behavioral disturbance, psychotic disturbance, mood disturbance, and anxiety; C67.9 Malignant neoplasm of bladder, unspecified; E11.9 Type 2 diabetes mellitus without complications; I10 Essential (primary) hypertension; E78.00 Pure hypercholesterolemia, unspecified; N40.1 Benign prostatic hyperplasia with lower urinary tract symptoms; R35.0 Frequency of micturition; R35.1 Nocturia; Z74.09 Other reduced mobility; Z20.822 Contact with and (suspected) exposure to COVID-19; Z79.84 Long term (current) use of oral hypoglycemic drugs; Z79.899 Other long term (current) drug therapy; Z91.81 History of falling; Z86.73 Personal history of transient ischemic attack (TIA), and cerebral infarction without residual deficits; Z87.440 Personal history of urinary (tract) infections
CPT/HCPCS: 36415; 71045; 80053; 81001; 82550; 83605; 83690; 85025; 87040; 87631; 93005; 96360; 96361; 99281; 99285; A9270; 0202U; 87086

== ENCOUNTER 2021-04-14 01:53 | Outpatient (CLI) | payer MEDICARE, OTHER | END 2021-04-14 01:54 | disposition short-term general hospital (02) | LOC: EMS 01:53 | DX: R07.9 Chest pain, unspecified (principal) | CPT/HCPCS: A0425; A0429 ==

== ENCOUNTER 2021-06-11 06:06 | Outpatient (CLI) | payer MEDICARE, OTHER | END 2021-06-11 06:07 | disposition critical access hospital (66) | LOC: EMS 06:06 | DX: R55 Syncope and collapse (principal); R40.4 Transient alteration of awareness | CPT/HCPCS: A0425; A0427 ==

== ENCOUNTER 2021-06-11 06:22 | Inpatient (IN) | payer MEDICARE, OTHER ==
[2021-06-11] MEDS ORDERED: SODIUM CHLORIDE 0.9% 1,000 ML IV STA ×2 (06:31→07:36)
--- NOTE | 2021-06-11 06:34 | ED Physician Documentation ---
History of Present Illness - Stated complaint Stated Complaint: SYNCOPE - History obtained from History obtained from: EMS - Additonal information Additional information: Patient is brought to the emergency department by EMS for chief complaint of syncopal episode. The patient was in the process of being gotten up from a supine position by nursing staff and assistance at his longterm facility, when upon reaching standing position he had a syncopal episode. He did not fall to the floor as he was being held up and instead was lowered gently to his knees and then put back on his bed. He had no complaints before or after. EMS was summoned and they gave him 250 cc of 0.9 normal saline in route. The patient was found to be somewhat hypotensive with a systolic in the 80s. Review of Systems Unable to obtain: Dementia PD PAST MEDICAL HISTORY - Past Medical History Cardiovascular: Hypertension, High cholesterol, Angina, Arrhythmia Respiratory: None Neuro: Dementia, CVA, TIA Endocrine/Autoimmune: Type 2 diabetes GI: GERD, Other : Benign prostate hypertrophy, Nocturia, Frequency, Kidney stones, Other HEENT: None Psych: Depression, Anxiety, Other Musculoskeletal: Osteoarthritis, Gout, Chronic back pain, Other Derm: None - Past Surgical History Past Surgical History: No General: Colonoscopy Ortho: Arthroscopic surgery, Other - Present Medications Home Medications: Ambulatory Orders Medication Instructions Recorded Confirmed hydroCHLOROthiazide 25 mg PO DAILY 01/16/19 01/26/21 [Hydrochlorothiazide] Atorvastatin [Lipitor] 80 mg PO QPM #20 tablet 01/17/19 01/26/21 metFORMIN [Glucophage] 500 mg PO BID 01/27/21 01/27/21 Multivitamin W/Minerals [Theragran 1 tab PO DAILYWM #30 tablet 01/28/21 M] amLODIPine [Norvasc] 5 mg PO DAILY #30 tablet 01/28/21 Atorvastatin Calcium [Lipitor] 80 mg PO QPM #30 tablet 03/25/21 amLODIPine [Norvasc] 5 mg PO DAILY #30 tablet 03/25/21 hydroCHLOROthiazide 25 mg PO DAILY #30 tablet 03/25/21 [Hydrochlorothiazide] metFORMIN [Glucophage] 500 mg PO BIDWM #60 tablet 03/25/21 - Allergies Allergies/Adverse Reactions: Allergies Allergy/AdvReac Type Severity Reaction Status Date / Time No Known Drug Allergies Allergy Verified 03/24/21 10:47 - Social History Does the pt smoke?: No Smoking Status: Never smoker Does the pt drink ETOH?: No Does the pt have substance abuse?: No - Immunizations Immunizations are current?: Yes - POLST Patient has POLST: No PD ED PE NORMAL - Vitals Vital signs reviewed: Yes - General General: No acute distress, Other (Patient is awake and responds to name.) - HEENT HEENT: Atraumatic, PERRL, EOMI, Moist mucous membranes - Neck Neck: Supple, no meningeal sign - Cardiac Cardiac: RRR, No murmur - Respiratory Respiratory: No respiratory distress, Clear bilaterally - Abdomen Abdomen: Soft, Non tender, Non distended - Derm Derm: Normal color, No rash, Other (Cool skin, dry) - Extremities Extremities: No deformity, No edema - Neuro Neuro: Other (No gross focal deficits. Patient is awake and oriented to self.) - Psych Psych: Normal mood, Normal affect Results - Vitals Vitals: Oxygen O2 Source Room air PD MEDICAL DECISION MAKING - ED course ED course: Patient was continued on IV fluid bolus, andworked up with labs, EKG, and urinalysis. These are pending at this time. He was signed out to Dr. Plasencia at change of shift, pending results and final disposition.
[2021-06-11 07:17] LABS: BASOPHILS % (AUTO) 0.2 %; HCT - HEMATOCRIT 29.6 % (42.0-52.0); HGB - HEMOGLOBIN 8.4 g/dL (14.0-18.0); LYMPHOCYTES # (AUTO) 1.9 10^3/uL (1.5-3.5); LYMPHOCYTES % (AUTO) 15.4 %; MEAN CORPUSCULAR HEMOGLOBIN 29.5 pg (27.0-31.0); MEAN CORPUSCULAR HGB CONC 28.4 g/dL (32.0-36.0); MEAN CORPUSCULAR VOLUME 103.9 fL (80.0-94.0); MEAN PLATELET VOLUME 8.7 fL (7.4-11.4); MONOCYTES % (AUTO) 8.3 %; NEUTROPHILS # (AUTO) 8.8 10^3/uL (1.5-6.6); NEUTROPHILS % (AUTO) 71.5 %; PLT - PLATELET COUNT 291 10^3/uL (130-450); RED BLOOD COUNT 2.85 10^6/uL (4.70-6.10); RED CELL DISTRIBUTION WIDTH 14.3 % (12.0-15.0); WHITE BLOOD COUNT 12.3 x10^3/uL (4.8-10.8)
[2021-06-11] MEDS ORDERED: MAGNESIUM SULFATE 2 GRAM 2 GM/50 ML BAG IV ONE (07:40)
[2021-06-11] MEDS ORDERED: CALCIUM GLUCONATE 2,000 MG in SODIUM CHLORIDE 0.9% 100ML 100 ML IV STA (07:41)
[2021-06-11] MEDS ORDERED: INSULIN REGULAR HUMAN 100 UNIT/1 ML 10 ML MDV SUBQ STA (07:41)
[2021-06-11] MEDS ORDERED: DEXTROSE 50% ABBOJECT 25 GM/50 ML SYRINGE IVP STA (07:41)
[2021-06-11 07:51] LABS: ALBUMIN 2.3 g/dL (3.2-5.5); ALBUMIN/GLOBULIN RATIO 0.5 (1.0-2.2); ALKALINE PHOSPHATASE 87 IU/L (42-121); ALT ALANINE AMINOTRANSFERASE 10 IU/L (10-60); AST ASPARTATE AMINOTRANSFERASE 12 IU/L (10-42); CALCIUM 7.8 mg/dL (8.5-10.3); CHLORIDE 103 mmol/L (101-111); GFR - MDRD 4 (>89); GLUCOSE 137 mg/dL (70-100); LIPASE 30 U/L (22-51); POTASSIUM 8.4 mmol/L (3.5-5.0); SODIUM 139 mmol/L (135-145); TOTAL PROTEIN 6.9 g/dL (6.7-8.2)
[2021-06-11 07:52] LABS: BUN - BLOOD UREA NITROGEN 150 mg/dL (6-20); CARBON DIOXIDE - CO2 < 6 mmol/L (21-32); CREATININE 11.5 mg/dL (0.6-1.2)
--- NOTE | 2021-06-11 08:07 | ED Physician Documentation ---
History of Present Illness - Stated complaint Stated Complaint: SYNCOPE - Chief complaint Chief Complaint: Neuro - History obtained from History obtained from: EMS, Other (Dr. Ley) - History of Present Illness Pain level max: 0 Pain level now: 0 - Additonal information Additional information: Patient is an 85-year-old male who presents to the emergency department today via EMS. Initial history from Dr. Ley. Patient is unable to give much history. Review of Systems Unable to obtain: Confused, Dementia PD PAST MEDICAL HISTORY - Past Medical History Cardiovascular: Hypertension, High cholesterol, Angina, Arrhythmia Respiratory: None Neuro: Dementia, CVA, TIA Endocrine/Autoimmune: Type 2 diabetes GI: GERD, Other : Benign prostate hypertrophy, Nocturia, Frequency, Kidney stones, Other HEENT: None Psych: Depression, Anxiety, Other Musculoskeletal: Osteoarthritis, Gout, Chronic back pain, Other Derm: None - Past Surgical History Past Surgical History: No General: Colonoscopy Ortho: Arthroscopic surgery, Other - Present Medications Home Medications: Ambulatory Orders Medication Instructions Recorded Confirmed hydroCHLOROthiazide 25 mg PO DAILY #30 tablet 03/25/21 [Hydrochlorothiazide] metFORMIN [Glucophage] 500 mg PO BIDWM #60 tablet 03/25/21 Atorvastatin Calcium 40 mg PO DAILY 06/11/21 06/11/21 LORazepam [Lorazepam] 2 mg PO 06/11/21 Loperamide HCl [Imodium A-D] 2 mg PO 06/11/21 06/11/21 Quetiapine Fumarate [Seroquel] 50 mg PO 06/11/21 carvediloL [Coreg] 12.5 mg PO BID 06/11/21 06/11/21 - Allergies Allergies/Adverse Reactions: Allergies Allergy/AdvReac Type Severity Reaction Status Date / Time No Known Drug Allergies Allergy Verified 06/11/21 06:39 - Social History Does the pt smoke?: No Smoking Status: Never smoker Does the pt drink ETOH?: No Does the pt have substance abuse?: No - Immunizations Immunizations are current?: Yes - POLST Patient has POLST: No PD ED PE NORMAL - Vitals Vital signs reviewed: Yes - General General: Other (Drowsy but arousable, oriented to person only.) - HEENT HEENT: Other (Dry lips and tongue) - Cardiac Cardiac: RRR - Respiratory Respiratory: No respiratory distress, Clear bilaterally - Abdomen Abdomen: Soft, Non tender, Non distended - Back Back: No CVA TTP - Derm Derm: Other (Cool, dry) - Extremities Extremities: No calf tenderness / cord - Neuro Neuro: Other (Drowsy but arousable) Results - Vitals Vitals: Vital Signs - 24 hr 06/11/21 06/11/21 06/11/21 06:30 07:17 07:19 Temperature 36.8 C Heart Rate 55 L 52 L 52 L Respiratory 27 H 16 22 Rate Blood Pressure 79/39 L 66/45 L 71/48 L O2 Saturation 97 96 95 06/11/21 06/11/21 06/11/21 07:30 07:45 08:00 Temperature Heart Rate 52 L 69 50 L Respiratory 18 22 17 Rate Blood Pressure 65/42 L 62/50 L 67/43 L O2 Saturation 100 98 97 06/11/21 08:15 Temperature Heart Rate 72 Respiratory 17 Rate Blood Pressure 70/38 L O2 Saturation 95 Oxygen O2 Source Nasal cannula Oxygen Flow Rate 4 - EKG (time done) 0632 Rate: Rate (enter#) (55) Mather: Normal Intervals: Wide QRS Ischemia: Other (peaked t waves) - Labs Labs: Laboratory Tests 06/11/21 06/11/21 06/11/21 07:12 07:12 07:12 WBC 12.3 H RBC 2.85 L Hgb 8.4 L Hct 29.6 L MCV 103.9 H MCH 29.5 MCHC 28.4 L RDW 14.3 Plt Count 291 MPV 8.7 Neut # (Auto) 8.8 H Lymph # (Auto) 1.9 [place] # (Auto) 1.0 Eos # (Auto) 0.0 Baso # (Auto) 0.0 Absolute Nucleated RBC 0.00 Nucleated RBC % 0.0 Manual Slide Review Indicated WBC Morphology NORMAL APPEARANCE Platelet Estimate NORMAL (130-450,000) Platelet Morphology NORMAL APPEARANCE RBC Morph Micro Appear 1+ MACROCYTOSIS Sodium 139 Potassium 8.4 H* Chloride 103 Carbon Dioxide < 6 L* Anion Gap 32.0 H BUN 150 H* Creatinine 11.5 H* Estimated GFR (MDRD) 4 L Glucose 137 H Lactic Acid Calcium 7.8 L Total Bilirubin 1.0 AST 12 ALT 10 Alkaline Phosphatase 87 Troponin I High Sens 9.0 B-Natriuretic Peptide Total Protein 6.9 Albumin 2.3 L Globulin 4.6 H Albumin/Globulin Ratio 0.5 L Lipase 30 Nasal Adenovirus (PCR) Nasal B. parapertussis DNA (PCR) Nasal Coronavir 229E PCR Nasal Coronavir HKU1 PCR Nasal Coronavir NL63 PCR Nasal Coronavir OC43 PCR Nasal Enterovir/Rhinovir PCR Nasal Influenza B PCR Nasal Influenza A PCR Nasal Parainfluen 1 PCR Nasal Parainfluen 2 PCR Nasal Parainfluen 3 PCR Nasal Parainfluen 4 PCR Nasal RSV (PCR) Nasal B.pertussis DNA PCR Nasal C.pneumoniae (PCR) Ludin Human Metapneumo PCR Nasal M.pneumoniae (PCR) Nasal SARS-CoV-2 (PCR) 06/11/21 06/11/21 06/11/21 07:12 07:16 08:27 WBC RBC Hgb Hct MCV MCH MCHC RDW Plt Count MPV Neut # (Auto) Lymph # (Auto) [place] # (Auto) Eos # (Auto) Baso # (Auto) Absolute Nucleated RBC Nucleated RBC % Manual Slide Review WBC Morphology Platelet Estimate Platelet Morphology RBC Morph Micro Appear Sodium Potassium Chloride Carbon Dioxide Anion Gap BUN Creatinine Estimated GFR (MDRD) Glucose Lactic Acid 7.9 H* Calcium Total Bilirubin AST ALT Alkaline Phosphatase Troponin I High Sens B-Natriuretic Peptide 156 H Total Protein Albumin Globulin Albumin/Globulin Ratio Lipase Nasal Adenovirus (PCR) NOT DETECTED Nasal B. parapertussis DNA (PCR) NOT DETECTED Nasal Coronavir 229E PCR NOT DETECTED Nasal Coronavir HKU1 PCR NOT DETECTED Nasal Coronavir NL63 PCR NOT DETECTED Nasal Coronavir OC43 PCR NOT DETECTED Nasal Enterovir/Rhinovir PCR NOT DETECTED Nasal Influenza B PCR NOT DETECTED Nasal Influenza A PCR NOT DETECTED Nasal Parainfluen 1 PCR NOT DETECTED Nasal Parainfluen 2 PCR NOT DETECTED Nasal Parainfluen 3 PCR NOT DETECTED Nasal Parainfluen 4 PCR NOT DETECTED Nasal RSV (PCR) NOT DETECTED Nasal B.pertussis DNA PCR NOT DETECTED Nasal C.pneumoniae (PCR) NOT DETECTED Ludin Human Metapneumo PCR NOT DETECTED Nasal M.pneumoniae (PCR) NOT DETECTED Nasal SARS-CoV-2 (PCR) NOT DETECTED - Rads (name of study) Chest x-ray Radiology: Final report received, EMP read contemporaneously, See rad report (Right-sided port. No acute abnormality.) PD MEDICAL DECISION MAKING - ED course Complexity details: reviewed results, re-evaluated patient, considered differential, d/w family, d/w media sales consultant ED course: Patient is an 85-year-old male who presents to the emergency department with hypotension and near syncope today. He is found to be in renal failure, uremic, hyperkalemic. He is anemic as well, about a 5 g hemoglobin drop from his last lab here a few months ago. Severe lactic acidosis. Blood cultures drawn. Antibiotics given. Patient does have an advanced directive that states he does not want long-term life support. I discussed with his POA, son, Anibal who is currently in [place], he confirms that his father would not want dialysis and would not want CPR. The goal of treatment is mainly comfort, we will see if we can correct his electrolytes with IV fluids, antibiotics and calcium, insulin, glucose. Discussed the case with Dr. Duncan, hospitalist who accepts This document was made in part using voice recognition software. While efforts are made to proofread this document, sound alike and grammatical errors may occur. Departure - Departure Disposition: 66 [facility] DC/Xfer Clinical Impression: Uremia, Lactic acidosis, Dehydration, Hyperkalemia, Stage IV bladder cancer, DNR (do not resuscitate) Acute renal failure Qualifiers: Acute renal failure type: unspecified Qualified Code(s): N17.9 - Acute kidney failure, unspecified Sepsis Qualifiers: Sepsis type: sepsis due to unspecified organism Sepsis acute organ dysfunction status: with acute organ dysfunction Severe sepsis acute organ dysfunction type: unspecified Severe sepsis shock status: unspecified Qualified Code(s): A41.9 - Sepsis, unspecified organism; R65.20 - Severe sepsis without septic shock Condition: Serious Discharge Date/Time: 06/11/21 09:17
[2021-06-11 08:10] LABS: PLATELET ESTIMATE, MANUAL NORMAL (130-450,000) (NORMAL); PLATELET MORPHOLOGY NORMAL APPEARANCE (NORMAL); SLIDE REVIEW? Indicated; WBC MORPHOLOGY (MULTIPLE) NORMAL APPEARANCE (NORMAL)
[2021-06-11] MEDS ORDERED: HYDROmorphone 0.5 MG/0.5 ML SYRINGE IVP PRN (08:28)
[2021-06-11] MEDS ORDERED: oxyCODONE 5 MG TABLET PO PRN (08:28)
[2021-06-11] MEDS ORDERED: ACETAMINOPHEN 325 MG TABLET PO PRN (08:28)
[2021-06-11] MEDS ORDERED: ONDANSETRON ODT 4 MG TABLET TL PRN (08:28)
[2021-06-11] MEDS ORDERED: ONDANSETRON 4 MG/2 ML VIAL IVP PRN (08:28)
[2021-06-11] MEDS ORDERED: SODIUM CHLORIDE FLUSH 0.9% 10 ML SYRINGE IVP PRN (08:28)
[2021-06-11] MEDS ORDERED: PIPERACILLIN/TAZOBACTAM 3.375 GM in SODIUM CHLORIDE 0.9% MINIBAG 100 ML IV STA (08:28)
--- NOTE | 2021-06-11 08:32 | HISTORY & PHYSICAL EXAMINATION ---
History of Present Illness - Admitted From Admitted From:: [facility] - History Obtained From Records Reviewed: [facility] History obtained from: Dr. Plasencia Exam Limitations: Patient is obtunded and confused - History of Present Illness HPI Comment/Other: I first met this patient in 2016. He was admitted for chest pain. At that time his main concern was taking care of his elderly demented . It was most likely angina but [place] was ruled out. We then met him again in January 2021. At by that time his had . There seems to be some family dynamics that were not working. He was moving back and forth between [place] and his home in [place] with close family friends from [facility]. He was estranged from his son. There was an APS referral. He was discharged to home After treatment for dehydration. He refused to go to a care home facility. He then returned March 24 to the emergency room, clearly unable to take care of himself. He was placed at [facility] from the emergency room and transferred there. Ambulance was called April 14 for chest pain, respiratory distress, and he was transferred to [facility]. He now returns to us with syncope. There is no clear description of his previous status. The residential is at change of shift and unable to give us a report. We do not know if he was feeling or doing well. He has a past medical history of coronary artery disease, congestive heart failure, stage IV bladder cancer. Diabetes. Dementia that has been worsening over time. They tried to get him up this morning and when they finally stood him up from bed, he passed out. He did not fall. There is no blow to the head. There were care providers on either side that gently laid him back on the bed and EMS was called. He was hypotensive in the 80s in the field and he was given a fluid bolus. He was initially seen by Dr. Ley at her change of shift. Temperature was 36.8. Pulse 55. Blood pressure 79/39. Respirations 27. 97% on room air. She started a fluid bolus on him and changed over to the care of Dr. Zane Rivera. He is confused, lethargic. He has a potassium of 8.4. Carbon dioxide less than 6. BUN 150. Creatinine 11.5. Lactic acid 7.9. BNP 156. Troponin IX. White cell count is 12.3. Hemoglobin 8.4. Covid negative. Chest x-ray has been done and the initial preliminary report is without pneumonia. Dr. Rivera's clinical suspicion is that of severe dehydration with renal fail ure. At this time he does not think he is infected but the patient is unable to provide us with a urinalysis. As such he is asking us to admit the patient for hydration, empiric antibiotic therapy. Dr. Plasencia has already made contact with the patient's son who is on vacation in [place]. The son is asking us to focus on more comfort measures and not aggressive procedural intervention. He is a DO NOT RESUSCITATE. History - Past Medical History Cardiovascular: reports: Hypertension, High cholesterol, Angina, Arrhythmia Respiratory: reports: None Neuro: reports: Dementia, CVA, TIA Endocrine/Autoimmune: reports: Type 2 diabetes GI: reports: GERD, Other : reports: Benign prostate hypertrophy, Nocturia, Frequency, Kidney stones, Other HEENT: reports: None Psych: reports: Depression, Anxiety, Other Musculoskeletal: reports: Osteoarthritis, Gout, Chronic back pain, Other Derm: reports: None MRSA Hx?: No - Past Surgical History General: reports: Colonoscopy Ortho: reports: Arthroscopic surgery, Other - Family & Social History Family History Comment/Other: Brother had diabetes and Campbell's esophagus Living Situation: Alone Social History Notes: Patient was raised on the [facility] and went to college in [facility], he left school to join 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 Upon jail he and his moved to [facility]. They lived in [place] and the patient was the primary (sole) caregiver to his who had progressively worsening dementia. He dressed, bathed, and fed his daily. She did not recognize him or her son.She was moved to memory care unit in 2017. She a couple of years ago. He has been alone since. His current friends describe his son is not really part of his life. - Substance History Use: Uses substance without health or social issues: NONE - POLST Patient has POLST: No Meds/Allgy - Home Medications Home Medications: Ambulatory Orders Medication Instructions Recorded Confirmed hydroCHLOROthiazide 25 mg PO DAILY #30 tablet 03/25/21 [Hydrochlorothiazide] metFORMIN [Glucophage] 500 mg PO BIDWM #60 tablet 03/25/21 Atorvastatin Calcium 40 mg PO DAILY 06/11/21 06/11/21 LORazepam [Lorazepam] 2 mg PO 06/11/21 Loperamide HCl [Imodium A-D] 2 mg PO 06/11/21 06/11/21 Quetiapine Fumarate [Seroquel] 50 mg PO 06/11/21 carvediloL [Coreg] 12.5 mg PO BID 06/11/21 06/11/21 - Allergies Allergies/Adverse Reactions: Allergies Allergy/AdvReac Type Severity Reaction Status Date / Time No Known Drug Allergies Allergy Verified 06/11/21 06:39 Prior Level of Functionality: According to care home facility staff, gradually failing. Not eating or drinking very much over the last few weeks but over the last few days sharply reduced p.o. intake. Less and less mobile and not getting out of the bed. He needs complete assist with all activities of daily living and uses a walker or wheelchair. He has been mainly bedbound for the last few days Exam - Vital Signs Reviewed Vital Signs: Yes Vital Signs: Vital Signs x48h Temp Pulse Resp BP Pulse Ox 06/11/21 06:30 36.8 C 55 L 27 H 79/39 L 97 - Physical Exam General Appearance: positive: Lethargic, Other (Responsive to sternal rub and that he opens his eyes, but otherwise slack face, sonorous respiration, no spontaneous movement) Eyes Bilateral: positive: PERRL, EOMI ENT: positive: Dry mucous membranes Neck: positive: No JVD. negative: Stiff neck Respiratory: positive: No respiratory distress, Rhonchi (snoring respiration). negative: Wheezes, Rales Cardiovascular: positive: Regular rate & rhythm, Systolic murmur. negative: Gallop/S4, Friction rub Peripheral Pulses: positive: 0 Abdomen: positive: No organomegaly, Other (Mild to moderate distention, very hypoactive bowel sounds. But no tenderness manifested. He is not grimacing or withdrawing to my deep palpation.) Skin: positive: Other (Chest wall is cyanotic, hands, feet, knees, elbows are cyanotic. Limbs are very very cold.) Extremities: positive: Full ROM (On passive range of motion. There is no spontaneous range of motion.), Pedal edema Neurologic/Psychiatric: positive: Other (Opens eyes to sternal rub, maybe once to voice. No spontaneous movement. No verbalization.) Conclusion/Plan - Problem List (1) Metabolic encephalopathy Conclusion/Plan: have to establish his baseline but his dementia has been progressing. By description of the care home facility, he has been failing over the last few weeks. Metabolic encephalopathy at this time is most likely due to severe renal failure with lactic acidosis and electrolyte disturbance from the renal failure. But has not been established of his his renal failure is from infection, or lack of p.o. intake, or progression of his cancer. (2) Dehydration Conclusion/Plan: Causing acute renal failure, hyperkalemia, lactic acidosis. This is in the context of a gentleman with stage IV bladder cancer with diffuse metastatic disease. Severe cognitive decline over the last 4 years. Now living in a care home facility. Plan: Inpatient admission Await the care home facility staff to finish with change of shift and sign out and call them back to assess his previous status Aggressive IV fluids for hydration Establish clear clear goals with son or whoever the POA is (3) Acute renal failure Conclusion/Plan: Less likely due to dehydration and decreased p.o. intake in this elderly man has been failing. Will reassess with labs to see if he is improving in the next few hours. Avoid nephrotoxic agents. We will treat empirically for possible infection until we get a urinalysis and assess for obstruction. Qualifiers: Acute renal failure type: unspecified Qualified Code(s): N17.9 - Acute kidney failure, unspecified (4) Hyperkalemia Conclusion/Plan: And lactic acidosis due to acute renal failure. Reassess labs after aggressive fluid hydration in the next few hours. He has already received calcium, d extrose, insulin in the emergency room (5) DM w/o complication type II, uncontrolled Conclusion/Plan: . Qualifiers: Glycemic state: with hyperglycemia Qualified Code(s): E11.65 - Type 2 diabetes mellitus with hyperglycemia (6) Cognitive decline Conclusion/Plan: I had the pleasure of knowing this ignacio man since 2017. Has had intermittent encounters with him over the last few years. There has definitely been a cognitive decline with a slide into dementia of Alzheimer's type. He has not had any behavioral disorders. Again, we will wait for change of shift and for the residential to assess his status there. (7) Do not intubate, cardiopulmonary resuscitation (CPR)-only code status Conclusion/Plan: Per discussion with the son and Dr. Plasencia this morning. That will be honored and that order will be written. (8) Stage IV bladder cancer Conclusion/Plan: Not a candidate for further treatment. My supposition is that some of his renal failure may be from obstruction due to tumor load or blood clots in his bladder. But we are focusing on more comfort/simple medical measures. I will not be doing an ultrasound, CT of the abdomen. Son is in agreement with that. - Lab Results Lab results reviewed: Yes Fish Bones: 06/11/21 07:12 06/11/21 12:23 - Diagnostic Imaging Results Diagnostic Imaging Results: positive: Final report reviewed Diagnostic Imaging Results Comments: Increased vascular filling suggestive of pulmonary edema. - EKG Results EKG Interpreted Independently: No Core Measures - Anticipated LOS I expect patient to be DC'd or transferred within 96 hours.: Yes - DVT/VTE - Prophylaxis VTE/DVT Device ordered at admit?: Yes
[2021-06-11] MEDS ORDERED: SODIUM CHLORIDE FLUSH 0.9% 10 ML SYRINGE IVP SCH (09:00)
[2021-06-11] MEDS ORDERED: LACTATED RINGERS 1,000 ML IV SCH (09:00)
[2021-06-11] MEDS ORDERED: VANCOMYCIN INJ 2 GM in SODIUM CHLORIDE 0.9% 500 ML IV ONE (09:15)
[2021-06-11 09:22] LABS: BILIRUBIN,URINE NEGATIVE (NEGATIVE); GLUCOSE, URINE (UA) NEGATIVE (NEGATIVE); KETONES,URINE (UA) NEGATIVE (NEGATIVE); LEUKOCYTE ESTERASE, URINE NEGATIVE (NEGATIVE); NITRITE,URINE NEGATIVE (NEGATIVE); OCCULT BLOOD,URINE MODERATE (NEGATIVE); PROTEIN,URINE 30 mg/dL (NEGATIVE); UROBILINOGEN,URINE 0.2 (NORMAL) E.U./dL (NORMAL)
[2021-06-11 09:23] LABS: CLARITY,URINE CLEAR (CLEAR)
[2021-06-11 09:31] LABS: B. PARAPERTUSSIS- RESP PCR PAN NOT DETECTED; B. PERTUSSIS- RESP PCR PANEL NOT DETECTED; C. PNEUMONIAE- RESP PCR PANEL NOT DETECTED; CORONAVIRUS 229E-RESP PCR NOT DETECTED; CORONAVIRUS HKU1-RESP PCR NOT DETECTED; CORONAVIRUS NL63-RESP PCR NOT DETECTED; CORONAVIRUS OC43-RESP PCR NOT DETECTED; HUMAN METAPNEUMOVIRUS NOT DETECTED; INFLUENZA A- RESP PCR PANEL NOT DETECTED; INFLUENZA B - RESP PCR PANEL NOT DETECTED; M. PNEUMONIAE- RESP PCR PANEL NOT DETECTED; PARAINFLUENZA VIRUS 1 NOT DETECTED; PARAINFLUENZA VIRUS 2 NOT DETECTED; PARAINFLUENZA VIRUS 3 NOT DETECTED; PARAINFLUENZA VIRUS 4 NOT DETECTED; RHINOVIRUS/ENTEROVIRUS NOT DETECTED; RSV- RESP PCR PANEL NOT DETECTED; SARS-CoV-2 -RESP PCR PANEL NOT DETECTED
[2021-06-11 09:42] VITALS: BP 63/33
--- NOTE | 2021-06-11 09:44 | XRAY Report ---
PROCEDURE: Chest 1 View X-Ray INDICATIONS: tachypnea TECHNIQUE: One view of the chest was acquired. COMPARISON: Chest x-ray 01/22/2021 FINDINGS: Surgical changes and devices: Right-sided port is present with distal tip projecting over the mid SVC . Lungs and pleura: There is an overall appearance of increased pulmonary vascularity. Trace blunting o f the left costophrenic angle is present. Mediastinum: Mediastinal contours appear normal. Heart size is mildly prominent. Bones and chest wa ll: No suspicious bony lesions. Overlying soft tissues appear unremarkable. IMPRESSION: Increased vascularity suggestive of edema. Reviewed by: Genevieve Dawson MD on 06/11/2021 9:43 AM PDT Approved by: Genevieve Dawson MD on 06/11/2021 9:43 AM PDT Station ID: [id number]
[2021-06-11 09:47] LABS: BACTERIA,URINE None Seen /HPF (None Seen); RBC,URINE 0-5 /HPF (0-5); SQUAMOUS EPITHELIAL CELL,UR NONE SEEN (<= Few); WBC,URINE 0-3 /HPF (0-3)
[2021-06-11 12:51] LABS: CALCIUM 7.9 mg/dL (8.5-10.3); CHLORIDE 107 mmol/L (101-111); GFR - MDRD 5 (>89); GLUCOSE 177 mg/dL (70-100); SODIUM 139 mmol/L (135-145)
[2021-06-11 12:53] LABS: BUN - BLOOD UREA NITROGEN 146 mg/dL (6-20); CARBON DIOXIDE - CO2 < 6 mmol/L (21-32); CREATININE 10.3 mg/dL (0.6-1.2); POTASSIUM 7.7 mmol/L (3.5-5.0)
[2021-06-11] MEDS ORDERED: ACETAMINOPHEN 650 MG SUPP PR PRN (14:55)
[2021-06-11] MEDS ORDERED: ATROPINE 1% OPHTH DROPS 2 ML SL PRN (14:55)
[2021-06-11] MEDS ORDERED: MORPHINE 2 MG/ML CARPUJECT IVP PRN (14:55)
[2021-06-11] MEDS ORDERED: CARBOXYMETHYLCELLULOSE OPHTH DROPS EACHEYE PRN (14:55)
[2021-06-11] MEDS ORDERED: LORazepam 2 MG/ML VIAL IVP PRN (14:55)
[2021-06-11] MEDS ORDERED: GLYCOPYRROLATE 1 MG/5 ML VIAL SUBQ PRN (14:55)
--- NOTE | 2021-06-11 15:08 | PROVIDER PROGRESS NOTE ---
Progress Note June 11, 2021 3:06 PM Over the course of the day the patient has received aggressive IV fluid hydration. Potassium is gone from 8.4-7.7. BUN is gone from 150 246. Creatinine is gone from 11.5-10.3. He was completely unresponsive until the last half hour when he did open his eyes and respond to the nurse in the room with a simple sentence. I have updated his son on the mottling, cyanosis, hypotension. Patient's temperature has gone down to 30.4. As such, the son is asked me to transition dad to comfort measures. He feels that if dad were to survive this event, he would not be living a good quality of life as defined by his father. He is already unhappy that he lives in a facility and not at home. To survive this and then returned to the facility to live out his days even more disabled than he already was would make his father deeply unhappy. I have given his son our phone number to give us a call if he needs any further updates on an as-needed basis. If there is a dramatic change in his father, we will give him a call.
--- NOTE | 2021-06-11 21:30 | Discharge Plan ---
Discharge Plan Problem Reviewed?: Yes Disposition: 20 No Smoking: If you smoke, Please STOP! Call for help.
--- NOTE | 2021-06-11 21:31 | DISCHARGE SUMMARY ---
Discharge Summary Admit Date: 06/11/21 Discharge Date: 06/11/21 Discharging Provider: Brian Celis Primary Care Provider: Juliette Howard Code Status: Do Not Attempt Resuscitation Discharge Disposition: 20 - DIAGNOSES Admission Diagnoses: Metabolic encephalopathy Dehydration Acute renal failure Hyperkalemia Diabetes type 2 Cognitive decline Do not intubate Stage IV bladder cancer Discharge Diagnoses with Status of Each Condition: Metabolic encephalopathy Acute renal failure Hyperkalemia Lactic acidosis Diabetes type 2 Cognitive decline Stage IV bladder cancer - HPI History of Present Illness: H&P per Dr. Duncan: I first met this patient in 2016. He was admitted for chest pain. At that time his main concern was taking care of his elderly demented . It was most likely angina but [place] was ruled out. We then met him again in January 2021. At by that time his had . There seems to be some family dynamics that were not working. He was moving back and forth between [place] and his home in [place] with close family friends from [employer]. He was estranged from his son. There was an APS referral. He was discharged to home After treatment for dehydration. He refused to go to a [facility] facility. He then returned March 24 to the emergency room, clearly unable to take care of himself. He was placed at [facility] from the emergency room and transferred there. Ambulance was called April 14 for chest pain, respiratory distress, and he was transferred to [facility]. He now returns to us with syncope. There is no clear description of his previous status. The skilled nursing is at change of shift and unable to give us a report. We do not know if he was feeling or doing well. He has a past medical history of coronary artery disease, congestive heart failure, stage IV bladder cancer. Diabetes. Dementia that has been worsening over time. They tried to get him up this morning and when they finally stood him up from bed, he passed out. He did not fall. There is no blow to the head. There were care providers on either side that gently laid him back on the bed and EMS was called. He was hypotensive in the 80s in the field and he was given a fluid bolus. He was initially seen by Dr. Ley at her change of shift. Temperature was 36.8. Pulse 55. Blood pressure 79/39. Respirations 27. 97% on room air. She started a fluid bolus on him and changed over to the care of Dr. Zane Rivera. He is confused, lethargic. He has a potassium of 8.4. Carbon dioxide less than 6. BUN 150. Creatinine 11.5. Lactic acid 7.9. BNP 156. Troponin IX. White cell count is 12.3. Hemoglobin 8.4. Covid negative. Chest x-ray has been done and the initial preliminary report is without pneumonia. Dr. Rivera's clinical suspicion is that of severe dehydration with renal failure. At this time he does not think he is infected but the patient is unable to provide us with a urinalysis. As such he is asking us to admit the patient for hydration, empiric antibiotic therapy. Dr. Plasencia has already made contact with the patient's son who is on vacation in [place]. The son is asking us to focus on more comfort measures and not aggressive procedural intervention. He is a DO NOT RESUSCITATE. - HOSPITAL COURSE Hospital Course: The patient was admitted to the floor for acute renal failure and lactic acidosis which was presumed to be secondary to dehydration from decreased oral intake. He was given empiric IV antibiotics although there had been no obvious source of infection. Despite IV hydration, the patient continued to be hypotensive with systolics in the 60s. He was also hypothermic with a temperature of 30.4 C. He had been minimally responsive and appeared cyanotic with mottling. His critical condition was discussed with the patient's son who decided to focus on his father's comfort and therefore the patient was transitioned to comfort measures only. We discontinued all IV antibiotics and fluids. He was started on Dilaudid, Ativan, atropine as needed. The patient ultimately at 21:26. The patient's son, Anibal, was contacted and notified. All of his questions were answered. - ALLERGIES Allergies/Adverse Reactions: Allergies Allergy/AdvReac Type Severity Reaction Status Date / Time No Known Drug Allergies Allergy Verified 06/11/21 06:39 - MEDICATIONS Home Medications: Ambulatory Orders Medication Instructions Recorded Confirmed hydroCHLOROthiazide 25 mg PO DAILY #30 tablet 03/25/21 [Hydrochlorothiazide] metFORMIN [Glucophage] 500 mg PO BIDWM #60 tablet 03/25/21 Atorvastatin Calcium 40 mg PO DAILY 06/11/21 06/11/21 LORazepam [Lorazepam] 2 mg PO 06/11/21 Loperamide HCl [Imodium A-D] 2 mg PO 06/11/21 06/11/21 Quetiapine Fumarate [Seroquel] 50 mg PO 06/11/21 carvediloL [Coreg] 12.5 mg PO BID 06/11/21 06/11/21 - PHYSICAL EXAM AT DISCHARGE Eyes Bilateral: positive: Other (Pupils fixed and dilated.) Respiratory: positive: Other (No respirations.) Cardiovascular: positive: Other (Absent heart sounds.) Peripheral Pulses: positive: 0 - LABS Result Diagrams: 06/11/21 07:12 06/11/21 12:23
== END 2021-06-11 21:26 | disposition expired | DRG 682 ==
LOC: EDUNIT# → ED 06:22 → MS2 08:28 → OBS 21:25 → MS2 21:50 → UNDODISIN 23:05
PROVIDERS: ADMIT Specialist; ATTEND Internal Medicine
DX: N17.9 Acute kidney failure, unspecified (principal); E87.2 Acidosis; E87.5 Hyperkalemia; G93.41 Metabolic encephalopathy; E86.0 Dehydration; I10 Essential (primary) hypertension; F03.90 Unspecified dementia, unspecified severity, without behavioral disturbance, psychotic disturbance, mood disturbance, and anxiety; F09 Unspecified mental disorder due to known physiological condition; E11.9 Type 2 diabetes mellitus without complications; C67.9 Malignant neoplasm of bladder, unspecified; Z20.822 Contact with and (suspected) exposure to COVID-19; D64.9 Anemia, unspecified; I25.10 Atherosclerotic heart disease of native coronary artery without angina pectoris; I11.0 Hypertensive heart disease with heart failure; N40.1 Benign prostatic hyperplasia with lower urinary tract symptoms; R35.0 Frequency of micturition; I50.9 Heart failure, unspecified; R35.1 Nocturia; Z66 Do not resuscitate; Z51.5 Encounter for palliative care; Z86.73 Personal history of transient ischemic attack (TIA), and cerebral infarction without residual deficits; F32.9 Major depressive disorder, single episode, unspecified; F41.9 Anxiety disorder, unspecified; E11.65 Type 2 diabetes mellitus with hyperglycemia; I95.9 Hypotension, unspecified; R68.0 Hypothermia, not associated with low environmental temperature
CPT/HCPCS: 36415; 51702; 71045; 80048; 80053; 81001; 83605; 83690; 83880; 84484; 85025; 87040; 87631; 93005; 96361; 96365; 96375; 99285; J3370; 0202U; 81003; 87086